=== PATIENT | male | born 1965 | race Caucasian/White ===

== ENCOUNTER 2019-01-07 16:15 | Emergency (ER) | payer MEDICARE, MEDICAID ==
--- NOTE | 2019-01-07 16:36 | ED Physician Chart ---
ED Chief Complaint/HPI - Patient Information Date Seen:: 01/07/19 Time Seen:: 16:30 History of Present Illness:: fever poor historian Allergies:: Allergies Allergy/AdvReac Type Severity Reaction Status Date / Time haloperidol [From Haldol] Allergy Verified 01/07/19 16:21 Vitals:: Vital Signs - 8 hr 01/07/19 16:21 Temp 97.7 F HR 85 RR 17 BP 123/77 O2 Sat % 95 Review:: Nurse's Note Reviewed, Transfer documents Reviewed ED Past Medical History - Past Medical History Obtainable: No (poor intake fever) Past Medical History: HTN, Other (epillepsy copd) Psychiatricy History: Schizophrenia ED Physical Exam - Physical Examination General/Constitutional: No distress, Non-toxic appearing Head: Atraumatic Eyes: Lids, conjuctiva normal Skin: Nl inspection ENMT: External ears, nose nl Neck: Nontender Respiratory: Nl effort/Exclusion Cardio Vascular: RRR, No murmur, gallop, rubs, NL S1 S2 GI: No tenderness/rebounding/guarding, Normal BS's, Nondistended, No McBurney tenderness Extremities: No tenderness or effusion, Full ROM Neuro/Psych: No focal deficits Misc: Normal back ED Assessment - Assessment General Assessment: febrile episode ED Septic Shock - . Is Septic Shock (SBP<90, OR Lactate>4 mmol\L) present?: No - <6hrs of presentation: Vital Signs: Vital Signs - 8 hr 01/07/19 16:21 Temp 97.7 F HR 85 RR 17 BP 123/77 O2 Sat % 95
[2019-01-07 17:04] LABS: % BASOPHILS 0.8 % (0.0-2.0); % LYMPHOCYTES 43.1 % (20.0-50.0); % MONOCYTES 11.3 % (2.0-10.0); % NEUTROPHILS 44.8 % (40.0-80.0); HEMATOCRIT 38.6 % (41.0-60); HEMOGLOBIN 12.7 gm/dL (12-16); LYMPHOCYTE ABSOLUTE 2.1 Th/cmm (1.5-3.0); MEAN CELL VOLUME 94.6 fl (80-99); MEAN CORPUSCULAR HEMOGLOBIN 31.2 pg (26.0-30.0); MEAN PLATELET VOLUME 7.4 fl; MONOCYTE ABSOLUTE 0.5 Th/cmm (0.3-1.0); NEUTROPHILE ABSOLUTE 2.2 Th/cmm (1.8-8.0); PLATELET COUNT 268 Th/cmm (150-400); RED BLOOD COUNT 4.08 Mil/cmm (4.30-5.70); RED CELL DISTRIBUTION WIDTH 14.5 % (11.5-20.0); WHITE BLOOD COUNT 4.8 Th/cmm (4.8-10.8)
[2019-01-07 17:13] LABS: URINE SOURCE RANDOM
[2019-01-07 17:16] LABS: URINE BILIRUBIN NEGATIVE (NEGATIVE); URINE BLOOD NEGATIVE (NEGATIVE); URINE GLUCOSE (UA) NEGATIVE (NEGATIVE); URINE KETONE NEGATIVE (NEGATIVE); URINE LEUKOCYTE ESTERASE NEGATIVE (NEGATIVE); URINE NITRATE NEGATIVE (NEGATIVE); URINE PH 7.5 (4.6 - 8.0); URINE PROTEIN NEGATIVE (NEGATIVE); URINE UROBILINOGEN 0.2 E.U./dL (0.2 - 1.0)
[2019-01-07 17:17] LABS: ALBUMIN 3.7 gm/dL (4.2-5.5); ANION GAP 11.9 (7.0-16.0); BUN - UREA NITROGEN 13 mg/dL (7-25); CARBON DIOXIDE 21.2 mEq/L (21.0-31.0); CHLORIDE 108 mEq/L (98-107); CREATININE - SERUM 0.9 mg/dL (0.7-1.3); GFR AFRICAN-AMERICAN > 60.0 ml/min (>90); GFR NON AFRICAN-AMERICAN > 60.0 ml/min; GLUCOSE 87 mg/dL (70-105); POTASSIUM SERUM 4.1 mEq/L (3.5-5.1); SODIUM SERUM 137 mEq/L (136-145)
[2019-01-07 17:24] LABS: URINE CLARITY CLEAR (CLEAR); URINE COLOR YELLOW; URINE MICROSCOPIC INDICATED? YES
[2019-01-07 17:26] LABS: URINE AMORPHOUS SEDIMENT MODERATE PHOSPHATES (NONE SEEN); URINE BACTERIA 1+ /hpf (NONE SEEN); URINE EPITHELIAL CELLS FEW /lpf (FEW); URINE RBC 0-2 /hpf (0-5); URINE WBC 0-2 /hpf (0-5)
--- NOTE | 2019-01-08 07:55 | Diagnostic Imaging Report ---
Portable chest x-ray Time: 1702 History: Pneumonia Allowing for portable technique the heart size is normal. No focal pulmonary parenchymal processes. No hilar or mediastinal abnormalities. There is elevation right hemidiaphragm with distended bowel. Impression: No acute abnormalities.
== END 2019-01-07 17:55 ==
LOC: ER 16:15
DX: R50.9 Fever, unspecified (principal); I10 Essential (primary) hypertension; F20.9 Schizophrenia, unspecified; Z88.5 Allergy status to narcotic agent
CPT/HCPCS: 36415-UA; 71045-TC; 80048-TC; 81001-TC; 82040-TC; 85025-TC; Z7502

== ENCOUNTER 2019-06-04 13:17 | Inpatient (IN) | payer MEDICARE, MEDICAID ==
--- NOTE | 2019-06-04 13:38 | ED Physician Chart ---
ED Chief Complaint/HPI - Patient Information Date Seen:: 06/04/19 Time Seen:: 13:20 Chief Complaint:: Agitation History of Present Illness:: onset x 3 days of agitation and hostile behavior; no report of trauma, SIs, H/As , neck pain, C/P, SOB, Abd. Pain, or urinary s/s Allergies:: Allergies Allergy/AdvReac Type Severity Reaction Status Date / Time haloperidol [From Haldol] Allergy Verified 06/04/19 13:32 Historian:: Patient, EMS Review:: Nurse's Note Reviewed, Old Chart Reviewed, EMS run form Reviewed ED Review of Systems - Review of Systems General/Constitutional: No fever, No chills, No weight loss, No weakness, No diaphoresis, No edema, No loss of appetite Skin: No skin lesions, No rash, No bruising Head: No headache, No light-headedness Eyes: No loss of vision, No pain, No diplopia ENT: No earache, No nasal drainage, No sore throat, No tinnitus Neck: No neck pain, No swelling, No thyromegaly, No stiffness, No mass noted Cardio Vascular: No chest pain, No palpitations, No PND, No orthopnea, No edema Pulmonary: No SOB, No cough, No sputum, No wheezing GI: No nausea, No vomiting, No diarrhea, No pain, No melena, No hematochezia, No constipation, No hematemesis G/U: No dysuria, No frequency, No hematuria, No nacturia Musculoskeletal: No bone or joint pain, No back pain, No muscle pain Endocrine: No polyuria, No polydipsia Psychiatric: Prior psych history, Depression, Anxiety, No suicidal ideation, No homicidal ideation, No auditory hallucination, No visual hallucination Hematopoietic: No bruising, No lymphadenopathy Allergic/Immuno: No urticaria, No angioedema Neurological: No syncope, No focal symptoms, No weakness, No paresthesia, No headache, No seizure, No dizziness, No confusion, No vertigo ED Past Medical History - Past Medical History Obtainable: Yes Past Medical History: HTN, Dyslipidemia, Seizures, Thyroid disorder Family History: HTN Social History: Non Smoker, No Alcohol, No Drug Use, Single, Care Facility Surgical History: None Psychiatricy History: Depression, Bipolar Medication: Reviewed Family Medical History - Family Member Mother History Unknown: Yes ED Physical Exam - Physical Examination General/Constitutional: Awake, Well-developed, well-nourished, Alert, No distress, GCS 15, Non-toxic appearing, Ambulatory Head: Atraumatic Eyes: Lids, conjuctiva normal, PERRL, EOMI Skin: Nl inspection, No rash, No skin lesions, No ecchymosis, Well hydrated, No lymphadenopathy ENMT: External ears, nose nl, TM canals nl, Nasal exam nl, Lips, teeth, gums nl , Oropharynx nl, Tonsils nl Neck: Nontender, Full ROM w/o pain, No JVD, No nuchal rigidity, No bruit, No mass, No stridor Respiratory: Nl effort/Exclusion, Clear to Auscultation, No Wheeze/Rhonchi/Rales Cardio Vascular: RRR, No murmur, gallop, rubs, NL S1 S2, Carotid/Femoral/Distal pulses equal bilaterally GI: No tenderness/rebounding/guarding, No organomegaly, No hernia, Normal BS's, Nondistended, No mass/bruits, No McBurney tenderness, Rectum exam nl : No CVA tenderness Extremities: No tenderness or effusion, Full ROM, normal strength in all extremities, No edema, Normal digits & nails Neuro/Psych: Alert/oriented, DTR's symmetric, Normal sensory exam, Normal motor strength, Judgement/insight normal, Mood normal, Normal gait, No focal deficits Other Neuro/Psych comments:: + Psychomotor Agitation; no SIs; Mood/Affect: Labile Misc: Normal back, No paraspinal tenderness ED Labs/Radiology/EKG Results - Lab Results Comments:: Reviewed - EKG Interpretations EKG Time:: 13:35 Rate & Rhythm: 72; NSR Comments:: non-specific st-t changes ED Septic Shock - . Is Septic Shock (SBP<90, OR Lactate>4 mmol\L) present?: No ED Reassessment (Disposition) - Reassessment Reassessment Condition:: Improved - Diagnosis Diagnosis:: Agitation; Medical Clearance; Psychosis; Bipolar Disorder - Aftercare/Follow up Instructions Aftercare/Follow-Up Instructions:: Counseled pt regarding lab results/diagnosis & need follow up, Counseled pt & family regarding lab results/diagnosis & need follow up - Patient Disposition Discharge/Transfer:: Acute Care w/in this hosp Admitted to:: [facility] Condition at Disposition:: Stable, Improved
[2019-06-04 13:53] LABS: % BASOPHILS 0.2 % (0.0-2.0); % EOSINOPHILS 0.2 % (0.0-5.0); % LYMPHOCYTES 23.7 % (20.0-50.0); % MONOCYTES 6.7 % (2.0-10.0); % NEUTROPHILS 69.2 % (40.0-80.0); HEMATOCRIT 41.1 % (41.0-60); HEMOGLOBIN 13.9 gm/dL (12-16); LYMPHOCYTE ABSOLUTE 2.4 Th/cmm (1.5-3.0); MEAN CELL VOLUME 94.5 fl (80-99); MEAN CORPUSCULAR HEMOGLOBIN 31.9 pg (26.0-30.0); MEAN CORPUSCULAR HGB CONC 33.7 pg (28.0-36.0); MONOCYTE ABSOLUTE 0.7 Th/cmm (0.3-1.0); NEUTROPHILE ABSOLUTE 7.2 Th/cmm (1.8-8.0); PLATELET COUNT 364 Th/cmm (150-400); RED BLOOD COUNT 4.35 Mil/cmm (4.30-5.70); RED CELL DISTRIBUTION WIDTH 13.4 % (11.5-20.0); WHITE BLOOD COUNT 10.3 Th/cmm (4.8-10.8)
[2019-06-04 14:07] LABS: URINE SOURCE CLEAN C
[2019-06-04 14:10] LABS: ALB/GLOB RATIO 1.3 (1.0-1.8); ALBUMIN 3.8 gm/dL (4.2-5.5); ALKALINE PHOSPHATASE 37 U/L (34-104); ANION GAP 10.9 (7.0-16.0); BILIRUBIN,TOTAL 0.4 mg/dL (0.3-1.0); BUN - UREA NITROGEN 16 mg/dL (7-25); CALCIUM SERUM 9.1 mg/dL (8.6-10.3); CARBON DIOXIDE 23.2 mEq/L (21.0-31.0); CHLORIDE 106 mEq/L (98-107); CHOLESTEROL 147 mg/dL (<200); CREATININE - SERUM 1.1 mg/dL (0.7-1.3); GFR AFRICAN-AMERICAN > 60.0 ml/min (>90); GFR NON AFRICAN-AMERICAN > 60.0 ml/min; GLUCOSE 86 mg/dL (70-105); HDL -HIGH DENSITY LIPOPROTEIN 29 mg/dL (23-92); POTASSIUM SERUM 4.1 mEq/L (3.5-5.1); SGOT 14 U/L (13-39); SGPT/ALT 10 U/L (7-52); SODIUM SERUM 136 mEq/L (136-145); TOTAL PROTEIN,SERUM 6.7 gm/dL (6.0-8.3); TRIGLYCERIDES 268 mg/dL (<150)
[2019-06-04 14:18] LABS: ACETAMINOPHEN < 10.0 ug/mL (10.0-30.0)
[2019-06-04 14:23] LABS: AMPHETAMINE URINE NEGATIVE (NEGATIVE); BARBITURATES URINE NEGATIVE (NEGATIVE); BENZODIAZEPINES QUAL URINE NEGATIVE (NEGATIVE); CANNABINOID THC NEGATIVE (NEGATIVE); COCAINE METABOLITE QUAL URINE NEGATIVE (NEGATIVE); METHADONE URINE NEGATIVE (NEGATIVE); METHAMPHETAMINES QUAL URINE NEGATIVE (NEGATIVE); OPIATES (MORPHINE) QUAL. URINE NEGATIVE (NEGATIVE); PHENCYCLIDINE (PCP) URINE NEGATIVE (NEGATIVE); TRICYCLICS (TCA) QUAL. URINE NEGATIVE (NEGATIVE)
[2019-06-04 14:26] LABS: URINE BILIRUBIN NEGATIVE (NEGATIVE); URINE BLOOD NEGATIVE (NEGATIVE); URINE GLUCOSE (UA) NEGATIVE (NEGATIVE); URINE KETONE NEGATIVE (NEGATIVE); URINE LEUKOCYTE ESTERASE NEGATIVE (NEGATIVE); URINE NITRATE NEGATIVE (NEGATIVE); URINE PH 6.5 (4.6 - 8.0); URINE PROTEIN NEGATIVE (NEGATIVE); URINE UROBILINOGEN 0.2 E.U./dL (0.2 - 1.0)
[2019-06-04 14:29] LABS: URINE CLARITY CLEAR (CLEAR); URINE COLOR YELLOW; URINE MICROSCOPIC INDICATED? YES
[2019-06-04 14:39] LABS: URINE RBC NONE SEEN /hpf (0-5); URINE WBC 0-2 /hpf (0-5)
[2019-06-04 14:40] LABS: URINE AMORPHOUS SEDIMENT FEW URATES (NONE SEEN); URINE BACTERIA FEW /hpf (NONE SEEN); URINE EPITHELIAL CELLS OCCASIONAL /lpf (FEW)
[2019-06-04 15:34] VITALS: BP 126/85
[2019-06-04] MEDS ORDERED: Pneumococcal Vaccine 0.5 mL Vial IM ONE (15:57)
[2019-06-04] MEDS ORDERED: Maalox 30 mL Cup PO PRN (15:59)
[2019-06-04] MEDS ORDERED: Magnesium Hydroxide (MOM) 30 mL UDC PO PRN (15:59)
--- NOTE | 2019-06-04 21:58 | History & Physical ---
ADMIT DATE: 06/04/2019 HISTORY OF PRESENT ILLNESS: The patient is a 53-year-old male with long history of hypothyroidism, dementia, and psychosis, admitted to [facility] under Dr. Escalante's service for the treatment. The patient is a poor historian. No pain, no shortness of breath, no cough, no fever, no chills. PAST MEDICAL HISTORY: Significant for hypothyroidism, dementia, and psychosis. PAST SURGICAL HISTORY: No recent surgery. ALLERGIES: None. MEDICATIONS: Follow admission reconciliation. SOCIAL HISTORY: He is a chronic smoker. No alcohol or drugs. FAMILY HISTORY: Noncontributory. REVIEW OF SYSTEMS: RENAL SYSTEM: No history of chronic renal disorder. CARDIOVASCULAR SYSTEM: No coronary artery disease. ENDOCRINE SYSTEM: History of hypothyroidism. GASTROINTESTINAL SYSTEM: No upper or lower GI bleed. NEUROLOGICAL SYSTEM: No seizure disorder. SKELETOMUSCULAR SYSTEM: No muscular dystrophy. HEMATOLOGICAL SYSTEM: No bleeding tendencies. RESPIRATORY SYSTEM: Chronic smoker. GENITOURINARY: No dysuria or hematuria. PHYSICAL EXAMINATION: GENERAL: He is awake, not coherent. VITAL SIGNS: Temperature 98.2, heart rate 72, blood pressure 129/78. HEENT: Pupils reactive to light and accommodation. Sclerae clear. NECK: Supple. Negative for lymphadenopathy, JVD or bruit. CHEST: Entry of air bilaterally normal. No rales, rhonchi or wheezing. HEART: S1, S2 normal. No gallop rhythm. ABDOMEN: Soft, bowel sounds positive. EXTREMITIES: No edema. BACK: Normal vertebrae. GENITALIA AND RECTAL: Done by primary physician, no complaint. NEUROLOGIC: He is awake, alert, not coherent. LABORATORY DATA: White blood cell 10.3, hemoglobin 13.9, hematocrit 41.1, platelets 362. Sodium 136, potassium 4.1, BUN 16, creatinine 0.1. ASSESSMENT: 1. Hypothyroidism. 2. Chronic smoking. 3. Dementia. 4. Psychosis. PLAN: The patient admitted to the hospital under Dr. Escalante's service. Medical problem addressed during hospitalization is psychosis. Problem addressed at discharge is hypothyroidism ____. The patient is medically stable for activity. Thank you, Dr. Escalante for asking me to see your patient. The patient will follow up with primary physician upon discharge. The patient is a full code. JOB# [id number]
[2019-06-05 08:06] LABS: A1C 5.4 % (4.8-5.6)
[2019-06-05] MEDS: Aspirin 81mg Chewable Tab PO SCH (09:11)
[2019-06-05] MEDS: Multivitamin Tab PO SCH (09:12)
--- NOTE | 2019-06-05 10:24 | Psychiatric Evaluation ---
DATE OF SERVICE: PSYCHIATRIC INITIAL EVALUATION AND MENTAL STATUS EXAMINATION PATIENT'S AGE: 53. SEX: Male. PHYSICIAN: Said Mary Escalante M.P.H. CHIEF COMPLAINT: "I need my medicine was cocaine." HISTORY OF PRESENT ILLNESS: The patient is a 53-year-old male who was transferred from [facility] because of increased agitation and increased irritability. The patient has been extremely restless and aggressive, and he was striking out towards the staff and peers, and was not able to follow any directions. Chart reviewed and the patient interviewed. The patient is extremely agitated and irritable. The patient also is asking for medication that has cocaine. Apparently, the patient has history of abusing cocaine, but he is not able to give me much information about it. The patient added that he lives in [place], though he came from [place] and he was not able to give me any information about [place]. He said he has no family and he also added that he was in correction, but he would not tell me why was he in correction. During interview, he also was restless and was getting more agitated and kept rambling from one topic to another and asking for cigarettes at times and cocaine other times. Also, staff reports that the patient did not sleep at all last night. PAST PSYCHIATRIC HISTORY: The patient has history of what seems to be schizoaffective disorder. PAST MEDICAL HISTORY: No medical problems mentioned and the patient denies. SOCIAL HISTORY: The patient lives in [facility]. He denies any current alcohol or drug use, but it seems that he might have history of using cocaine. ALLERGIES: No known allergies. MENTAL STATUS EXAMINATION: The patient appears his stated age. Tall. Disheveled. Restless. Thought processes are circumstantial and tangential with flight of ideas. The patient denied auditory or visual hallucinations, but seems to be paranoid and delusional. The patient denies any thoughts of suicide or homicide. The patient is alert and oriented to time, place, person, and situation. Intact immediate, recent and remote memories. Poor insight and poor judgment. Seems to be of average intelligence based on his verbal ability. ASSESSMENT: PRIMARY DIAGNOSIS: Schizoaffective disorder, manic episode, severe, with psychotic features. MEDICAL DIAGNOSES: None. TREATMENT PLAN: We will monitor the patient's behavior and condition closely. We will start the patient on Seroquel and trazodone, and we will adjust the dose. ESTIMATED LENGTH OF STAY: 5-7 days. PATIENT'S STRENGTHS AND WEAKNESSES: The patient's strength is not clear at this time except that he seems to be in relatively fair health. Weaknesses are his poor impulse control and poor judgment. AFTER DISCHARGE PLANS: The patient might return to [place] and outpatient treatment and followup will continue as an outpatient. [facility]# [id number]
--- NOTE | 2019-06-05 21:26 | Internal Medicine Prog Note ---
Internal Medicine Subjective - Subjective Service Date: 06/05/19 Patient seen and examined:: without staff (HE IS CONFUSED) Patient is:: awake, verbal, ambulating, talking, confused Per staff patient has:: no adverse event Internal Medicine Objective - Results Result Diagrams: 06/04/19 13:43 06/04/19 13:43 Recent Labs: Laboratory Last Values WBC 10.3 Th/cmm (4.8-10.8) 06/04/19 13:43 RBC 4.35 Mil/cmm (4.30-5.70) 06/04/19 13:43 Hgb 13.9 gm/dL (12-16) 06/04/19 13:43 Hct 41.1 % (41.0-60) 06/04/19 13:43 MCV 94.5 fl (80-99) 06/04/19 13:43 MCH 31.9 pg (26.0-30.0) H 06/04/19 13:43 MCHC Differential 33.7 pg (28.0-36.0) 06/04/19 13:43 RDW 13.4 % (11.5-20.0) 06/04/19 13:43 Plt Count 364 Th/cmm (150-400) 06/04/19 13:43 MPV 7.2 fl 06/04/19 13:43 Neutrophils % 69.2 % (40.0-80.0) 06/04/19 13:43 Lymphocytes % 23.7 % (20.0-50.0) 06/04/19 13:43 Monocytes % 6.7 % (2.0-10.0) 06/04/19 13:43 Eosinophils % 0.2 % (0.0-5.0) 06/04/19 13:43 Basophils % 0.2 % (0.0-2.0) 06/04/19 13:43 Sodium 136 mEq/L (136-145) 06/04/19 13:43 Potassium 4.1 mEq/L (3.5-5.1) 06/04/19 13:43 Chloride 106 mEq/L (98-107) 06/04/19 13:43 Carbon Dioxide 23.2 mEq/L (21.0-31.0) 06/04/19 13:43 Anion Gap 10.9 (7.0-16.0) 06/04/19 13:43 BUN 16 mg/dL (7-25) 06/04/19 13:43 Creatinine 1.1 mg/dL (0.7-1.3) 06/04/19 13:43 Est GFR ( Amer) > 60.0 ml/min (>90) 06/04/19 13:43 Est GFR (Non-Af Amer) > 60.0 ml/min 06/04/19 13:43 BUN/Creatinine Ratio 14.5 06/04/19 13:43 Glucose 86 mg/dL (70-105) 06/04/19 13:43 Calcium 9.1 mg/dL (8.6-10.3) 06/04/19 13:43 Total Bilirubin 0.4 mg/dL (0.3-1.0) 06/04/19 13:43 AST 14 U/L (13-39) 06/04/19 13:43 ALT 10 U/L (7-52) 06/04/19 13:43 Alkaline Phosphatase 37 U/L (34-104) 06/04/19 13:43 Troponin I < 0.01 ng/mL (0.01-0.05) L 06/04/19 13:43 Total Protein 6.7 gm/dL (6.0-8.3) 06/04/19 13:43 Albumin 3.8 gm/dL (4.2-5.5) L 06/04/19 13:43 Globulin 2.9 gm/dL 06/04/19 13:43 Albumin/Globulin Ratio 1.3 (1.0-1.8) 06/04/19 13:43 Triglycerides 268 mg/dL (<150) H 06/04/19 13:43 Cholesterol 147 mg/dL (<200) 06/04/19 13:43 LDL Cholesterol Direct 108 mg/dL (75-193) 06/04/19 13:43 HDL Cholesterol 29 mg/dL (23-92) 06/04/19 13:43 TSH 3.58 uIU/ml (0.34-5.60) 06/04/19 13:43 Urine Source CLEAN C 06/04/19 14:00 Urine Color YELLOW 06/04/19 14:00 Urine Clarity CLEAR (CLEAR) 06/04/19 14:00 Urine pH 6.5 (4.6 - 8.0) 06/04/19 14:00 Ur Specific [place] 1.020 (1.005-1.030) 06/04/19 14:00 Urine Protein NEGATIVE mg/dL (NEGATIVE) 06/04/19 14:00 Urine Glucose (UA) NEGATIVE mg/dL (NEGATIVE) 06/04/19 14:00 Urine Ketones NEGATIVE mg/dL (NEGATIVE) 06/04/19 14:00 Urine Blood NEGATIVE (NEGATIVE) 06/04/19 14:00 Urine Nitrate NEGATIVE (NEGATIVE) 06/04/19 14:00 Urine Bilirubin NEGATIVE (NEGATIVE) 06/04/19 14:00 Urine Urobilinogen 0.2 E.U./dL (0.2 - 1.0) 06/04/19 14:00 Ur Leukocyte Esterase NEGATIVE (NEGATIVE) 06/04/19 14:00 Urine RBC NONE SEEN /hpf (0-5) 06/04/19 14:00 Urine WBC 0-2 /hpf (0-5) 06/04/19 14:00 Ur Epithelial Cells OCCASIONAL /lpf (FEW) 06/04/19 14:00 Amorphous Sediment FEW URATES (NONE SEEN) 06/04/19 14:00 Urine Bacteria FEW /hpf (NONE SEEN) 06/04/19 14:00 Urine Mucus FEW /lpf (FEW) 06/04/19 14:00 Salicylates < 25.0 mg/L (30.0-100.0) L 06/04/19 13:43 Urine Opiates Screen NEGATIVE (NEGATIVE) 06/04/19 14:00 Urine Methadone Screen NEGATIVE (NEGATIVE) 06/04/19 14:00 Acetaminophen < 10.0 ug/mL (10.0-30.0) L 06/04/19 13:43 Ur Barbiturates Screen NEGATIVE (NEGATIVE) 06/04/19 14:00 Valproic Acid 93.9 ug/mL (50.0-100.0) 06/05/19 07:05 Ur Tricyclics Screen NEGATIVE (NEGATIVE) 06/04/19 14:00 Ur Phencyclidine Scrn NEGATIVE (NEGATIVE) 06/04/19 14:00 Amphetamines Screen NEGATIVE (NEGATIVE) 06/04/19 14:00 U Methamphetamines Scrn NEGATIVE (NEGATIVE) 06/04/19 14:00 U Benzodiazepines Scrn NEGATIVE (NEGATIVE) 06/04/19 14:00 U Cocaine Metab Screen NEGATIVE (NEGATIVE) 06/04/19 14:00 U Cannabinoids Screen NEGATIVE (NEGATIVE) 06/04/19 14:00 Ethyl Alcohol < 10 mg/dL (0-10) 06/04/19 13:43 - Physical Exam Vitals and I&O: Vital Signs Temp 98.4 F 06/05/19 20:42 Pulse 67 06/05/19 20:42 Resp 20 06/05/19 20:42 BP 111/73 06/05/19 20:42 Pulse Ox 96 06/05/19 20:42 Intake & Output 06/05/19 06/05/19 06/06/19 06:59 18:59 06:59 Intake Total 240 Balance 240 Intake: Oral 240 Other: # Voids 3 2 # Bowel Movements 1 0 Active Medications: Current Medications Acetaminophen (Tylenol) 650 mg PO Q4HR PRN PRN Reason: Mild Pain / Temp above 100 Stop: 08/03/19 15:58 Al Hydrox/Mg Hydrox/Simethicone (Maalox) 30 ml PO Q4HR PRN PRN Reason: GI DISTRESS Stop: 08/03/19 15:58 Aspirin (Aspirin Chewable) 81 mg PO DAILY [facility] Stop: 08/04/19 08:59 Last Admin: 06/05/19 09:11 Dose: 81 mg Divalproex Sodium (Depakote Er) 1,500 mg PO BID [facility]; Protocol Stop: 08/04/19 08:59 Last Admin: 06/05/19 16:52 Dose: 1,500 mg Docusate Sodium (Colace) 250 mg PO DAILY [facility] Stop: 08/04/19 08:59 Last Admin: 06/05/19 09:11 Dose: 250 mg Lorazepam (Ativan) 0.5 mg PO Q4HR PRN; Protocol PRN Reason: Agitation Stop: 08/03/19 16:04 Last Admin: 06/05/19 01:20 Dose: 0.5 mg Magnesium Hydroxide (Milk Of Magnesia) 30 ml PO HS PRN PRN Reason: Constipation Multivitamins/Vitamin C (Theragran) 1 tab PO DAILY [facility] Stop: 08/04/19 08:59 Last Admin: 06/05/19 09:12 Dose: 1 tab Quetiapine Fumarate (Seroquel) 200 mg PO TID [facility]; Protocol Stop: 08/04/19 08:59 Last Admin: 06/05/19 20:20 Dose: 200 mg Trazodone HCl (Desyrel) 200 mg PO HS [facility]; Protocol Stop: 08/04/19 20:59 Last Admin: 06/05/19 20:20 Dose: 200 mg Zolpidem Tartrate (Ambien) 5 mg PO HS PRN PRN Reason: Insomnia Stop: 08/03/19 15:58 Last Admin: 06/04/19 21:59 Dose: 5 mg General: demented HEENT: NC/AT, PERRLA, EOMI, anicteric sclerae, throat clear Neck: Supple, No JVD, No thyromegaly, +2 carotid pulse wo bruit, No LAD Lungs: CTAB Cardiovascular: RRR, Normal S1, Normal S2, without murmur Abdomen: soft, non-tender, non-distended Extremities: clear Neurological: no change Internal Medicine Assmt/Plan - Assessment Assessment: 1.HYPOTHYROIDISM. 2.CHRONIC SMOKING. 3.DEMENTIA. 4.PSYCHOSIS - Plan Plan: CONTINUE ON CURRENT MEDICATION AND DIET.
[2019-06-06] MEDS: Aspirin 81mg Chewable Tab PO SCH (08:48)
[2019-06-06] MEDS: Multivitamin Tab PO SCH (08:48)
--- NOTE | 2019-06-06 18:16 | Internal Medicine Prog Note ---
Internal Medicine Subjective - Subjective Service Date: 06/06/19 Patient seen and examined:: without staff (HE IS DOING WELL,CONFUSED) Patient is:: awake, verbal, ambulating, talking, confused Per staff patient has:: no adverse event Internal Medicine Objective - Results Result Diagrams: 06/04/19 13:43 06/04/19 13:43 Recent Labs: Laboratory Last Values WBC 10.3 Th/cmm (4.8-10.8) 06/04/19 13:43 RBC 4.35 Mil/cmm (4.30-5.70) 06/04/19 13:43 Hgb 13.9 gm/dL (12-16) 06/04/19 13:43 Hct 41.1 % (41.0-60) 06/04/19 13:43 MCV 94.5 fl (80-99) 06/04/19 13:43 MCH 31.9 pg (26.0-30.0) H 06/04/19 13:43 MCHC Differential 33.7 pg (28.0-36.0) 06/04/19 13:43 RDW 13.4 % (11.5-20.0) 06/04/19 13:43 Plt Count 364 Th/cmm (150-400) 06/04/19 13:43 MPV 7.2 fl 06/04/19 13:43 Neutrophils % 69.2 % (40.0-80.0) 06/04/19 13:43 Lymphocytes % 23.7 % (20.0-50.0) 06/04/19 13:43 Monocytes % 6.7 % (2.0-10.0) 06/04/19 13:43 Eosinophils % 0.2 % (0.0-5.0) 06/04/19 13:43 Basophils % 0.2 % (0.0-2.0) 06/04/19 13:43 Sodium 136 mEq/L (136-145) 06/04/19 13:43 Potassium 4.1 mEq/L (3.5-5.1) 06/04/19 13:43 Chloride 106 mEq/L (98-107) 06/04/19 13:43 Carbon Dioxide 23.2 mEq/L (21.0-31.0) 06/04/19 13:43 Anion Gap 10.9 (7.0-16.0) 06/04/19 13:43 BUN 16 mg/dL (7-25) 06/04/19 13:43 Creatinine 1.1 mg/dL (0.7-1.3) 06/04/19 13:43 Est GFR ( Amer) > 60.0 ml/min (>90) 06/04/19 13:43 Est GFR (Non-Af Amer) > 60.0 ml/min 06/04/19 13:43 BUN/Creatinine Ratio 14.5 06/04/19 13:43 Glucose 86 mg/dL (70-105) 06/04/19 13:43 Calcium 9.1 mg/dL (8.6-10.3) 06/04/19 13:43 Total Bilirubin 0.4 mg/dL (0.3-1.0) 06/04/19 13:43 AST 14 U/L (13-39) 06/04/19 13:43 ALT 10 U/L (7-52) 06/04/19 13:43 Alkaline Phosphatase 37 U/L (34-104) 06/04/19 13:43 Troponin I < 0.01 ng/mL (0.01-0.05) L 06/04/19 13:43 Total Protein 6.7 gm/dL (6.0-8.3) 06/04/19 13:43 Albumin 3.8 gm/dL (4.2-5.5) L 06/04/19 13:43 Globulin 2.9 gm/dL 06/04/19 13:43 Albumin/Globulin Ratio 1.3 (1.0-1.8) 06/04/19 13:43 Triglycerides 268 mg/dL (<150) H 06/04/19 13:43 Cholesterol 147 mg/dL (<200) 06/04/19 13:43 LDL Cholesterol Direct 108 mg/dL (75-193) 06/04/19 13:43 HDL Cholesterol 29 mg/dL (23-92) 06/04/19 13:43 TSH 3.58 uIU/ml (0.34-5.60) 06/04/19 13:43 Urine Source CLEAN C 06/04/19 14:00 Urine Color YELLOW 06/04/19 14:00 Urine Clarity CLEAR (CLEAR) 06/04/19 14:00 Urine pH 6.5 (4.6 - 8.0) 06/04/19 14:00 Ur Specific [place] 1.020 (1.005-1.030) 06/04/19 14:00 Urine Protein NEGATIVE mg/dL (NEGATIVE) 06/04/19 14:00 Urine Glucose (UA) NEGATIVE mg/dL (NEGATIVE) 06/04/19 14:00 Urine Ketones NEGATIVE mg/dL (NEGATIVE) 06/04/19 14:00 Urine Blood NEGATIVE (NEGATIVE) 06/04/19 14:00 Urine Nitrate NEGATIVE (NEGATIVE) 06/04/19 14:00 Urine Bilirubin NEGATIVE (NEGATIVE) 06/04/19 14:00 Urine Urobilinogen 0.2 E.U./dL (0.2 - 1.0) 06/04/19 14:00 Ur Leukocyte Esterase NEGATIVE (NEGATIVE) 06/04/19 14:00 Urine RBC NONE SEEN /hpf (0-5) 06/04/19 14:00 Urine WBC 0-2 /hpf (0-5) 06/04/19 14:00 Ur Epithelial Cells OCCASIONAL /lpf (FEW) 06/04/19 14:00 Amorphous Sediment FEW URATES (NONE SEEN) 06/04/19 14:00 Urine Bacteria FEW /hpf (NONE SEEN) 06/04/19 14:00 Urine Mucus FEW /lpf (FEW) 06/04/19 14:00 Salicylates < 25.0 mg/L (30.0-100.0) L 06/04/19 13:43 Urine Opiates Screen NEGATIVE (NEGATIVE) 06/04/19 14:00 Urine Methadone Screen NEGATIVE (NEGATIVE) 06/04/19 14:00 Acetaminophen < 10.0 ug/mL (10.0-30.0) L 06/04/19 13:43 Ur Barbiturates Screen NEGATIVE (NEGATIVE) 06/04/19 14:00 Valproic Acid 93.9 ug/mL (50.0-100.0) 06/05/19 07:05 Ur Tricyclics Screen NEGATIVE (NEGATIVE) 06/04/19 14:00 Ur Phencyclidine Scrn NEGATIVE (NEGATIVE) 06/04/19 14:00 Amphetamines Screen NEGATIVE (NEGATIVE) 06/04/19 14:00 U Methamphetamines Scrn NEGATIVE (NEGATIVE) 06/04/19 14:00 U Benzodiazepines Scrn NEGATIVE (NEGATIVE) 06/04/19 14:00 U Cocaine Metab Screen NEGATIVE (NEGATIVE) 06/04/19 14:00 U Cannabinoids Screen NEGATIVE (NEGATIVE) 06/04/19 14:00 Ethyl Alcohol < 10 mg/dL (0-10) 06/04/19 13:43 - Physical Exam Vitals and I&O: Vital Signs Temp 97.1 F 06/06/19 14:00 Pulse 63 06/06/19 14:00 Resp 20 06/06/19 14:00 BP 100/59 06/06/19 14:00 Pulse Ox 98 06/06/19 14:00 Intake & Output 06/05/19 06/06/19 06/06/19 18:59 06:59 18:59 Intake Total 480 Balance 480 Intake: Oral 480 Other: # Voids 3 3 # Bowel Movements 1 0 Active Medications: Current Medications Acetaminophen (Tylenol) 650 mg PO Q4HR PRN PRN Reason: Mild Pain / Temp above 100 Stop: 08/03/19 15:58 Al Hydrox/Mg Hydrox/Simethicone (Maalox) 30 ml PO Q4HR PRN PRN Reason: GI DISTRESS Stop: 08/03/19 15:58 Aspirin (Aspirin Chewable) 81 mg PO DAILY [facility] Stop: 08/04/19 08:59 Last Admin: 06/06/19 08:48 Dose: 81 mg Clonazepam (Klonopin) 0.5 mg PO BID [facility]; Protocol Stop: 08/05/19 16:59 Last Admin: 06/06/19 17:07 Dose: 0.5 mg Divalproex Sodium (Depakote Er) 1,500 mg PO BID [facility]; Protocol Stop: 08/04/19 08:59 Last Admin: 06/06/19 17:08 Dose: 1,500 mg Docusate Sodium (Colace) 250 mg PO DAILY [facility] Stop: 08/04/19 08:59 Last Admin: 06/06/19 08:48 Dose: 250 mg Lorazepam (Ativan) 0.5 mg PO Q4HR PRN; Protocol PRN Reason: Agitation Stop: 08/03/19 16:04 Last Admin: 06/06/19 08:48 Dose: 0.5 mg Magnesium Hydroxide (Milk Of Magnesia) 30 ml PO HS PRN PRN Reason: Constipation Multivitamins/Vitamin C (Theragran) 1 tab PO DAILY [facility] Stop: 08/04/19 08:59 Last Admin: 06/06/19 08:48 Dose: 1 tab Quetiapine Fumarate (Seroquel) 200 mg PO TID [facility]; Protocol Stop: 08/04/19 08:59 Last Admin: 06/06/19 14:09 Dose: 200 mg Trazodone HCl (Desyrel) 200 mg PO HS [facility]; Protocol Stop: 08/04/19 20:59 Last Admin: 06/05/19 20:20 Dose: 200 mg Zolpidem Tartrate (Ambien) 5 mg PO HS PRN PRN Reason: Insomnia Stop: 08/03/19 15:58 Last Admin: 06/04/19 21:59 Dose: 5 mg General: demented HEENT: NC/AT, PERRLA, EOMI, anicteric sclerae, throat clear Neck: Supple, No JVD, No thyromegaly, +2 carotid pulse wo bruit, No LAD Lungs: CTAB Cardiovascular: RRR, Normal S1, Normal S2, without murmur Abdomen: soft, non-tender, non-distended Extremities: clear Neurological: no change Internal Medicine Assmt/Plan - Assessment Assessment: 1.HYPOTHYROIDISM. 2.CHRONIC SMOKING. 3.DEMENTIA. 4.PSYCHOSIS - Plan Plan: CONTINUE ON CURRENT MEDICATION AND DIET.
--- NOTE | 2019-06-06 22:23 | Progress Notes ---
DATE: 06/06/2019 SUBJECTIVE: A 53-year-old male transferred from [place], increased agitation, irritability, restless, seems psychotic on exam, just writing and writing and writing. He will not even look up; he is writing things on paper that seem like code. Seems to be rambling. He is actually refusing to talk to me, telling me that he is writing. He does not want to be bothered. Ongoing concerns at this time for his behaviors, gets agitated, very angry, upset. Unclear if he is experiencing ongoing psychosis or possibly OCD signs and symptoms, but psychosis seems consistent given that [place] is [place] to write down a "cocaine formula." PLAN: We will continue to monitor. Continue dosing of Depakote and Seroquel. We will await studies. We will also add Klonopin to his regimen. JOB# [id number]
[2019-06-07] MEDS: Multivitamin Tab PO SCH (09:04)
[2019-06-07] MEDS: Aspirin 81mg Chewable Tab PO SCH (09:04)
--- NOTE | 2019-06-07 18:32 | Internal Medicine Prog Note ---
Internal Medicine Subjective - Subjective Service Date: 06/07/19 Patient seen and examined:: with staff (HE IS DOING BETTER,STILL CONFUSED) Patient is:: awake, verbal, ambulating, talking, confused Per staff patient has:: no adverse event Internal Medicine Objective - Results Result Diagrams: 06/04/19 13:43 06/04/19 13:43 Recent Labs: Laboratory Last Values WBC 10.3 Th/cmm (4.8-10.8) 06/04/19 13:43 RBC 4.35 Mil/cmm (4.30-5.70) 06/04/19 13:43 Hgb 13.9 gm/dL (12-16) 06/04/19 13:43 Hct 41.1 % (41.0-60) 06/04/19 13:43 MCV 94.5 fl (80-99) 06/04/19 13:43 MCH 31.9 pg (26.0-30.0) H 06/04/19 13:43 MCHC Differential 33.7 pg (28.0-36.0) 06/04/19 13:43 RDW 13.4 % (11.5-20.0) 06/04/19 13:43 Plt Count 364 Th/cmm (150-400) 06/04/19 13:43 MPV 7.2 fl 06/04/19 13:43 Neutrophils % 69.2 % (40.0-80.0) 06/04/19 13:43 Lymphocytes % 23.7 % (20.0-50.0) 06/04/19 13:43 Monocytes % 6.7 % (2.0-10.0) 06/04/19 13:43 Eosinophils % 0.2 % (0.0-5.0) 06/04/19 13:43 Basophils % 0.2 % (0.0-2.0) 06/04/19 13:43 Sodium 136 mEq/L (136-145) 06/04/19 13:43 Potassium 4.1 mEq/L (3.5-5.1) 06/04/19 13:43 Chloride 106 mEq/L (98-107) 06/04/19 13:43 Carbon Dioxide 23.2 mEq/L (21.0-31.0) 06/04/19 13:43 Anion Gap 10.9 (7.0-16.0) 06/04/19 13:43 BUN 16 mg/dL (7-25) 06/04/19 13:43 Creatinine 1.1 mg/dL (0.7-1.3) 06/04/19 13:43 Est GFR ( Amer) > 60.0 ml/min (>90) 06/04/19 13:43 Est GFR (Non-Af Amer) > 60.0 ml/min 06/04/19 13:43 BUN/Creatinine Ratio 14.5 06/04/19 13:43 Glucose 86 mg/dL (70-105) 06/04/19 13:43 Calcium 9.1 mg/dL (8.6-10.3) 06/04/19 13:43 Total Bilirubin 0.4 mg/dL (0.3-1.0) 06/04/19 13:43 AST 14 U/L (13-39) 06/04/19 13:43 ALT 10 U/L (7-52) 06/04/19 13:43 Alkaline Phosphatase 37 U/L (34-104) 06/04/19 13:43 Troponin I < 0.01 ng/mL (0.01-0.05) L 06/04/19 13:43 Total Protein 6.7 gm/dL (6.0-8.3) 06/04/19 13:43 Albumin 3.8 gm/dL (4.2-5.5) L 06/04/19 13:43 Globulin 2.9 gm/dL 06/04/19 13:43 Albumin/Globulin Ratio 1.3 (1.0-1.8) 06/04/19 13:43 Triglycerides 268 mg/dL (<150) H 06/04/19 13:43 Cholesterol 147 mg/dL (<200) 06/04/19 13:43 LDL Cholesterol Direct 108 mg/dL (75-193) 06/04/19 13:43 HDL Cholesterol 29 mg/dL (23-92) 06/04/19 13:43 TSH 3.58 uIU/ml (0.34-5.60) 06/04/19 13:43 Urine Source CLEAN C 06/04/19 14:00 Urine Color YELLOW 06/04/19 14:00 Urine Clarity CLEAR (CLEAR) 06/04/19 14:00 Urine pH 6.5 (4.6 - 8.0) 06/04/19 14:00 Ur Specific [place] 1.020 (1.005-1.030) 06/04/19 14:00 Urine Protein NEGATIVE mg/dL (NEGATIVE) 06/04/19 14:00 Urine Glucose (UA) NEGATIVE mg/dL (NEGATIVE) 06/04/19 14:00 Urine Ketones NEGATIVE mg/dL (NEGATIVE) 06/04/19 14:00 Urine Blood NEGATIVE (NEGATIVE) 06/04/19 14:00 Urine Nitrate NEGATIVE (NEGATIVE) 06/04/19 14:00 Urine Bilirubin NEGATIVE (NEGATIVE) 06/04/19 14:00 Urine Urobilinogen 0.2 E.U./dL (0.2 - 1.0) 06/04/19 14:00 Ur Leukocyte Esterase NEGATIVE (NEGATIVE) 06/04/19 14:00 Urine RBC NONE SEEN /hpf (0-5) 06/04/19 14:00 Urine WBC 0-2 /hpf (0-5) 06/04/19 14:00 Ur Epithelial Cells OCCASIONAL /lpf (FEW) 06/04/19 14:00 Amorphous Sediment FEW URATES (NONE SEEN) 06/04/19 14:00 Urine Bacteria FEW /hpf (NONE SEEN) 06/04/19 14:00 Urine Mucus FEW /lpf (FEW) 06/04/19 14:00 Salicylates < 25.0 mg/L (30.0-100.0) L 06/04/19 13:43 Urine Opiates Screen NEGATIVE (NEGATIVE) 06/04/19 14:00 Urine Methadone Screen NEGATIVE (NEGATIVE) 06/04/19 14:00 Acetaminophen < 10.0 ug/mL (10.0-30.0) L 06/04/19 13:43 Ur Barbiturates Screen NEGATIVE (NEGATIVE) 06/04/19 14:00 Valproic Acid 93.9 ug/mL (50.0-100.0) 06/05/19 07:05 Ur Tricyclics Screen NEGATIVE (NEGATIVE) 06/04/19 14:00 Ur Phencyclidine Scrn NEGATIVE (NEGATIVE) 06/04/19 14:00 Amphetamines Screen NEGATIVE (NEGATIVE) 06/04/19 14:00 U Methamphetamines Scrn NEGATIVE (NEGATIVE) 06/04/19 14:00 U Benzodiazepines Scrn NEGATIVE (NEGATIVE) 06/04/19 14:00 U Cocaine Metab Screen NEGATIVE (NEGATIVE) 06/04/19 14:00 U Cannabinoids Screen NEGATIVE (NEGATIVE) 06/04/19 14:00 Ethyl Alcohol < 10 mg/dL (0-10) 06/04/19 13:43 - Physical Exam Vitals and I&O: Vital Signs Temp 97.9 F 06/07/19 14:00 Pulse 68 06/07/19 14:00 Resp 20 06/07/19 14:00 BP 113/75 06/07/19 14:00 Pulse Ox 98 06/07/19 14:00 Intake & Output 06/06/19 06/07/19 06/07/19 18:59 06:59 18:59 Intake Total 1000 120 Balance 1000 120 Intake: Oral 1000 120 Other: # Voids 4 3 # Bowel Movements 1 Active Medications: Current Medications Acetaminophen (Tylenol) 650 mg PO Q4HR PRN PRN Reason: Mild Pain / Temp above 100 Stop: 08/03/19 15:58 Al Hydrox/Mg Hydrox/Simethicone (Maalox) 30 ml PO Q4HR PRN PRN Reason: GI DISTRESS Stop: 08/03/19 15:58 Aspirin (Aspirin Chewable) 81 mg PO DAILY EREN Stop: 08/04/19 08:59 Last Admin: 06/07/19 09:04 Dose: 81 mg Clonazepam (Klonopin) 1 mg PO BID EREN; Protocol Stop: 08/06/19 16:59 Last Admin: 06/07/19 16:20 Dose: 1 mg Divalproex Sodium (Depakote Er) 1,500 mg PO BID EREN; Protocol Stop: 08/04/19 08:59 Last Admin: 06/07/19 16:20 Dose: 1,500 mg Docusate Sodium (Colace) 250 mg PO DAILY EREN Stop: 08/04/19 08:59 Last Admin: 06/07/19 09:04 Dose: 250 mg Lorazepam (Ativan) 0.5 mg PO Q4HR PRN; Protocol PRN Reason: Agitation Stop: 08/03/19 16:04 Last Admin: 06/07/19 14:14 Dose: 0.5 mg Magnesium Hydroxide (Milk Of Magnesia) 30 ml PO HS PRN PRN Reason: Constipation Multivitamins/Vitamin C (Theragran) 1 tab PO DAILY EREN Stop: 08/04/19 08:59 Last Admin: 06/07/19 09:04 Dose: 1 tab Quetiapine Fumarate (Seroquel) 200 mg PO TID EREN; Protocol Stop: 08/04/19 08:59 Last Admin: 06/07/19 13:56 Dose: 200 mg Trazodone HCl (Desyrel) 200 mg PO HS EREN; Protocol Stop: 08/04/19 20:59 Last Admin: 06/06/19 20:28 Dose: 200 mg Zolpidem Tartrate (Ambien) 5 mg PO HS PRN PRN Reason: Insomnia Stop: 08/03/19 15:58 Last Admin: 06/04/19 21:59 Dose: 5 mg General: demented HEENT: NC/AT, PERRLA, EOMI, anicteric sclerae, throat clear Neck: Supple, No JVD, No thyromegaly, +2 carotid pulse wo bruit, No LAD Lungs: CTAB Cardiovascular: RRR, Normal S1, Normal S2, without murmur Abdomen: soft, non-tender, non-distended Extremities: clear Neurological: no change Internal Medicine Assmt/Plan - Assessment Assessment: 1.HYPOTHYROIDISM. 2.CHRONIC SMOKING. 3.DEMENTIA. 4.PSYCHOSIS - Plan Plan: CONTINUE ON CURRENT MEDICATION AND DIET.
--- NOTE | 2019-06-08 00:08 | Progress Notes ---
DATE: 06/07/2019 SUBJECTIVE: A 53-year-old male, currently in the hospital, transferred from [place], very restless, aggressive, striking out at staff, hypersexual. Right now, he is humping the bed, having sex essentially with his bed right now. When I tried to interrupt him, he states "excuse me, excuse me" and keeps humping the bed. He is completely naked. The patient is bizarre, confused, as noted very hypersexual, in his room, naked, having sex with the bed, currently on dosing of Seroquel. The patient may benefit from dose adjustments of medications. We will continue to monitor. [facility]# [id number]
[2019-06-08] MEDS: Aspirin 81mg Chewable Tab PO SCH (08:06)
[2019-06-08] MEDS: Multivitamin Tab PO SCH (08:06)
--- NOTE | 2019-06-08 16:42 | General Progress Note ---
Subjective - Review of Systems Service Date: 06/08/19 Objective - Results Result Diagrams: 06/04/19 13:43 06/04/19 13:43 Recent Labs: Laboratory Last Values WBC 10.3 Th/cmm (4.8-10.8) 06/04/19 13:43 RBC 4.35 Mil/cmm (4.30-5.70) 06/04/19 13:43 Hgb 13.9 gm/dL (12-16) 06/04/19 13:43 Hct 41.1 % (41.0-60) 06/04/19 13:43 MCV 94.5 fl (80-99) 06/04/19 13:43 MCH 31.9 pg (26.0-30.0) H 06/04/19 13:43 MCHC Differential 33.7 pg (28.0-36.0) 06/04/19 13:43 RDW 13.4 % (11.5-20.0) 06/04/19 13:43 Plt Count 364 Th/cmm (150-400) 06/04/19 13:43 MPV 7.2 fl 06/04/19 13:43 Neutrophils % 69.2 % (40.0-80.0) 06/04/19 13:43 Lymphocytes % 23.7 % (20.0-50.0) 06/04/19 13:43 Monocytes % 6.7 % (2.0-10.0) 06/04/19 13:43 Eosinophils % 0.2 % (0.0-5.0) 06/04/19 13:43 Basophils % 0.2 % (0.0-2.0) 06/04/19 13:43 Sodium 136 mEq/L (136-145) 06/04/19 13:43 Potassium 4.1 mEq/L (3.5-5.1) 06/04/19 13:43 Chloride 106 mEq/L (98-107) 06/04/19 13:43 Carbon Dioxide 23.2 mEq/L (21.0-31.0) 06/04/19 13:43 Anion Gap 10.9 (7.0-16.0) 06/04/19 13:43 BUN 16 mg/dL (7-25) 06/04/19 13:43 Creatinine 1.1 mg/dL (0.7-1.3) 06/04/19 13:43 Est GFR ( Amer) > 60.0 ml/min (>90) 06/04/19 13:43 Est GFR (Non-Af Amer) > 60.0 ml/min 06/04/19 13:43 BUN/Creatinine Ratio 14.5 06/04/19 13:43 Glucose 86 mg/dL (70-105) 06/04/19 13:43 Calcium 9.1 mg/dL (8.6-10.3) 06/04/19 13:43 Total Bilirubin 0.4 mg/dL (0.3-1.0) 06/04/19 13:43 AST 14 U/L (13-39) 06/04/19 13:43 ALT 10 U/L (7-52) 06/04/19 13:43 Alkaline Phosphatase 37 U/L (34-104) 06/04/19 13:43 Troponin I < 0.01 ng/mL (0.01-0.05) L 06/04/19 13:43 Total Protein 6.7 gm/dL (6.0-8.3) 06/04/19 13:43 Albumin 3.8 gm/dL (4.2-5.5) L 06/04/19 13:43 Globulin 2.9 gm/dL 06/04/19 13:43 Albumin/Globulin Ratio 1.3 (1.0-1.8) 06/04/19 13:43 Triglycerides 268 mg/dL (<150) H 06/04/19 13:43 Cholesterol 147 mg/dL (<200) 06/04/19 13:43 LDL Cholesterol Direct 108 mg/dL (75-193) 06/04/19 13:43 HDL Cholesterol 29 mg/dL (23-92) 06/04/19 13:43 TSH 3.58 uIU/ml (0.34-5.60) 06/04/19 13:43 Urine Source CLEAN C 06/04/19 14:00 Urine Color YELLOW 06/04/19 14:00 Urine Clarity CLEAR (CLEAR) 06/04/19 14:00 Urine pH 6.5 (4.6 - 8.0) 06/04/19 14:00 Ur Specific [place] 1.020 (1.005-1.030) 06/04/19 14:00 Urine Protein NEGATIVE mg/dL (NEGATIVE) 06/04/19 14:00 Urine Glucose (UA) NEGATIVE mg/dL (NEGATIVE) 06/04/19 14:00 Urine Ketones NEGATIVE mg/dL (NEGATIVE) 06/04/19 14:00 Urine Blood NEGATIVE (NEGATIVE) 06/04/19 14:00 Urine Nitrate NEGATIVE (NEGATIVE) 06/04/19 14:00 Urine Bilirubin NEGATIVE (NEGATIVE) 06/04/19 14:00 Urine Urobilinogen 0.2 E.U./dL (0.2 - 1.0) 06/04/19 14:00 Ur Leukocyte Esterase NEGATIVE (NEGATIVE) 06/04/19 14:00 Urine RBC NONE SEEN /hpf (0-5) 06/04/19 14:00 Urine WBC 0-2 /hpf (0-5) 06/04/19 14:00 Ur Epithelial Cells OCCASIONAL /lpf (FEW) 06/04/19 14:00 Amorphous Sediment FEW URATES (NONE SEEN) 06/04/19 14:00 Urine Bacteria FEW /hpf (NONE SEEN) 06/04/19 14:00 Urine Mucus FEW /lpf (FEW) 06/04/19 14:00 Salicylates < 25.0 mg/L (30.0-100.0) L 06/04/19 13:43 Urine Opiates Screen NEGATIVE (NEGATIVE) 06/04/19 14:00 Urine Methadone Screen NEGATIVE (NEGATIVE) 06/04/19 14:00 Acetaminophen < 10.0 ug/mL (10.0-30.0) L 06/04/19 13:43 Ur Barbiturates Screen NEGATIVE (NEGATIVE) 06/04/19 14:00 Valproic Acid 93.9 ug/mL (50.0-100.0) 06/05/19 07:05 Ur Tricyclics Screen NEGATIVE (NEGATIVE) 06/04/19 14:00 Ur Phencyclidine Scrn NEGATIVE (NEGATIVE) 06/04/19 14:00 Amphetamines Screen NEGATIVE (NEGATIVE) 06/04/19 14:00 U Methamphetamines Scrn NEGATIVE (NEGATIVE) 06/04/19 14:00 U Benzodiazepines Scrn NEGATIVE (NEGATIVE) 06/04/19 14:00 U Cocaine Metab Screen NEGATIVE (NEGATIVE) 06/04/19 14:00 U Cannabinoids Screen NEGATIVE (NEGATIVE) 06/04/19 14:00 Ethyl Alcohol < 10 mg/dL (0-10) 06/04/19 13:43 - Physical Exam Vitals and I&O: Vital Signs Temp 98.2 F 06/08/19 15:43 Pulse 73 06/08/19 15:43 Resp 20 06/08/19 15:43 BP 132/80 06/08/19 15:43 Pulse Ox 97 06/08/19 15:43 Intake & Output 06/07/19 06/08/19 06/08/19 18:59 06:59 18:59 Intake Total 1000 Balance 1000 Intake: Oral 1000 Other: # Voids 4 # Bowel Movements 1 Active Medications: Current Medications Acetaminophen (Tylenol) 650 mg PO Q4HR PRN PRN Reason: Mild Pain / Temp above 100 Stop: 08/03/19 15:58 Al Hydrox/Mg Hydrox/Simethicone (Maalox) 30 ml PO Q4HR PRN PRN Reason: GI DISTRESS Stop: 08/03/19 15:58 Aspirin (Aspirin Chewable) 81 mg PO DAILY EREN Stop: 08/04/19 08:59 Last Admin: 06/08/19 08:06 Dose: 81 mg Clonazepam (Klonopin) 1 mg PO BID EREN; Protocol Stop: 08/06/19 16:59 Last Admin: 06/08/19 08:07 Dose: 1 mg Divalproex Sodium (Depakote Er) 1,500 mg PO BID EREN; Protocol Stop: 08/04/19 08:59 Last Admin: 06/08/19 08:07 Dose: 1,500 mg Docusate Sodium (Colace) 250 mg PO DAILY EREN Stop: 08/04/19 08:59 Last Admin: 06/08/19 08:07 Dose: 250 mg [place]in Carbonate (Eskalith) 300 mg PO TID EREN; Protocol Stop: 08/07/19 08:59 Last Admin: 06/08/19 13:49 Dose: 300 mg Lorazepam (Ativan) 0.5 mg PO Q4HR PRN; Protocol PRN Reason: Agitation Stop: 08/03/19 16:04 Last Admin: 06/08/19 03:18 Dose: 0.5 mg Magnesium Hydroxide (Milk Of Magnesia) 30 ml PO HS PRN PRN Reason: Constipation Multivitamins/Vitamin C (Theragran) 1 tab PO DAILY EREN Stop: 08/04/19 08:59 Last Admin: 08/31/19 08:06 Dose: 1 tab Quetiapine Fumarate (Seroquel) 200 mg PO TID EREN; Protocol Stop: 08/04/19 08:59 Last Admin: 06/08/19 13:49 Dose: 200 mg Trazodone HCl (Desyrel) 200 mg PO HS EREN; Protocol Stop: 08/04/19 20:59 Last Admin: 06/07/19 21:01 Dose: 200 mg Zolpidem Tartrate (Ambien) 5 mg PO HS PRN PRN Reason: Insomnia Stop: 08/03/19 15:58 Last Admin: 06/04/19 21:59 Dose: 5 mg General: No acute distress HEENT: Atraumatic, PERRLA Neck: Supple, JVD Cardiovascular: Regular rate, Normal S1, Normal S2 Lungs: Clear to auscultation Abdomen: Bowel sounds, Soft Assessment/Plan - Assessment Assessment: 1.HYPOTHYROIDISM. 2.CHRONIC SMOKING. 3.DEMENTIA. 4.PSYCHOSIS - Plan Plan: continue current treatment Nutritional Asmnt/Malnutr-PDOC - Dietary Evaluation Malnutrition Findings (Please click <Entered> for more info): Nutritional Asmnt/Malnutrition Start: 06/08/19 10: 34 Text: Status: Complete Freq: Protocol: Document 06/08/19 10:35 KULWANT (Rec: 06/08/19 10:44 KULWANT RODRIGUEZ- [id number]) Nutritional Asmnt/Malnutrition Patient General Information Nutritional Screening Low Risk Diagnosis Psychosis Pertinent Medical Hx/Surgical Hx Hypothyroidism, dementia, psychosis Subjective Information Patient was admitted from [place]. Tolerating current diet order with adequate intake (100% of meals ). Current Diet Order/ Nutrition Support Regular Patient / S.O Not Indicated Pertinent Medications Maalox, Colace, MOM, Theragran Pertinent Labs (06/04) Albumin 3.8, TAG 268 Nutritional Hx/Data Height 1.85 m Height (Calculated Centimeters) 185.4 Current Weight (lbs) 90.718 kg Weight (Calculated Kilograms) 90.7 Weight (Calculated Grams) 18976.5 [place] Body Weight 184 % [place] Body Weight 108 Body Mass Index (BMI) 26.4 Recent Weight Change No Weight Status Overweight GI Symptoms GI Symptoms None Last BM 06/07 x 1 Difficult in: None Food Allergies No Cultural/Ethnic/Muslim Belief none indicated Usual diet at home unknown Skin Integrity/Comment: [place] 22, dryness Current %PO Good (75-100%) Estimated Nutritional Goals BEE in Kcals: Using Current wt Calories/Kcals/Kg 90.9 kg CBW (22-27 kcal/kg) Kcals Calculated ~1855-5201 kcal/day Protein: Using Current wt Protein g/k.8-1gm/kg Protein Calculated ~70-90 gm/day Fluid: ml ~7036-1584 ml/day (1 ml/kcal) Nutritional Problem No current Nutrition Prob Problem No nutrition diagnosis at this time Intervention/Recommendation Comments 1. Continue regular diet as tolerated by patient. Expected Outcomes/Goals Expected Outcomes/Goals Oral intake >75% of meals, weight stable or trend toward IBW, nutrition related labs WNL F/U LR 06/15
--- NOTE | 2019-06-09 02:36 | Progress Notes ---
DATE: 06/08/2019 SUBJECTIVE: The patient is currently in the hospital, very poor sleep, nonsensical, believes he is some special scientist electronics coming up with equations for cocaine, mumbling, bizarre, writing things down on paper, complete gibberish, easily agitated, yelling, very grandiose. The patient is still appearing quite manic. PLAN: We will continue dosing of Klonopin, Depakote, Seroquel, trazodone ____. Dictation Ends Here. JOB# [id number]
[2019-06-09] MEDS: Multivitamin Tab PO SCH (09:07)
[2019-06-09] MEDS: Aspirin 81mg Chewable Tab PO SCH (09:07)
--- NOTE | 2019-06-09 11:09 | General Progress Note ---
Subjective - Review of Systems Service Date: 06/09/19 Subjective: resting comfortably no distress Objective - Results Result Diagrams: 06/04/19 13:43 06/04/19 13:43 Recent Labs: Laboratory Last Values WBC 10.3 Th/cmm (4.8-10.8) 06/04/19 13:43 RBC 4.35 Mil/cmm (4.30-5.70) 06/04/19 13:43 Hgb 13.9 gm/dL (12-16) 06/04/19 13:43 Hct 41.1 % (41.0-60) 06/04/19 13:43 MCV 94.5 fl (80-99) 06/04/19 13:43 MCH 31.9 pg (26.0-30.0) H 06/04/19 13:43 MCHC Differential 33.7 pg (28.0-36.0) 06/04/19 13:43 RDW 13.4 % (11.5-20.0) 06/04/19 13:43 Plt Count 364 Th/cmm (150-400) 06/04/19 13:43 MPV 7.2 fl 06/04/19 13:43 Neutrophils % 69.2 % (40.0-80.0) 06/04/19 13:43 Lymphocytes % 23.7 % (20.0-50.0) 06/04/19 13:43 Monocytes % 6.7 % (2.0-10.0) 06/04/19 13:43 Eosinophils % 0.2 % (0.0-5.0) 06/04/19 13:43 Basophils % 0.2 % (0.0-2.0) 06/04/19 13:43 Sodium 136 mEq/L (136-145) 06/04/19 13:43 Potassium 4.1 mEq/L (3.5-5.1) 06/04/19 13:43 Chloride 106 mEq/L (98-107) 06/04/19 13:43 Carbon Dioxide 23.2 mEq/L (21.0-31.0) 06/04/19 13:43 Anion Gap 10.9 (7.0-16.0) 06/04/19 13:43 BUN 16 mg/dL (7-25) 06/04/19 13:43 Creatinine 1.1 mg/dL (0.7-1.3) 06/04/19 13:43 Est GFR ( Amer) > 60.0 ml/min (>90) 06/04/19 13:43 Est GFR (Non-Af Amer) > 60.0 ml/min 06/04/19 13:43 BUN/Creatinine Ratio 14.5 06/04/19 13:43 Glucose 86 mg/dL (70-105) 06/04/19 13:43 Calcium 9.1 mg/dL (8.6-10.3) 06/04/19 13:43 Total Bilirubin 0.4 mg/dL (0.3-1.0) 06/04/19 13:43 AST 14 U/L (13-39) 06/04/19 13:43 ALT 10 U/L (7-52) 06/04/19 13:43 Alkaline Phosphatase 37 U/L (34-104) 06/04/19 13:43 Troponin I < 0.01 ng/mL (0.01-0.05) L 06/04/19 13:43 Total Protein 6.7 gm/dL (6.0-8.3) 06/04/19 13:43 Albumin 3.8 gm/dL (4.2-5.5) L 06/04/19 13:43 Globulin 2.9 gm/dL 06/04/19 13:43 Albumin/Globulin Ratio 1.3 (1.0-1.8) 06/04/19 13:43 Triglycerides 268 mg/dL (<150) H 06/04/19 13:43 Cholesterol 147 mg/dL (<200) 06/04/19 13:43 LDL Cholesterol Direct 108 mg/dL (75-193) 06/04/19 13:43 HDL Cholesterol 29 mg/dL (23-92) 06/04/19 13:43 TSH 3.58 uIU/ml (0.34-5.60) 06/04/19 13:43 Urine Source CLEAN C 06/04/19 14:00 Urine Color YELLOW 06/04/19 14:00 Urine Clarity CLEAR (CLEAR) 06/04/19 14:00 Urine pH 6.5 (4.6 - 8.0) 06/04/19 14:00 Ur Specific [place] 1.020 (1.005-1.030) 06/04/19 14:00 Urine Protein NEGATIVE mg/dL (NEGATIVE) 06/04/19 14:00 Urine Glucose (UA) NEGATIVE mg/dL (NEGATIVE) 06/04/19 14:00 Urine Ketones NEGATIVE mg/dL (NEGATIVE) 06/04/19 14:00 Urine Blood NEGATIVE (NEGATIVE) 06/04/19 14:00 Urine Nitrate NEGATIVE (NEGATIVE) 06/04/19 14:00 Urine Bilirubin NEGATIVE (NEGATIVE) 06/04/19 14:00 Urine Urobilinogen 0.2 E.U./dL (0.2 - 1.0) 06/04/19 14:00 Ur Leukocyte Esterase NEGATIVE (NEGATIVE) 06/04/19 14:00 Urine RBC NONE SEEN /hpf (0-5) 06/04/19 14:00 Urine WBC 0-2 /hpf (0-5) 06/04/19 14:00 Ur Epithelial Cells OCCASIONAL /lpf (FEW) 06/04/19 14:00 Amorphous Sediment FEW URATES (NONE SEEN) 06/04/19 14:00 Urine Bacteria FEW /hpf (NONE SEEN) 06/04/19 14:00 Urine Mucus FEW /lpf (FEW) 06/04/19 14:00 Salicylates < 25.0 mg/L (30.0-100.0) L 06/04/19 13:43 Urine Opiates Screen NEGATIVE (NEGATIVE) 06/04/19 14:00 Urine Methadone Screen NEGATIVE (NEGATIVE) 06/04/19 14:00 Acetaminophen < 10.0 ug/mL (10.0-30.0) L 06/04/19 13:43 Ur Barbiturates Screen NEGATIVE (NEGATIVE) 06/04/19 14:00 Valproic Acid 93.9 ug/mL (50.0-100.0) 06/05/19 07:05 Ur Tricyclics Screen NEGATIVE (NEGATIVE) 06/04/19 14:00 Ur Phencyclidine Scrn NEGATIVE (NEGATIVE) 06/04/19 14:00 Amphetamines Screen NEGATIVE (NEGATIVE) 06/04/19 14:00 U Methamphetamines Scrn NEGATIVE (NEGATIVE) 06/04/19 14:00 U Benzodiazepines Scrn NEGATIVE (NEGATIVE) 06/04/19 14:00 U Cocaine Metab Screen NEGATIVE (NEGATIVE) 06/04/19 14:00 U Cannabinoids Screen NEGATIVE (NEGATIVE) 06/04/19 14:00 Ethyl Alcohol < 10 mg/dL (0-10) 06/04/19 13:43 - Physical Exam Vitals and I&O: Vital Signs Temp 97.9 F 06/09/19 06:20 Pulse 53 06/09/19 06:20 Resp 19 06/09/19 06:20 BP 98/57 06/09/19 06:20 Pulse Ox 97 06/09/19 06:20 Intake & Output 06/08/19 06/09/19 06/09/19 18:59 06:59 18:59 Intake Total 1400 480 Balance 1400 480 Intake: Oral 1400 480 Other: # Voids 5 1 # Bowel Movements 1 Active Medications: Current Medications Acetaminophen (Tylenol) 650 mg PO Q4HR PRN PRN Reason: Mild Pain / Temp above 100 Stop: 08/03/19 15:58 Al Hydrox/Mg Hydrox/Simethicone (Maalox) 30 ml PO Q4HR PRN PRN Reason: GI DISTRESS Stop: 08/03/19 15:58 Aspirin (Aspirin Chewable) 81 mg PO DAILY EREN Stop: 08/04/19 08:59 Last Admin: 06/09/19 09:07 Dose: 81 mg Clonazepam (Klonopin) 1 mg PO BID EREN; Protocol Stop: 08/06/19 16:59 Last Admin: 06/09/19 09:07 Dose: 1 mg Divalproex Sodium (Depakote Er) 1,500 mg PO BID EREN; Protocol Stop: 08/04/19 08:59 Last Admin: 06/09/19 09:06 Dose: 1,500 mg Docusate Sodium (Colace) 250 mg PO DAILY EREN Stop: 08/04/19 08:59 Last Admin: 06/09/19 09:06 Dose: 250 mg Cecil Carbonate (Eskalith) 300 mg PO TID EREN; Protocol Stop: 08/07/19 08:59 Last Admin: 06/09/19 09:07 Dose: 300 mg Lorazepam (Ativan) 0.5 mg PO Q4HR PRN; Protocol PRN Reason: Agitation Stop: 08/03/19 16:04 Last Admin: 06/08/19 03:18 Dose: 0.5 mg Magnesium Hydroxide (Milk Of Magnesia) 30 ml PO HS PRN PRN Reason: Constipation Multivitamins/Vitamin C (Theragran) 1 tab PO DAILY EREN Stop: 08/04/19 08:59 Last Admin: 06/09/19 09:07 Dose: 1 tab Quetiapine Fumarate (Seroquel) 200 mg PO TID EREN; Protocol Stop: 08/04/19 08:59 Last Admin: 06/09/19 09:07 Dose: 200 mg Trazodone HCl (Desyrel) 200 mg PO HS EREN; Protocol Stop: 08/04/19 20:59 Last Admin: 06/08/19 20:48 Dose: 200 mg Zolpidem Tartrate (Ambien) 5 mg PO HS PRN PRN Reason: Insomnia Stop: 08/03/19 15:58 Last Admin: 06/04/19 21:59 Dose: 5 mg General: No acute distress HEENT: Atraumatic, PERRLA Neck: Supple, JVD Cardiovascular: Regular rate, Normal S1, Normal S2 Lungs: Clear to auscultation Abdomen: Bowel sounds, Soft Assessment/Plan - Assessment Assessment: 1.HYPOTHYROIDISM. 2.CHRONIC SMOKING. 3.DEMENTIA. 4.PSYCHOSIS - Plan Plan: continue current treatment Nutritional Asmnt/Malnutr-PDOC - Dietary Evaluation Malnutrition Findings (Please click <Entered> for more info): Nutritional Asmnt/Malnutrition Start: 06/08/19 10: 34 Text: Status: Complete Freq: Protocol: Document 06/08/19 10:35 KULWANT (Rec: 06/08/19 10:44 KULWANT [id number]) Nutritional Asmnt/Malnutrition Patient General Information Nutritional Screening Low Risk Diagnosis Psychosis Pertinent Medical Hx/Surgical Hx Hypothyroidism, dementia, psychosis Subjective Information Patient was admitted from [place]. Tolerating current diet order with adequate intake (100% of meals ). Current Diet Order/ Nutrition Support Regular Patient / S.O Not Indicated Pertinent Medications Maalox, Colace, MOM, Theragran Pertinent Labs (06/04) Albumin 3.8, TAG 268 Nutritional Hx/Data Height 1.85 m Height (Calculated Centimeters) 185.4 Current Weight (lbs) 90.718 kg Weight (Calculated Kilograms) 90.7 Weight (Calculated Grams) 10132.5 [place] Body Weight 184 % [place] Body Weight 108 Body Mass Index (BMI) 26.4 Recent Weight Change No Weight Status Overweight GI Symptoms GI Symptoms None Last BM 06/07 x 1 Difficult in: None Food Allergies No Cultural/Ethnic/[place]ru[place] Belief none indicated Usual diet at home unknown Skin Integrity/Comment: [place] 22, dryness Current %PO Good (75-100%) Estimated Nutritional Goals BEE in Kcals: Using Current wt Calories/Kcals/Kg 90.9 kg CBW (22-27 kcal/kg) Kcals Calculated ~2195-9536 kcal/day Protein: Using Current wt Protein g/k.8-1gm/kg Protein Calculated ~70-90 gm/day Fluid: ml ~2398-6874 ml/day (1 ml/kcal) Nutritional Problem No current Nutrition Prob Problem No nutrition diagnosis at this time Intervention/Recommendation Comments 1. Continue regular diet as tolerated by patient. Expected Outcomes/Goals Expected Outcomes/Goals Oral intake >75% of meals, weight stable or trend toward IBW, nutrition related labs WNL F/U LR 06/15
--- NOTE | 2019-06-09 23:48 | Progress Notes ---
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 He did sleep somewhat better last night. He was quiet last night. ASSESSMENT: The patient remains symptomatic, manic appearing, delusional, grandiose, continue to monitor. JOB# [id number]
[2019-06-10] MEDS: Multivitamin Tab PO SCH (08:55)
[2019-06-10] MEDS: Aspirin 81mg Chewable Tab PO SCH (08:55)
--- NOTE | 2019-06-10 14:14 | General Progress Note ---
Subjective - Review of Systems Service Date: 06/10/19 Subjective: resting comfortably no distress Objective - Results Result Diagrams: 06/04/19 13:43 06/04/19 13:43 Recent Labs: Laboratory Last Values WBC 10.3 Th/cmm (4.8-10.8) 06/04/19 13:43 RBC 4.35 Mil/cmm (4.30-5.70) 06/04/19 13:43 Hgb 13.9 gm/dL (12-16) 06/04/19 13:43 Hct 41.1 % (41.0-60) 06/04/19 13:43 MCV 94.5 fl (80-99) 06/04/19 13:43 MCH 31.9 pg (26.0-30.0) H 06/04/19 13:43 MCHC Differential 33.7 pg (28.0-36.0) 06/04/19 13:43 RDW 13.4 % (11.5-20.0) 06/04/19 13:43 Plt Count 364 Th/cmm (150-400) 06/04/19 13:43 MPV 7.2 fl 06/04/19 13:43 Neutrophils % 69.2 % (40.0-80.0) 06/04/19 13:43 Lymphocytes % 23.7 % (20.0-50.0) 06/04/19 13:43 Monocytes % 6.7 % (2.0-10.0) 06/04/19 13:43 Eosinophils % 0.2 % (0.0-5.0) 06/04/19 13:43 Basophils % 0.2 % (0.0-2.0) 06/04/19 13:43 Sodium 136 mEq/L (136-145) 06/04/19 13:43 Potassium 4.1 mEq/L (3.5-5.1) 06/04/19 13:43 Chloride 106 mEq/L (98-107) 06/04/19 13:43 Carbon Dioxide 23.2 mEq/L (21.0-31.0) 06/04/19 13:43 Anion Gap 10.9 (7.0-16.0) 06/04/19 13:43 BUN 16 mg/dL (7-25) 06/04/19 13:43 Creatinine 1.1 mg/dL (0.7-1.3) 06/04/19 13:43 Est GFR ( Amer) > 60.0 ml/min (>90) 06/04/19 13:43 Est GFR (Non-Af Amer) > 60.0 ml/min 06/04/19 13:43 BUN/Creatinine Ratio 14.5 06/04/19 13:43 Glucose 86 mg/dL (70-105) 06/04/19 13:43 Calcium 9.1 mg/dL (8.6-10.3) 06/04/19 13:43 Total Bilirubin 0.4 mg/dL (0.3-1.0) 06/04/19 13:43 AST 14 U/L (13-39) 06/04/19 13:43 ALT 10 U/L (7-52) 06/04/19 13:43 Alkaline Phosphatase 37 U/L (34-104) 06/04/19 13:43 Troponin I < 0.01 ng/mL (0.01-0.05) L 06/04/19 13:43 Total Protein 6.7 gm/dL (6.0-8.3) 06/04/19 13:43 Albumin 3.8 gm/dL (4.2-5.5) L 06/04/19 13:43 Globulin 2.9 gm/dL 06/04/19 13:43 Albumin/Globulin Ratio 1.3 (1.0-1.8) 06/04/19 13:43 Triglycerides 268 mg/dL (<150) H 06/04/19 13:43 Cholesterol 147 mg/dL (<200) 06/04/19 13:43 LDL Cholesterol Direct 108 mg/dL (75-193) 06/04/19 13:43 HDL Cholesterol 29 mg/dL (23-92) 06/04/19 13:43 TSH 3.58 uIU/ml (0.34-5.60) 06/04/19 13:43 Urine Source CLEAN C 06/04/19 14:00 Urine Color YELLOW 06/04/19 14:00 Urine Clarity CLEAR (CLEAR) 06/04/19 14:00 Urine pH 6.5 (4.6 - 8.0) 06/04/19 14:00 Ur Specific [place] 1.020 (1.005-1.030) 06/04/19 14:00 Urine Protein NEGATIVE mg/dL (NEGATIVE) 06/04/19 14:00 Urine Glucose (UA) NEGATIVE mg/dL (NEGATIVE) 06/04/19 14:00 Urine Ketones NEGATIVE mg/dL (NEGATIVE) 06/04/19 14:00 Urine Blood NEGATIVE (NEGATIVE) 06/04/19 14:00 Urine Nitrate NEGATIVE (NEGATIVE) 06/04/19 14:00 Urine Bilirubin NEGATIVE (NEGATIVE) 06/04/19 14:00 Urine Urobilinogen 0.2 E.U./dL (0.2 - 1.0) 06/04/19 14:00 Ur Leukocyte Esterase NEGATIVE (NEGATIVE) 06/04/19 14:00 Urine RBC NONE SEEN /hpf (0-5) 06/04/19 14:00 Urine WBC 0-2 /hpf (0-5) 06/04/19 14:00 Ur Epithelial Cells OCCASIONAL /lpf (FEW) 06/04/19 14:00 Amorphous Sediment FEW URATES (NONE SEEN) 06/04/19 14:00 Urine Bacteria FEW /hpf (NONE SEEN) 06/04/19 14:00 Urine Mucus FEW /lpf (FEW) 06/04/19 14:00 Salicylates < 25.0 mg/L (30.0-100.0) L 06/04/19 13:43 Urine Opiates Screen NEGATIVE (NEGATIVE) 06/04/19 14:00 Urine Methadone Screen NEGATIVE (NEGATIVE) 06/04/19 14:00 Acetaminophen < 10.0 ug/mL (10.0-30.0) L 06/04/19 13:43 Ur Barbiturates Screen NEGATIVE (NEGATIVE) 06/04/19 14:00 Valproic Acid 93.9 ug/mL (50.0-100.0) 06/05/19 07:05 Ur Tricyclics Screen NEGATIVE (NEGATIVE) 06/04/19 14:00 Ur Phencyclidine Scrn NEGATIVE (NEGATIVE) 06/04/19 14:00 Amphetamines Screen NEGATIVE (NEGATIVE) 06/04/19 14:00 U Methamphetamines Scrn NEGATIVE (NEGATIVE) 06/04/19 14:00 U Benzodiazepines Scrn NEGATIVE (NEGATIVE) 06/04/19 14:00 U Cocaine Metab Screen NEGATIVE (NEGATIVE) 06/04/19 14:00 U Cannabinoids Screen NEGATIVE (NEGATIVE) 06/04/19 14:00 Ethyl Alcohol < 10 mg/dL (0-10) 06/04/19 13:43 RPR NONREACTIVE (NONREACTIVE) 06/04/19 13:43 - Physical Exam Vitals and I&O: Vital Signs Temp 98.2 F 06/10/19 14:12 Pulse 75 06/10/19 14:12 Resp 18 06/10/19 14:12 BP 111/63 06/10/19 14:12 Pulse Ox 92 06/10/19 14:12 Intake & Output 06/09/19 06/10/19 06/10/19 18:59 06:59 18:59 Intake Total 1000 480 Balance 1000 480 Intake: Oral 1000 480 Other: # Voids 4 1 # Bowel Movements 1 Active Medications: Current Medications Acetaminophen (Tylenol) 650 mg PO Q4HR PRN PRN Reason: Mild Pain / Temp above 100 Stop: 08/03/19 15:58 Al Hydrox/Mg Hydrox/Simethicone (Maalox) 30 ml PO Q4HR PRN PRN Reason: GI DISTRESS Stop: 08/03/19 15:58 Aspirin (Aspirin Chewable) 81 mg PO DAILY EREN Stop: 08/04/19 08:59 Last Admin: 06/10/19 08:55 Dose: 81 mg Clonazepam (Klonopin) 1 mg PO BID EREN; Protocol Stop: 08/06/19 16:59 Last Admin: 06/10/19 08:55 Dose: 1 mg Divalproex Sodium (Depakote Er) 1,500 mg PO BID EREN; Protocol Stop: 08/04/19 08:59 Last Admin: 06/10/19 08:55 Dose: 1,500 mg Docusate Sodium (Colace) 250 mg PO DAILY EREN Stop: 08/04/19 08:59 Last Admin: 06/10/19 08:55 Dose: 250 mg [place] Carbonate (Eskalith) 300 mg PO TID EREN; Protocol Stop: 08/07/19 08:59 Last Admin: 06/10/19 14:00 Dose: 300 mg Lorazepam (Ativan) 0.5 mg PO Q4HR PRN; Protocol PRN Reason: Agitation Stop: 08/03/19 16:04 Last Admin: 06/09/19 21:11 Dose: 0.5 mg Magnesium Hydroxide (Milk Of Magnesia) 30 ml PO HS PRN PRN Reason: Constipation Multivitamins/Vitamin C (Theragran) 1 tab PO DAILY EREN Stop: 08/04/19 08:59 Last Admin: 06/10/19 08:55 Dose: 1 tab Quetiapine Fumarate 200 mg/ (Quetiapine Fumarate 25 mg) 225 mg PO TID EREN Stop: 08/09/19 13:59 Last Admin: 06/10/19 14:00 Dose: 225 mg Trazodone HCl (Desyrel) 200 mg PO HS EREN; Protocol Stop: 08/04/19 20:59 Last Admin: 06/09/19 21:11 Dose: 200 mg Zolpidem Tartrate (Ambien) 5 mg PO HS PRN PRN Reason: Insomnia Stop: 08/03/19 15:58 Last Admin: 06/09/19 23:00 Dose: 5 mg General: No acute distress HEENT: Atraumatic, PERRLA Neck: Supple, JVD Cardiovascular: Regular rate, Normal S1, Normal S2 Lungs: Clear to auscultation Abdomen: Bowel sounds, Soft Assessment/Plan - Assessment Assessment: 1.HYPOTHYROIDISM. 2.CHRONIC SMOKING. 3.DEMENTIA. 4.PSYCHOSIS - Plan Plan: continue current treatment Nutritional Asmnt/Malnutr-PDOC - Dietary Evaluation Malnutrition Findings (Please click <Entered> for more info): Nutritional Asmnt/Malnutrition Start: 06/08/19 10: 34 Text: Status: Complete Freq: Protocol: Document 06/08/19 10:35 KULWANT (Rec: 06/08/19 10:44 KULWANT MICHAEL- [email or web address]) Nutritional Asmnt/Malnutrition Patient General Information Nutritional Screening Low Risk Diagnosis Psychosis Pertinent Medical Hx/Surgical Hx Hypothyroidism, dementia, psychosis Subjective Information Patient was admitted from [place]. Tolerating current diet order with adequate intake (100% of meals ). Current Diet Order/ Nutrition Support Regular Patient / S.O Not Indicated Pertinent Medications Maalox, Colace, MOM, Theragran Pertinent Labs (06/04) Albumin 3.8, TAG 268 Nutritional Hx/Data Height 1.85 m Height (Calculated Centimeters) 185.4 Current Weight (lbs) 90.718 kg Weight (Calculated Kilograms) 90.7 Weight (Calculated Grams) 04358.5 [place] Body Weight 184 % [place] Body Weight 108 Body Mass Index (BMI) 26.4 Recent Weight Change No Weight Status Overweight GI Symptoms GI Symptoms None Last BM 06/07 x 1 Difficult in: None Food Allergies No Cultural/Ethnic/Lutheran Belief none indicated Usual diet at home unknown Skin Integrity/Comment: [place] 22, dryness Current %PO Good (75-100%) Estimated Nutritional Goals BEE in Kcals: Using Current wt Calories/Kcals/Kg 90.9 kg CBW (22-27 kcal/kg) Kcals Calculated ~9675-3713 kcal/day Protein: Using Current wt Protein g/k.8-1gm/kg Protein Calculated ~70-90 gm/day Fluid: ml ~9434-6509 ml/day (1 ml/kcal) Nutritional Problem No current Nutrition Prob Problem No nutrition diagnosis at this time Intervention/Recommendation Comments 1. Continue regular diet as tolerated by patient. Expected Outcomes/Goals Expected Outcomes/Goals Oral intake >75% of meals, weight stable or trend toward IBW, nutrition related labs WNL F/U LR 06/15
--- NOTE | 2019-06-10 16:26 | Progress Notes ---
DATE: 06/10/2019 The patient is currently in the hospital, poor orientation, rambling, talking nonsense, talking to someone who is not in the room with him, anxious, throwing things down, ongoing psychotic symptoms, manic symptoms, currently on dosing of Seroquel. I will be increasing his dose of Seroquel today. ASSESSMENT: The patient remains manic, still psychotic, delusional, grandiose. [facility]# [id number]
[2019-06-11] MEDS: Aspirin 81mg Chewable Tab PO SCH (09:18)
[2019-06-11] MEDS: Multivitamin Tab PO SCH (09:18)
--- NOTE | 2019-06-11 21:54 | Internal Medicine Prog Note ---
Internal Medicine Subjective - Subjective Service Date: 06/11/19 Patient seen and examined:: without staff (HE IS CONFUSED) Patient is:: awake, verbal, ambulating, talking, confused Per staff patient has:: no adverse event Internal Medicine Objective - Results Result Diagrams: 06/04/19 13:43 06/04/19 13:43 Recent Labs: Laboratory Last Values WBC 10.3 Th/cmm (4.8-10.8) 06/04/19 13:43 RBC 4.35 Mil/cmm (4.30-5.70) 06/04/19 13:43 Hgb 13.9 gm/dL (12-16) 06/04/19 13:43 Hct 41.1 % (41.0-60) 06/04/19 13:43 MCV 94.5 fl (80-99) 06/04/19 13:43 MCH 31.9 pg (26.0-30.0) H 06/04/19 13:43 MCHC Differential 33.7 pg (28.0-36.0) 06/04/19 13:43 RDW 13.4 % (11.5-20.0) 06/04/19 13:43 Plt Count 364 Th/cmm (150-400) 06/04/19 13:43 MPV 7.2 fl 06/04/19 13:43 Neutrophils % 69.2 % (40.0-80.0) 06/04/19 13:43 Lymphocytes % 23.7 % (20.0-50.0) 06/04/19 13:43 Monocytes % 6.7 % (2.0-10.0) 06/04/19 13:43 Eosinophils % 0.2 % (0.0-5.0) 06/04/19 13:43 Basophils % 0.2 % (0.0-2.0) 06/04/19 13:43 Sodium 136 mEq/L (136-145) 06/04/19 13:43 Potassium 4.1 mEq/L (3.5-5.1) 06/04/19 13:43 Chloride 106 mEq/L (98-107) 06/04/19 13:43 Carbon Dioxide 23.2 mEq/L (21.0-31.0) 06/04/19 13:43 Anion Gap 10.9 (7.0-16.0) 06/04/19 13:43 BUN 16 mg/dL (7-25) 06/04/19 13:43 Creatinine 1.1 mg/dL (0.7-1.3) 06/04/19 13:43 Est GFR ( Amer) > 60.0 ml/min (>90) 06/04/19 13:43 Est GFR (Non-Af Amer) > 60.0 ml/min 06/04/19 13:43 BUN/Creatinine Ratio 14.5 06/04/19 13:43 Glucose 86 mg/dL (70-105) 06/04/19 13:43 Calcium 9.1 mg/dL (8.6-10.3) 06/04/19 13:43 Total Bilirubin 0.4 mg/dL (0.3-1.0) 06/04/19 13:43 AST 14 U/L (13-39) 06/04/19 13:43 ALT 10 U/L (7-52) 06/04/19 13:43 Alkaline Phosphatase 37 U/L (34-104) 06/04/19 13:43 Troponin I < 0.01 ng/mL (0.01-0.05) L 06/04/19 13:43 Total Protein 6.7 gm/dL (6.0-8.3) 06/04/19 13:43 Albumin 3.8 gm/dL (4.2-5.5) L 06/04/19 13:43 Globulin 2.9 gm/dL 06/04/19 13:43 Albumin/Globulin Ratio 1.3 (1.0-1.8) 06/04/19 13:43 Triglycerides 268 mg/dL (<150) H 06/04/19 13:43 Cholesterol 147 mg/dL (<200) 06/04/19 13:43 LDL Cholesterol Direct 108 mg/dL (75-193) 06/04/19 13:43 HDL Cholesterol 29 mg/dL (23-92) 06/04/19 13:43 TSH 3.58 uIU/ml (0.34-5.60) 06/04/19 13:43 Urine Source CLEAN C 06/04/19 14:00 Urine Color YELLOW 06/04/19 14:00 Urine Clarity CLEAR (CLEAR) 06/04/19 14:00 Urine pH 6.5 (4.6 - 8.0) 06/04/19 14:00 Ur Specific [place] 1.020 (1.005-1.030) 06/04/19 14:00 Urine Protein NEGATIVE mg/dL (NEGATIVE) 06/04/19 14:00 Urine Glucose (UA) NEGATIVE mg/dL (NEGATIVE) 06/04/19 14:00 Urine Ketones NEGATIVE mg/dL (NEGATIVE) 06/04/19 14:00 Urine Blood NEGATIVE (NEGATIVE) 06/04/19 14:00 Urine Nitrate NEGATIVE (NEGATIVE) 06/04/19 14:00 Urine Bilirubin NEGATIVE (NEGATIVE) 06/04/19 14:00 Urine Urobilinogen 0.2 E.U./dL (0.2 - 1.0) 06/04/19 14:00 Ur Leukocyte Esterase NEGATIVE (NEGATIVE) 06/04/19 14:00 Urine RBC NONE SEEN /hpf (0-5) 06/04/19 14:00 Urine WBC 0-2 /hpf (0-5) 06/04/19 14:00 Ur Epithelial Cells OCCASIONAL /lpf (FEW) 06/04/19 14:00 Amorphous Sediment FEW URATES (NONE SEEN) 06/04/19 14:00 Urine Bacteria FEW /hpf (NONE SEEN) 06/04/19 14:00 Urine Mucus FEW /lpf (FEW) 06/04/19 14:00 Salicylates < 25.0 mg/L (30.0-100.0) L 06/04/19 13:43 Urine Opiates Screen NEGATIVE (NEGATIVE) 06/04/19 14:00 Urine Methadone Screen NEGATIVE (NEGATIVE) 06/04/19 14:00 Acetaminophen < 10.0 ug/mL (10.0-30.0) L 06/04/19 13:43 Ur Barbiturates Screen NEGATIVE (NEGATIVE) 06/04/19 14:00 Valproic Acid 93.9 ug/mL (50.0-100.0) 06/05/19 07:05 Ur Tricyclics Screen NEGATIVE (NEGATIVE) 06/04/19 14:00 Ur Phencyclidine Scrn NEGATIVE (NEGATIVE) 06/04/19 14:00 Amphetamines Screen NEGATIVE (NEGATIVE) 06/04/19 14:00 U Methamphetamines Scrn NEGATIVE (NEGATIVE) 06/04/19 14:00 U Benzodiazepines Scrn NEGATIVE (NEGATIVE) 06/04/19 14:00 U Cocaine Metab Screen NEGATIVE (NEGATIVE) 06/04/19 14:00 U Cannabinoids Screen NEGATIVE (NEGATIVE) 06/04/19 14:00 Ethyl Alcohol < 10 mg/dL (0-10) 06/04/19 13:43 RPR NONREACTIVE (NONREACTIVE) 06/04/19 13:43 - Physical Exam Vitals and I&O: Vital Signs Temp 98.2 F 06/11/19 20:08 Pulse 64 06/11/19 20:08 Resp 20 06/11/19 20:08 BP 123/64 06/11/19 20:08 Pulse Ox 99 06/11/19 20:08 Intake & Output 06/11/19 06/11/19 06/12/19 06:59 18:59 06:59 Intake Total 360 120 Balance 360 120 Intake: Oral 360 120 Other: # Voids 3 3 # Bowel Movements 0 0 Active Medications: Current Medications Acetaminophen (Tylenol) 650 mg PO Q4HR PRN PRN Reason: Mild Pain / Temp above 100 Stop: 08/03/19 15:58 Al Hydrox/Mg Hydrox/Simethicone (Maalox) 30 ml PO Q4HR PRN PRN Reason: GI DISTRESS Stop: 08/03/19 15:58 Aspirin (Aspirin Chewable) 81 mg PO DAILY EREN Stop: 08/04/19 08:59 Last Admin: 06/11/19 09:18 Dose: 81 mg Clonazepam (Klonopin) 1 mg PO BID EREN; Protocol Stop: 08/06/19 16:59 Last Admin: 06/11/19 17:14 Dose: 1 mg Divalproex Sodium (Depakote Er) 1,500 mg PO BID EREN; Protocol Stop: 08/04/19 08:59 Last Admin: 06/11/19 17:14 Dose: 1,500 mg Docusate Sodium (Colace) 250 mg PO DAILY EREN Stop: 08/04/19 08:59 Last Admin: 06/11/19 09:18 Dose: 250 mg [place] Carbonate (Eskalith) 300 mg PO TID EREN; Protocol Stop: 08/07/19 08:59 Last Admin: 06/11/19 20:58 Dose: 300 mg Lorazepam (Ativan) 0.5 mg PO Q4HR PRN; Protocol PRN Reason: Agitation Stop: 08/03/19 16:04 Last Admin: 06/10/19 21:18 Dose: 0.5 mg Magnesium Hydroxide (Milk Of Magnesia) 30 ml PO HS PRN PRN Reason: Constipation Multivitamins/Vitamin C (Theragran) 1 tab PO DAILY EREN Stop: 08/04/19 08:59 Last Admin: 06/11/19 09:18 Dose: 1 tab Quetiapine Fumarate 200 mg/ (Quetiapine Fumarate 50 mg) 250 mg PO TID EREN Stop: 08/10/19 13:59 Last Admin: 06/11/19 20:59 Dose: 250 mg Trazodone HCl (Desyrel) 200 mg PO HS EREN; Protocol Stop: 08/04/19 20:59 Last Admin: 06/11/19 21:01 Dose: 200 mg Zolpidem Tartrate (Ambien) 5 mg PO HS PRN PRN Reason: Insomnia Stop: 08/03/19 15:58 Last Admin: 06/11/19 01:15 Dose: 5 mg General: demented HEENT: NC/AT, PERRLA, EOMI, anicteric sclerae, throat clear Neck: Supple, No JVD, No thyromegaly, +2 carotid pulse wo bruit, No LAD Lungs: CTAB Cardiovascular: RRR, Normal S1, Normal S2, without murmur Abdomen: soft, non-tender, non-distended Extremities: clear Neurological: no change Internal Medicine Assmt/Plan - Assessment Assessment: 1.HYPOTHYROIDISM. 2.CHRONIC SMOKING. 3.DEMENTIA. 4.PSYCHOSIS - Plan Plan: CONTINUE ON CURRENT MEDICATION AND DIET. Nutritional Asmnt/Malnutr-PDOC - Dietary Evaluation Malnutrition Findings (Please click <Entered> for more info): Nutritional Asmnt/Malnutrition Start: 06/08/19 10: 34 Text: Status: Complete Freq: Protocol: Document 06/08/19 10:35 KULWANT (Rec: 06/08/19 10:44 KULWANT RODRIGUEZ- [email or web address]) Nutritional Asmnt/Malnutrition Patient General Information Nutritional Screening Low Risk Diagnosis Psychosis Pertinent Medical Hx/Surgical Hx Hypothyroidism, dementia, psychosis Subjective Information Patient was admitted from [place]. Tolerating current diet order with adequate intake (100% of meals ). Current Diet Order/ Nutrition Support Regular Patient / S.O Not Indicated Pertinent Medications Maalox, Colace, MOM, Theragran Pertinent Labs (06/04) Albumin 3.8, TAG 268 Nutritional Hx/Data Height 1.85 m Height (Calculated Centimeters) 185.4 Current Weight (lbs) 90.718 kg Weight (Calculated Kilograms) 90.7 Weight (Calculated Grams) 82732.5 [place] Body Weight 184 % [place] Body Weight 108 Body Mass Index (BMI) 26.4 Recent Weight Change No Weight Status Overweight GI Symptoms GI Symptoms None Last BM 06/07 x 1 Difficult in: None Food Allergies No Cultural/Ethnic/Buddhist Belief none indicated Usual diet at home unknown Skin Integrity/Comment: [place] 22, dryness Current %PO Good (75-100%) Estimated Nutritional Goals BEE in Kcals: Using Current wt Calories/Kcals/Kg 90.9 kg CBW (22-27 kcal/kg) Kcals Calculated ~6099-0585 kcal/day Protein: Using Current wt Protein g/k.8-1gm/kg Protein Calculated ~70-90 gm/day Fluid: ml ~4387-1208 ml/day (1 ml/kcal) Nutritional Problem No current Nutrition Prob Problem No nutrition diagnosis at this time Intervention/Recommendation Comments 1. Continue regular diet as tolerated by patient. Expected Outcomes/Goals Expected Outcomes/Goals Oral intake >75% of meals, weight stable or trend toward IBW, nutrition related labs WNL F/U LR 06/15
--- NOTE | 2019-06-11 22:07 | Progress Notes ---
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 He is somewhat slower today versus the past couple of days perhaps because he did not sleep much, manic symptoms may also be lessening. PLAN: We will continue dosing of medications. I will continue to increase his dose of Seroquel today. JOB# [id number]
[2019-06-12] MEDS: Aspirin 81mg Chewable Tab PO SCH (08:47)
[2019-06-12] MEDS: Multivitamin Tab PO SCH (08:47)
[2019-06-12] MEDS: QUETIAPINE FUMARATE PO SCH ×2 (14:00→21:10)
--- NOTE | 2019-06-12 20:45 | Internal Medicine Prog Note ---
Internal Medicine Subjective - Subjective Service Date: 06/12/19 Patient seen and examined:: without staff (HE IS CONFUSED) Patient is:: awake, verbal, ambulating, talking, confused Per staff patient has:: no adverse event Internal Medicine Objective - Results Result Diagrams: 06/04/19 13:43 06/04/19 13:43 Recent Labs: Laboratory Last Values WBC 10.3 Th/cmm (4.8-10.8) 06/04/19 13:43 RBC 4.35 Mil/cmm (4.30-5.70) 06/04/19 13:43 Hgb 13.9 gm/dL (12-16) 06/04/19 13:43 Hct 41.1 % (41.0-60) 06/04/19 13:43 MCV 94.5 fl (80-99) 06/04/19 13:43 MCH 31.9 pg (26.0-30.0) H 06/04/19 13:43 MCHC Differential 33.7 pg (28.0-36.0) 06/04/19 13:43 RDW 13.4 % (11.5-20.0) 06/04/19 13:43 Plt Count 364 Th/cmm (150-400) 06/04/19 13:43 MPV 7.2 fl 06/04/19 13:43 Neutrophils % 69.2 % (40.0-80.0) 06/04/19 13:43 Lymphocytes % 23.7 % (20.0-50.0) 06/04/19 13:43 Monocytes % 6.7 % (2.0-10.0) 06/04/19 13:43 Eosinophils % 0.2 % (0.0-5.0) 06/04/19 13:43 Basophils % 0.2 % (0.0-2.0) 06/04/19 13:43 Sodium 136 mEq/L (136-145) 06/04/19 13:43 Potassium 4.1 mEq/L (3.5-5.1) 06/04/19 13:43 Chloride 106 mEq/L (98-107) 06/04/19 13:43 Carbon Dioxide 23.2 mEq/L (21.0-31.0) 06/04/19 13:43 Anion Gap 10.9 (7.0-16.0) 06/04/19 13:43 BUN 16 mg/dL (7-25) 06/04/19 13:43 Creatinine 1.1 mg/dL (0.7-1.3) 06/04/19 13:43 Est GFR ( Amer) > 60.0 ml/min (>90) 06/04/19 13:43 Est GFR (Non-Af Amer) > 60.0 ml/min 06/04/19 13:43 BUN/Creatinine Ratio 14.5 06/04/19 13:43 Glucose 86 mg/dL (70-105) 06/04/19 13:43 Calcium 9.1 mg/dL (8.6-10.3) 06/04/19 13:43 Total Bilirubin 0.4 mg/dL (0.3-1.0) 06/04/19 13:43 AST 14 U/L (13-39) 06/04/19 13:43 ALT 10 U/L (7-52) 06/04/19 13:43 Alkaline Phosphatase 37 U/L (34-104) 06/04/19 13:43 Troponin I < 0.01 ng/mL (0.01-0.05) L 06/04/19 13:43 Total Protein 6.7 gm/dL (6.0-8.3) 06/04/19 13:43 Albumin 3.8 gm/dL (4.2-5.5) L 06/04/19 13:43 Globulin 2.9 gm/dL 06/04/19 13:43 Albumin/Globulin Ratio 1.3 (1.0-1.8) 06/04/19 13:43 Triglycerides 268 mg/dL (<150) H 06/04/19 13:43 Cholesterol 147 mg/dL (<200) 06/04/19 13:43 LDL Cholesterol Direct 108 mg/dL (75-193) 06/04/19 13:43 HDL Cholesterol 29 mg/dL (23-92) 06/04/19 13:43 TSH 3.58 uIU/ml (0.34-5.60) 06/04/19 13:43 Urine Source CLEAN C 06/04/19 14:00 Urine Color YELLOW 06/04/19 14:00 Urine Clarity CLEAR (CLEAR) 06/04/19 14:00 Urine pH 6.5 (4.6 - 8.0) 06/04/19 14:00 Ur Specific [place] 1.020 (1.005-1.030) 06/04/19 14:00 Urine Protein NEGATIVE mg/dL (NEGATIVE) 06/04/19 14:00 Urine Glucose (UA) NEGATIVE mg/dL (NEGATIVE) 06/04/19 14:00 Urine Ketones NEGATIVE mg/dL (NEGATIVE) 06/04/19 14:00 Urine Blood NEGATIVE (NEGATIVE) 06/04/19 14:00 Urine Nitrate NEGATIVE (NEGATIVE) 06/04/19 14:00 Urine Bilirubin NEGATIVE (NEGATIVE) 06/04/19 14:00 Urine Urobilinogen 0.2 E.U./dL (0.2 - 1.0) 06/04/19 14:00 Ur Leukocyte Esterase NEGATIVE (NEGATIVE) 06/04/19 14:00 Urine RBC NONE SEEN /hpf (0-5) 06/04/19 14:00 Urine WBC 0-2 /hpf (0-5) 06/04/19 14:00 Ur Epithelial Cells OCCASIONAL /lpf (FEW) 06/04/19 14:00 Amorphous Sediment FEW URATES (NONE SEEN) 06/04/19 14:00 Urine Bacteria FEW /hpf (NONE SEEN) 06/04/19 14:00 Urine Mucus FEW /lpf (FEW) 06/04/19 14:00 Salicylates < 25.0 mg/L (30.0-100.0) L 06/04/19 13:43 Urine Opiates Screen NEGATIVE (NEGATIVE) 06/04/19 14:00 Urine Methadone Screen NEGATIVE (NEGATIVE) 06/04/19 14:00 Acetaminophen < 10.0 ug/mL (10.0-30.0) L 06/04/19 13:43 Ur Barbiturates Screen NEGATIVE (NEGATIVE) 06/04/19 14:00 Valproic Acid 93.9 ug/mL (50.0-100.0) 06/05/19 07:05 Ur Tricyclics Screen NEGATIVE (NEGATIVE) 06/04/19 14:00 Ur Phencyclidine Scrn NEGATIVE (NEGATIVE) 06/04/19 14:00 Amphetamines Screen NEGATIVE (NEGATIVE) 06/04/19 14:00 U Methamphetamines Scrn NEGATIVE (NEGATIVE) 06/04/19 14:00 U Benzodiazepines Scrn NEGATIVE (NEGATIVE) 06/04/19 14:00 U Cocaine Metab Screen NEGATIVE (NEGATIVE) 06/04/19 14:00 U Cannabinoids Screen NEGATIVE (NEGATIVE) 06/04/19 14:00 Ethyl Alcohol < 10 mg/dL (0-10) 06/04/19 13:43 RPR NONREACTIVE (NONREACTIVE) 06/04/19 13:43 - Physical Exam Vitals and I&O: Vital Signs Temp 97.6 F 06/12/19 20:25 Pulse 68 06/12/19 20:25 Resp 18 06/12/19 20:25 BP 110/66 06/12/19 20:25 Pulse Ox 98 06/12/19 20:25 Intake & Output 06/12/19 06/12/19 06/13/19 06:59 18:59 06:59 Intake Total 120 1200 240 Balance 120 1200 240 Intake: Oral 120 1200 240 Other: # Voids 4 2 # Bowel Movements 0 1 1 Active Medications: Current Medications Acetaminophen (Tylenol) 650 mg PO Q4HR PRN PRN Reason: Mild Pain / Temp above 100 Stop: 08/03/19 15:58 Al Hydrox/Mg Hydrox/Simethicone (Maalox) 30 ml PO Q4HR PRN PRN Reason: GI DISTRESS Stop: 08/03/19 15:58 Aspirin (Aspirin Chewable) 81 mg PO DAILY EREN Stop: 08/04/19 08:59 Last Admin: 06/12/19 08:47 Dose: 81 mg Clonazepam (Klonopin) 1 mg PO BID EREN; Protocol Stop: 08/06/19 16:59 Last Admin: 06/12/19 08:47 Dose: 1 mg Divalproex Sodium (Depakote Er) 1,500 mg PO BID EREN; Protocol Stop: 08/04/19 08:59 Last Admin: 06/12/19 08:45 Dose: 1,500 mg Docusate Sodium (Colace) 250 mg PO DAILY EREN Stop: 08/04/19 08:59 Last Admin: 06/12/19 08:47 Dose: 250 mg [place] Carbonate (Eskalith) 300 mg PO TID EREN; Protocol Stop: 08/07/19 08:59 Last Admin: 06/12/19 14:00 Dose: 300 mg Magnesium Hydroxide (Milk Of Magnesia) 30 ml PO HS PRN PRN Reason: Constipation Multivitamins/Vitamin C (Theragran) 1 tab PO DAILY EREN Stop: 08/04/19 08:59 Last Admin: 06/12/19 08:47 Dose: 1 tab Quetiapine Fumarate (Seroquel) 275 mg PO TID EREN Stop: 08/11/19 13:59 Last Admin: 06/12/19 14:00 Dose: 275 mg Quetiapine Fumarate 200 mg/Quetiapine Fumarate 50 mg/Quetiapine Fumarate 25 mg 275 mg PO TID EREN Stop: 08/11/19 13:59 Last Admin: 06/12/19 14:00 Dose: 275 mg Trazodone HCl (Desyrel) 200 mg PO HS EREN; Protocol Stop: 08/04/19 20:59 Last Admin: 06/11/19 21:01 Dose: 200 mg General: demented HEENT: NC/AT, PERRLA, EOMI, anicteric sclerae, throat clear Neck: Supple, No JVD, No thyromegaly, +2 carotid pulse wo bruit, No LAD Lungs: CTAB Cardiovascular: RRR, Normal S1, Normal S2, without murmur Abdomen: soft, non-tender, non-distended Extremities: clear Neurological: no change Internal Medicine Assmt/Plan - Assessment Assessment: 1.HYPOTHYROIDISM. 2.CHRONIC SMOKING. 3.DEMENTIA. 4.PSYCHOSIS - Plan Plan: CONTINUE ON CURRENT MEDICATION AND DIET. Nutritional Asmnt/Malnutr-PDOC - Dietary Evaluation Malnutrition Findings (Please click <Entered> for more info): Nutritional Asmnt/Malnutrition Start: 06/08/19 10: 34 Text: Status: Complete Freq: Protocol: Document 06/08/19 10:35 KULWANT (Rec: 06/08/19 10:44 KULWANT RODRIGUEZ- [id number]) Nutritional Asmnt/Malnutrition Patient General Information Nutritional Screening Low Risk Diagnosis Psychosis Pertinent Medical Hx/Surgical Hx Hypothyroidism, dementia, psychosis Subjective Information Patient was admitted from [place]. Tolerating current diet order with adequate intake (100% of meals ). Current Diet Order/ Nutrition Support Regular Patient / S.O Not Indicated Pertinent Medications Maalox, Colace, MOM, Theragran Pertinent Labs (06/04) Albumin 3.8, TAG 268 Nutritional Hx/Data Height 1.85 m Height (Calculated Centimeters) 185.4 Current Weight (lbs) 90.718 kg Weight (Calculated Kilograms) 90.7 Weight (Calculated Grams) 77810.5 [place] Body Weight 184 % [place] Body Weight 108 Body Mass Index (BMI) 26.4 Recent Weight Change No Weight Status Overweight GI Symptoms GI Symptoms None Last BM 06/07 x 1 Difficult in: None Food Allergies No Cultural/Ethnic/Yarsanism Belief none indicated Usual diet at home unknown Skin Integrity/Comment: [place] 22, dryness Current %PO Good (75-100%) Estimated Nutritional Goals BEE in Kcals: Using Current wt Calories/Kcals/Kg 90.9 kg CBW (22-27 kcal/kg) Kcals Calculated ~3419-5390 kcal/day Protein: Using Current wt Protein g/k.8-1gm/kg Protein Calculated ~70-90 gm/day Fluid: ml ~2247-0079 ml/day (1 ml/kcal) Nutritional Problem No current Nutrition Prob Problem No nutrition diagnosis at this time Intervention/Recommendation Comments 1. Continue regular diet as tolerated by patient. Expected Outcomes/Goals Expected Outcomes/Goals Oral intake >75% of meals, weight stable or trend toward IBW, nutrition related labs WNL F/U LR 06/15
--- NOTE | 2019-06-12 23:04 | Progress Notes ---
DATE: 06/12/2019 SUBJECTIVE: The patient in the hospital, slept for about 3 hours, still paranoid, talking about being involved with "deep science," still writing a lot, easily agitated, not wanting to be disturbed, rambling, talking absolute nonsense, still writing things on paper that will make no sense. PLAN: We will continue to monitor. I will be increasing his dosing of Seroquel. He remains manic, psychotic, bizarre, grandiose, delusional and irritable. JOB# [id number]
[2019-06-13] MEDS: Multivitamin Tab PO SCH (09:02)
[2019-06-13] MEDS: Aspirin 81mg Chewable Tab PO SCH (09:03)
--- NOTE | 2019-06-13 18:33 | Internal Medicine Prog Note ---
Internal Medicine Subjective - Subjective Service Date: 06/13/19 Patient seen and examined:: without staff (HE IS CONFUSED) Patient is:: awake, verbal, ambulating, talking, confused Per staff patient has:: no adverse event Internal Medicine Objective - Results Result Diagrams: 06/04/19 13:43 06/04/19 13:43 Recent Labs: Laboratory Last Values WBC 10.3 Th/cmm (4.8-10.8) 06/04/19 13:43 RBC 4.35 Mil/cmm (4.30-5.70) 06/04/19 13:43 Hgb 13.9 gm/dL (12-16) 06/04/19 13:43 Hct 41.1 % (41.0-60) 06/04/19 13:43 MCV 94.5 fl (80-99) 06/04/19 13:43 MCH 31.9 pg (26.0-30.0) H 06/04/19 13:43 MCHC Differential 33.7 pg (28.0-36.0) 06/04/19 13:43 RDW 13.4 % (11.5-20.0) 06/04/19 13:43 Plt Count 364 Th/cmm (150-400) 06/04/19 13:43 MPV 7.2 fl 06/04/19 13:43 Neutrophils % 69.2 % (40.0-80.0) 06/04/19 13:43 Lymphocytes % 23.7 % (20.0-50.0) 06/04/19 13:43 Monocytes % 6.7 % (2.0-10.0) 06/04/19 13:43 Eosinophils % 0.2 % (0.0-5.0) 06/04/19 13:43 Basophils % 0.2 % (0.0-2.0) 06/04/19 13:43 Sodium 136 mEq/L (136-145) 06/04/19 13:43 Potassium 4.1 mEq/L (3.5-5.1) 06/04/19 13:43 Chloride 106 mEq/L (98-107) 06/04/19 13:43 Carbon Dioxide 23.2 mEq/L (21.0-31.0) 06/04/19 13:43 Anion Gap 10.9 (7.0-16.0) 06/04/19 13:43 BUN 16 mg/dL (7-25) 06/04/19 13:43 Creatinine 1.1 mg/dL (0.7-1.3) 06/04/19 13:43 Est GFR ( Amer) > 60.0 ml/min (>90) 06/04/19 13:43 Est GFR (Non-Af Amer) > 60.0 ml/min 06/04/19 13:43 BUN/Creatinine Ratio 14.5 06/04/19 13:43 Glucose 86 mg/dL (70-105) 06/04/19 13:43 Calcium 9.1 mg/dL (8.6-10.3) 06/04/19 13:43 Total Bilirubin 0.4 mg/dL (0.3-1.0) 06/04/19 13:43 AST 14 U/L (13-39) 06/04/19 13:43 ALT 10 U/L (7-52) 06/04/19 13:43 Alkaline Phosphatase 37 U/L (34-104) 06/04/19 13:43 Troponin I < 0.01 ng/mL (0.01-0.05) L 06/04/19 13:43 Total Protein 6.7 gm/dL (6.0-8.3) 06/04/19 13:43 Albumin 3.8 gm/dL (4.2-5.5) L 06/04/19 13:43 Globulin 2.9 gm/dL 06/04/19 13:43 Albumin/Globulin Ratio 1.3 (1.0-1.8) 06/04/19 13:43 Triglycerides 268 mg/dL (<150) H 06/04/19 13:43 Cholesterol 147 mg/dL (<200) 06/04/19 13:43 LDL Cholesterol Direct 108 mg/dL (75-193) 06/04/19 13:43 HDL Cholesterol 29 mg/dL (23-92) 06/04/19 13:43 TSH 3.58 uIU/ml (0.34-5.60) 06/04/19 13:43 Urine Source CLEAN C 06/04/19 14:00 Urine Color YELLOW 06/04/19 14:00 Urine Clarity CLEAR (CLEAR) 06/04/19 14:00 Urine pH 6.5 (4.6 - 8.0) 06/04/19 14:00 Ur Specific [place] 1.020 (1.005-1.030) 06/04/19 14:00 Urine Protein NEGATIVE mg/dL (NEGATIVE) 06/04/19 14:00 Urine Glucose (UA) NEGATIVE mg/dL (NEGATIVE) 06/04/19 14:00 Urine Ketones NEGATIVE mg/dL (NEGATIVE) 06/04/19 14:00 Urine Blood NEGATIVE (NEGATIVE) 06/04/19 14:00 Urine Nitrate NEGATIVE (NEGATIVE) 06/04/19 14:00 Urine Bilirubin NEGATIVE (NEGATIVE) 06/04/19 14:00 Urine Urobilinogen 0.2 E.U./dL (0.2 - 1.0) 06/04/19 14:00 Ur Leukocyte Esterase NEGATIVE (NEGATIVE) 06/04/19 14:00 Urine RBC NONE SEEN /hpf (0-5) 06/04/19 14:00 Urine WBC 0-2 /hpf (0-5) 06/04/19 14:00 Ur Epithelial Cells OCCASIONAL /lpf (FEW) 06/04/19 14:00 Amorphous Sediment FEW URATES (NONE SEEN) 06/04/19 14:00 Urine Bacteria FEW /hpf (NONE SEEN) 06/04/19 14:00 Urine Mucus FEW /lpf (FEW) 06/04/19 14:00 Salicylates < 25.0 mg/L (30.0-100.0) L 06/04/19 13:43 Urine Opiates Screen NEGATIVE (NEGATIVE) 06/04/19 14:00 Urine Methadone Screen NEGATIVE (NEGATIVE) 06/04/19 14:00 Acetaminophen < 10.0 ug/mL (10.0-30.0) L 06/04/19 13:43 Ur Barbiturates Screen NEGATIVE (NEGATIVE) 06/04/19 14:00 Valproic Acid 93.9 ug/mL (50.0-100.0) 06/05/19 07:05 Ur Tricyclics Screen NEGATIVE (NEGATIVE) 06/04/19 14:00 Ur Phencyclidine Scrn NEGATIVE (NEGATIVE) 06/04/19 14:00 Amphetamines Screen NEGATIVE (NEGATIVE) 06/04/19 14:00 U Methamphetamines Scrn NEGATIVE (NEGATIVE) 06/04/19 14:00 U Benzodiazepines Scrn NEGATIVE (NEGATIVE) 06/04/19 14:00 U Cocaine Metab Screen NEGATIVE (NEGATIVE) 06/04/19 14:00 U Cannabinoids Screen NEGATIVE (NEGATIVE) 06/04/19 14:00 Ethyl Alcohol < 10 mg/dL (0-10) 06/04/19 13:43 RPR NONREACTIVE (NONREACTIVE) 06/04/19 13:43 - Physical Exam Vitals and I&O: Vital Signs Temp 98.3 F 06/13/19 14:00 Pulse 64 06/13/19 14:00 Resp 18 06/13/19 16:18 BP 116/63 06/13/19 14:00 Pulse Ox 98 06/13/19 14:00 Intake & Output 06/12/19 06/13/19 06/13/19 18:59 06:59 18:59 Intake Total 0822 746 2420 Balance 2821 927 2004 Intake: Oral 5771 168 3591 Other: # Voids 2 4 # Bowel Movements 1 0 1 Active Medications: Current Medications Acetaminophen (Tylenol) 650 mg PO Q4HR PRN PRN Reason: Mild Pain / Temp above 100 Stop: 08/03/19 15:58 Al Hydrox/Mg Hydrox/Simethicone (Maalox) 30 ml PO Q4HR PRN PRN Reason: GI DISTRESS Stop: 08/03/19 15:58 Aspirin (Aspirin Chewable) 81 mg PO DAILY EREN Stop: 08/04/19 08:59 Last Admin: 06/13/19 09:03 Dose: 81 mg Clonazepam (Klonopin) 1 mg PO BID EREN; Protocol Stop: 08/06/19 16:59 Last Admin: 06/13/19 16:34 Dose: 1 mg Divalproex Sodium (Depakote Er) 1,500 mg PO BID EREN; Protocol Stop: 08/04/19 08:59 Last Admin: 06/13/19 16:34 Dose: 1,500 mg Docusate Sodium (Colace) 250 mg PO DAILY EREN Stop: 08/04/19 08:59 Last Admin: 06/13/19 09:03 Dose: 250 mg [place] Carbonate (Eskalith) 300 mg PO TID EREN; Protocol Stop: 08/07/19 08:59 Last Admin: 06/13/19 15:41 Dose: 300 mg Magnesium Hydroxide (Milk Of Magnesia) 30 ml PO HS PRN PRN Reason: Constipation Multivitamins/Vitamin C (Theragran) 1 tab PO DAILY EREN Stop: 08/04/19 08:59 Last Admin: 06/13/19 09:02 Dose: 1 tab Quetiapine Fumarate (Seroquel) 300 mg PO TID EREN Stop: 08/12/19 13:59 Last Admin: 06/13/19 15:41 Dose: 300 mg Trazodone HCl (Desyrel) 200 mg PO HS EREN; Protocol Stop: 08/04/19 20:59 Last Admin: 06/12/19 20:55 Dose: 200 mg General: demented HEENT: NC/AT, PERRLA, EOMI, anicteric sclerae, throat clear Neck: Supple, No JVD, No thyromegaly, +2 carotid pulse wo bruit, No LAD Lungs: CTAB Cardiovascular: RRR, Normal S1, Normal S2, without murmur Abdomen: soft, non-tender, non-distended Extremities: clear Neurological: no change Internal Medicine Assmt/Plan - Assessment Assessment: 1.HYPOTHYROIDISM. 2.CHRONIC SMOKING. 3.DEMENTIA. 4.PSYCHOSIS - Plan Plan: CONTINUE ON CURRENT MEDICATION AND DIET. Nutritional Asmnt/Malnutr-PDOC - Dietary Evaluation Malnutrition Findings (Please click <Entered> for more info): Nutritional Asmnt/Malnutrition Start: 06/08/19 10: 34 Text: Status: Complete Freq: Protocol: Document 06/08/19 10:35 KULWANT (Rec: 06/08/19 10:44 [email or web address] RODRIGUEZ- [email or web address]) Nutritional Asmnt/Malnutrition Patient General Information Nutritional Screening Low Risk Diagnosis Psychosis Pertinent Medical Hx/Surgical Hx Hypothyroidism, dementia, psychosis Subjective Information Patient was admitted from [place]. Tolerating current diet order with adequate intake (100% of meals ). Current Diet Order/ Nutrition Support Regular Patient / S.O Not Indicated Pertinent Medications Maalox, Colace, MOM, Theragran Pertinent Labs (06/04) Albumin 3.8, TAG 268 Nutritional Hx/Data Height 1.85 m Height (Calculated Centimeters) 185.4 Current Weight (lbs) 90.718 kg Weight (Calculated Kilograms) 90.7 Weight (Calculated Grams) 90027.5 [place] Body Weight 184 % [place] Body Weight 108 Body Mass Index (BMI) 26.4 Recent Weight Change No Weight Status Overweight GI Symptoms GI Symptoms None Last BM 8/30 x 1 Difficult in: None Food Allergies No Cultural/Ethnic/Yarsanism Belief none indicated Usual diet at home unknown Skin Integrity/Comment: [place] 22, dryness Current %PO Good (75-100%) Estimated Nutritional Goals BEE in Kcals: Using Current wt Calories/Kcals/Kg 90.9 kg CBW (22-27 kcal/kg) Kcals Calculated ~1025-1703 kcal/day Protein: Using Current wt Protein g/k.8-1gm/kg Protein Calculated ~70-90 gm/day Fluid: ml ~7960-7022 ml/day (1 ml/kcal) Nutritional Problem No current Nutrition Prob Problem No nutrition diagnosis at this time Intervention/Recommendation Comments 1. Continue regular diet as tolerated by patient. Expected Outcomes/Goals Expected Outcomes/Goals Oral intake >75% of meals, weight stable or trend toward IBW, nutrition related labs WNL F/U LR 06/15
--- NOTE | 2019-06-13 21:04 | Progress Notes ---
DATE: 06/13/2019 SUBJECTIVE: The patient is currently in the hospital, still noted to be bizarre, manic appearing, referencing [employer], stating that [employer] to talk to him. The patient notes that he is very wealthy and will give all the doctors millions of dollars, asking me "are you Suraj Coy," still writing, manic, full of energy. I will be increasing his dosing of Seroquel. JOB# [id number]
[2019-06-14] MEDS: Aspirin 81mg Chewable Tab PO SCH (08:27)
[2019-06-14] MEDS: Multivitamin Tab PO SCH (08:27)
--- NOTE | 2019-06-14 22:28 | Internal Medicine Prog Note ---
Internal Medicine Subjective - Subjective Service Date: 06/14/19 Patient seen and examined:: without staff (HE IS CONFUSED) Patient is:: awake, verbal, ambulating, talking, confused Per staff patient has:: no adverse event Internal Medicine Objective - Results Result Diagrams: 06/04/19 13:43 06/04/19 13:43 Recent Labs: Laboratory Last Values WBC 10.3 Th/cmm (4.8-10.8) 06/04/19 13:43 RBC 4.35 Mil/cmm (4.30-5.70) 06/04/19 13:43 Hgb 13.9 gm/dL (12-16) 06/04/19 13:43 Hct 41.1 % (41.0-60) 06/04/19 13:43 MCV 94.5 fl (80-99) 06/04/19 13:43 MCH 31.9 pg (26.0-30.0) H 06/04/19 13:43 MCHC Differential 33.7 pg (28.0-36.0) 06/04/19 13:43 RDW 13.4 % (11.5-20.0) 06/04/19 13:43 Plt Count 364 Th/cmm (150-400) 06/04/19 13:43 MPV 7.2 fl 06/04/19 13:43 Neutrophils % 69.2 % (40.0-80.0) 06/04/19 13:43 Lymphocytes % 23.7 % (20.0-50.0) 06/04/19 13:43 Monocytes % 6.7 % (2.0-10.0) 06/04/19 13:43 Eosinophils % 0.2 % (0.0-5.0) 06/04/19 13:43 Basophils % 0.2 % (0.0-2.0) 06/04/19 13:43 Sodium 136 mEq/L (136-145) 06/04/19 13:43 Potassium 4.1 mEq/L (3.5-5.1) 06/04/19 13:43 Chloride 106 mEq/L (98-107) 06/04/19 13:43 Carbon Dioxide 23.2 mEq/L (21.0-31.0) 06/04/19 13:43 Anion Gap 10.9 (7.0-16.0) 06/04/19 13:43 BUN 16 mg/dL (7-25) 06/04/19 13:43 Creatinine 1.1 mg/dL (0.7-1.3) 06/04/19 13:43 Est GFR ( Amer) > 60.0 ml/min (>90) 06/04/19 13:43 Est GFR (Non-Af Amer) > 60.0 ml/min 06/04/19 13:43 BUN/Creatinine Ratio 14.5 06/04/19 13:43 Glucose 86 mg/dL (70-105) 06/04/19 13:43 Calcium 9.1 mg/dL (8.6-10.3) 06/04/19 13:43 Total Bilirubin 0.4 mg/dL (0.3-1.0) 06/04/19 13:43 AST 14 U/L (13-39) 06/04/19 13:43 ALT 10 U/L (7-52) 06/04/19 13:43 Alkaline Phosphatase 37 U/L (34-104) 06/04/19 13:43 Troponin I < 0.01 ng/mL (0.01-0.05) L 06/04/19 13:43 Total Protein 6.7 gm/dL (6.0-8.3) 06/04/19 13:43 Albumin 3.8 gm/dL (4.2-5.5) L 06/04/19 13:43 Globulin 2.9 gm/dL 06/04/19 13:43 Albumin/Globulin Ratio 1.3 (1.0-1.8) 06/04/19 13:43 Triglycerides 268 mg/dL (<150) H 06/04/19 13:43 Cholesterol 147 mg/dL (<200) 06/04/19 13:43 LDL Cholesterol Direct 108 mg/dL (75-193) 06/04/19 13:43 HDL Cholesterol 29 mg/dL (23-92) 06/04/19 13:43 TSH 3.58 uIU/ml (0.34-5.60) 06/04/19 13:43 Urine Source CLEAN C 06/04/19 14:00 Urine Color YELLOW 06/04/19 14:00 Urine Clarity CLEAR (CLEAR) 06/04/19 14:00 Urine pH 6.5 (4.6 - 8.0) 06/04/19 14:00 Ur Specific [place] 1.020 (1.005-1.030) 06/04/19 14:00 Urine Protein NEGATIVE mg/dL (NEGATIVE) 06/04/19 14:00 Urine Glucose (UA) NEGATIVE mg/dL (NEGATIVE) 06/04/19 14:00 Urine Ketones NEGATIVE mg/dL (NEGATIVE) 06/04/19 14:00 Urine Blood NEGATIVE (NEGATIVE) 06/04/19 14:00 Urine Nitrate NEGATIVE (NEGATIVE) 06/04/19 14:00 Urine Bilirubin NEGATIVE (NEGATIVE) 06/04/19 14:00 Urine Urobilinogen 0.2 E.U./dL (0.2 - 1.0) 06/04/19 14:00 Ur Leukocyte Esterase NEGATIVE (NEGATIVE) 06/04/19 14:00 Urine RBC NONE SEEN /hpf (0-5) 06/04/19 14:00 Urine WBC 0-2 /hpf (0-5) 06/04/19 14:00 Ur Epithelial Cells OCCASIONAL /lpf (FEW) 06/04/19 14:00 Amorphous Sediment FEW URATES (NONE SEEN) 06/04/19 14:00 Urine Bacteria FEW /hpf (NONE SEEN) 06/04/19 14:00 Urine Mucus FEW /lpf (FEW) 06/04/19 14:00 Salicylates < 25.0 mg/L (30.0-100.0) L 06/04/19 13:43 Urine Opiates Screen NEGATIVE (NEGATIVE) 06/04/19 14:00 Urine Methadone Screen NEGATIVE (NEGATIVE) 06/04/19 14:00 Acetaminophen < 10.0 ug/mL (10.0-30.0) L 06/04/19 13:43 Ur Barbiturates Screen NEGATIVE (NEGATIVE) 06/04/19 14:00 Valproic Acid 93.9 ug/mL (50.0-100.0) 06/05/19 07:05 Ur Tricyclics Screen NEGATIVE (NEGATIVE) 06/04/19 14:00 Ur Phencyclidine Scrn NEGATIVE (NEGATIVE) 06/04/19 14:00 Amphetamines Screen NEGATIVE (NEGATIVE) 06/04/19 14:00 U Methamphetamines Scrn NEGATIVE (NEGATIVE) 06/04/19 14:00 U Benzodiazepines Scrn NEGATIVE (NEGATIVE) 06/04/19 14:00 U Cocaine Metab Screen NEGATIVE (NEGATIVE) 06/04/19 14:00 U Cannabinoids Screen NEGATIVE (NEGATIVE) 06/04/19 14:00 Ethyl Alcohol < 10 mg/dL (0-10) 06/04/19 13:43 RPR NONREACTIVE (NONREACTIVE) 06/04/19 13:43 - Physical Exam Vitals and I&O: Vital Signs Temp 98.4 F 06/14/19 20:14 Pulse 66 06/14/19 20:14 Resp 20 06/14/19 20:14 BP 113/71 06/14/19 20:14 Pulse Ox 99 06/14/19 20:14 Intake & Output 06/14/19 06/14/19 06/15/19 06:59 18:59 06:59 Intake Total 1600 480 Balance 1600 480 Intake: Oral 1600 480 Other: # Voids 3 1 # Bowel Movements 0 Stool Characteristics Formed Brown Active Medications: Current Medications Acetaminophen (Tylenol) 650 mg PO Q4HR PRN PRN Reason: Mild Pain / Temp above 100 Stop: 08/03/19 15:58 Al Hydrox/Mg Hydrox/Simethicone (Maalox) 30 ml PO Q4HR PRN PRN Reason: GI DISTRESS Stop: 08/03/19 15:58 Aspirin (Aspirin Chewable) 81 mg PO DAILY EREN Stop: 08/04/19 08:59 Last Admin: 06/14/19 08:27 Dose: 81 mg Clonazepam (Klonopin) 1 mg PO BID EREN; Protocol Stop: 08/06/19 16:59 Last Admin: 06/14/19 17:28 Dose: 1 mg Divalproex Sodium (Depakote Er) 1,500 mg PO BID EREN; Protocol Stop: 08/04/19 08:59 Last Admin: 06/14/19 17:28 Dose: 1,500 mg Docusate Sodium (Colace) 250 mg PO DAILY EREN Stop: 08/04/19 08:59 Last Admin: 06/14/19 08:27 Dose: 250 mg [place] Carbonate (Eskalith) 300 mg PO TID EREN; Protocol Stop: 08/07/19 08:59 Last Admin: 06/14/19 21:04 Dose: 300 mg Lorazepam (Ativan) 0.5 mg PO Q6HR PRN; Protocol PRN Reason: Agitation Stop: 08/12/19 20:19 Last Admin: 06/13/19 22:18 Dose: 0.5 mg Magnesium Hydroxide (Milk Of Magnesia) 30 ml PO HS PRN PRN Reason: Constipation Multivitamins/Vitamin C (Theragran) 1 tab PO DAILY EREN Stop: 08/04/19 08:59 Last Admin: 06/14/19 08:27 Dose: 1 tab Quetiapine Fumarate (Seroquel) 300 mg PO TID EREN Stop: 08/12/19 13:59 Last Admin: 06/14/19 21:04 Dose: 300 mg Trazodone HCl (Desyrel) 200 mg PO HS EREN; Protocol Stop: 08/04/19 20:59 Last Admin: 06/14/19 21:05 Dose: 200 mg General: demented HEENT: NC/AT, PERRLA, EOMI, anicteric sclerae, throat clear Neck: Supple, No JVD, No thyromegaly, +2 carotid pulse wo bruit, No LAD Lungs: CTAB Cardiovascular: RRR, Normal S1, Normal S2, without murmur Abdomen: soft, non-tender, non-distended Extremities: clear Neurological: no change Internal Medicine Assmt/Plan - Assessment Assessment: 1.HYPOTHYROIDISM. 2.CHRONIC SMOKING. 3.DEMENTIA. 4.PSYCHOSIS - Plan Plan: CONTINUE ON CURRENT MEDICATION AND DIET. Nutritional Asmnt/Malnutr-PDOC - Dietary Evaluation Malnutrition Findings (Please click <Entered> for more info): Nutritional Asmnt/Malnutrition Start: 06/08/19 10: 34 Text: Status: Complete Freq: Protocol: Document 06/08/19 10:35 KULWANT (Rec: 06/08/19 10:44 [email or web address] RODRIGUEZ- [id number]) Nutritional Asmnt/Malnutrition Patient General Information Nutritional Screening Low Risk Diagnosis Psychosis Pertinent Medical Hx/Surgical Hx Hypothyroidism, dementia, psychosis Subjective Information Patient was admitted from [place]. Tolerating current diet order with adequate intake (100% of meals ). Current Diet Order/ Nutrition Support Regular Patient / S.O Not Indicated Pertinent Medications Maalox, Colace, MOM, Theragran Pertinent Labs (06/04) Albumin 3.8, TAG 268 Nutritional Hx/Data Height 1.85 m Height (Calculated Centimeters) 185.4 Current Weight (lbs) 90.718 kg Weight (Calculated Kilograms) 90.7 Weight (Calculated Grams) 49117.5 [place] Body Weight 184 % [place] Body Weight 108 Body Mass Index (BMI) 26.4 Recent Weight Change No Weight Status Overweight GI Symptoms GI Symptoms None Last BM 06/07 x 1 Difficult in: None Food Allergies No Cultural/Ethnic/Temple Belief none indicated Usual diet at home unknown Skin Integrity/Comment: [place] 22, dryness Current %PO Good (75-100%) Estimated Nutritional Goals BEE in Kcals: Using Current wt Calories/Kcals/Kg 90.9 kg CBW (22-27 kcal/kg) Kcals Calculated ~2425-5952 kcal/day Protein: Using Current wt Protein g/k.8-1gm/kg Protein Calculated ~70-90 gm/day Fluid: ml ~8281-5430 ml/day (1 ml/kcal) Nutritional Problem No current Nutrition Prob Problem No nutrition diagnosis at this time Intervention/Recommendation Comments 1. Continue regular diet as tolerated by patient. Expected Outcomes/Goals Expected Outcomes/Goals Oral intake >75% of meals, weight stable or trend toward IBW, nutrition related labs WNL F/U LR 06/15
--- NOTE | 2019-06-15 01:58 | Progress Notes ---
DATE: 06/14/2019 SUBJECTIVE: The patient in the hospital, still noted by staff to be in his room, talking to self, grandiose, talking about equations for cocaine. He seems to be slowing down to some extent. He is sleeping right now, but arousable. The patient still talks about delusions, carrying diseases, carrying polio, ongoing manic symptoms, erratic sleep. We will continue dosing of Klonopin and Depakote. We will plan to check a Depakote level. Continue dosing of medications. Titrate accordingly. JOB# [id number]
[2019-06-15] MEDS: Multivitamin Tab PO SCH (09:00)
[2019-06-15] MEDS: Aspirin 81mg Chewable Tab PO SCH (09:00)
--- NOTE | 2019-06-15 11:19 | Internal Medicine Prog Note ---
Internal Medicine Subjective - Subjective Service Date: 06/15/19 Patient seen and examined:: without staff (HE IS DOING WELL) Patient is:: awake, verbal, ambulating, talking, confused Per staff patient has:: no adverse event Internal Medicine Objective - Results Result Diagrams: 06/04/19 13:43 06/04/19 13:43 Recent Labs: Laboratory Last Values WBC 10.3 Th/cmm (4.8-10.8) 06/04/19 13:43 RBC 4.35 Mil/cmm (4.30-5.70) 06/04/19 13:43 Hgb 13.9 gm/dL (12-16) 06/04/19 13:43 Hct 41.1 % (41.0-60) 06/04/19 13:43 MCV 94.5 fl (80-99) 06/04/19 13:43 MCH 31.9 pg (26.0-30.0) H 06/04/19 13:43 MCHC Differential 33.7 pg (28.0-36.0) 06/04/19 13:43 RDW 13.4 % (11.5-20.0) 06/04/19 13:43 Plt Count 364 Th/cmm (150-400) 06/04/19 13:43 MPV 7.2 fl 06/04/19 13:43 Neutrophils % 69.2 % (40.0-80.0) 06/04/19 13:43 Lymphocytes % 23.7 % (20.0-50.0) 06/04/19 13:43 Monocytes % 6.7 % (2.0-10.0) 06/04/19 13:43 Eosinophils % 0.2 % (0.0-5.0) 06/04/19 13:43 Basophils % 0.2 % (0.0-2.0) 06/04/19 13:43 Sodium 136 mEq/L (136-145) 06/04/19 13:43 Potassium 4.1 mEq/L (3.5-5.1) 06/04/19 13:43 Chloride 106 mEq/L (98-107) 06/04/19 13:43 Carbon Dioxide 23.2 mEq/L (21.0-31.0) 06/04/19 13:43 Anion Gap 10.9 (7.0-16.0) 06/04/19 13:43 BUN 16 mg/dL (7-25) 06/04/19 13:43 Creatinine 1.1 mg/dL (0.7-1.3) 06/04/19 13:43 Est GFR ( Amer) > 60.0 ml/min (>90) 06/04/19 13:43 Est GFR (Non-Af Amer) > 60.0 ml/min 06/04/19 13:43 BUN/Creatinine Ratio 14.5 06/04/19 13:43 Glucose 86 mg/dL (70-105) 06/04/19 13:43 Calcium 9.1 mg/dL (8.6-10.3) 06/04/19 13:43 Total Bilirubin 0.4 mg/dL (0.3-1.0) 06/04/19 13:43 AST 14 U/L (13-39) 06/04/19 13:43 ALT 10 U/L (7-52) 06/04/19 13:43 Alkaline Phosphatase 37 U/L (34-104) 06/04/19 13:43 Troponin I < 0.01 ng/mL (0.01-0.05) L 06/04/19 13:43 Total Protein 6.7 gm/dL (6.0-8.3) 06/04/19 13:43 Albumin 3.8 gm/dL (4.2-5.5) L 06/04/19 13:43 Globulin 2.9 gm/dL 06/04/19 13:43 Albumin/Globulin Ratio 1.3 (1.0-1.8) 06/04/19 13:43 Triglycerides 268 mg/dL (<150) H 06/04/19 13:43 Cholesterol 147 mg/dL (<200) 06/04/19 13:43 LDL Cholesterol Direct 108 mg/dL (75-193) 06/04/19 13:43 HDL Cholesterol 29 mg/dL (23-92) 06/04/19 13:43 TSH 3.58 uIU/ml (0.34-5.60) 06/04/19 13:43 Urine Source CLEAN C 06/04/19 14:00 Urine Color YELLOW 06/04/19 14:00 Urine Clarity CLEAR (CLEAR) 06/04/19 14:00 Urine pH 6.5 (4.6 - 8.0) 06/04/19 14:00 Ur Specific [place] 1.020 (1.005-1.030) 06/04/19 14:00 Urine Protein NEGATIVE mg/dL (NEGATIVE) 06/04/19 14:00 Urine Glucose (UA) NEGATIVE mg/dL (NEGATIVE) 06/04/19 14:00 Urine Ketones NEGATIVE mg/dL (NEGATIVE) 06/04/19 14:00 Urine Blood NEGATIVE (NEGATIVE) 06/04/19 14:00 Urine Nitrate NEGATIVE (NEGATIVE) 06/04/19 14:00 Urine Bilirubin NEGATIVE (NEGATIVE) 06/04/19 14:00 Urine Urobilinogen 0.2 E.U./dL (0.2 - 1.0) 06/04/19 14:00 Ur Leukocyte Esterase NEGATIVE (NEGATIVE) 06/04/19 14:00 Urine RBC NONE SEEN /hpf (0-5) 06/04/19 14:00 Urine WBC 0-2 /hpf (0-5) 06/04/19 14:00 Ur Epithelial Cells OCCASIONAL /lpf (FEW) 06/04/19 14:00 Amorphous Sediment FEW URATES (NONE SEEN) 06/04/19 14:00 Urine Bacteria FEW /hpf (NONE SEEN) 06/04/19 14:00 Urine Mucus FEW /lpf (FEW) 06/04/19 14:00 Salicylates < 25.0 mg/L (30.0-100.0) L 06/04/19 13:43 Urine Opiates Screen NEGATIVE (NEGATIVE) 06/04/19 14:00 Urine Methadone Screen NEGATIVE (NEGATIVE) 06/04/19 14:00 Acetaminophen < 10.0 ug/mL (10.0-30.0) L 06/04/19 13:43 Ur Barbiturates Screen NEGATIVE (NEGATIVE) 06/04/19 14:00 Valproic Acid 74.1 ug/mL (50.0-100.0) 06/15/19 08:10 Ur Tricyclics Screen NEGATIVE (NEGATIVE) 06/04/19 14:00 Ur Phencyclidine Scrn NEGATIVE (NEGATIVE) 06/04/19 14:00 Amphetamines Screen NEGATIVE (NEGATIVE) 06/04/19 14:00 U Methamphetamines Scrn NEGATIVE (NEGATIVE) 06/04/19 14:00 U Benzodiazepines Scrn NEGATIVE (NEGATIVE) 06/04/19 14:00 U Cocaine Metab Screen NEGATIVE (NEGATIVE) 06/04/19 14:00 U Cannabinoids Screen NEGATIVE (NEGATIVE) 06/04/19 14:00 Ethyl Alcohol < 10 mg/dL (0-10) 06/04/19 13:43 RPR NONREACTIVE (NONREACTIVE) 06/04/19 13:43 - Physical Exam Vitals and I&O: Vital Signs Temp 98 F 06/15/19 06:34 Pulse 54 06/15/19 06:34 Resp 20 06/15/19 06:34 BP 115/50 06/15/19 06:34 Pulse Ox 99 06/15/19 06:34 Intake & Output 06/14/19 06/15/19 06/15/19 18:59 06:59 18:59 Intake Total 1600 960 Balance 1600 960 Intake: Oral 1600 960 Other: # Voids 3 2 # Bowel Movements 0 Stool Characteristics Formed Brown Active Medications: Current Medications Acetaminophen (Tylenol) 650 mg PO Q4HR PRN PRN Reason: Mild Pain / Temp above 100 Stop: 08/03/19 15:58 Al Hydrox/Mg Hydrox/Simethicone (Maalox) 30 ml PO Q4HR PRN PRN Reason: GI DISTRESS Stop: 08/03/19 15:58 Aspirin (Aspirin Chewable) 81 mg PO DAILY EREN Stop: 08/04/19 08:59 Last Admin: 06/15/19 09:00 Dose: 81 mg Clonazepam (Klonopin) 1 mg PO BID EREN; Protocol Stop: 08/06/19 16:59 Last Admin: 06/15/19 09:01 Dose: 1 mg Divalproex Sodium (Depakote Er) 1,500 mg PO BID EREN; Protocol Stop: 08/04/19 08:59 Last Admin: 06/15/19 09:00 Dose: 1,500 mg Docusate Sodium (Colace) 250 mg PO DAILY EREN Stop: 08/04/19 08:59 Last Admin: 06/15/19 09:00 Dose: 250 mg [place] Carbonate (Eskalith) 300 mg PO TID EREN; Protocol Stop: 08/07/19 08:59 Last Admin: 06/15/19 09:01 Dose: 300 mg Lorazepam (Ativan) 0.5 mg PO Q6HR PRN; Protocol PRN Reason: Agitation Stop: 08/12/19 20:19 Last Admin: 06/15/19 00:10 Dose: 0.5 mg Magnesium Hydroxide (Milk Of Magnesia) 30 ml PO HS PRN PRN Reason: Constipation Multivitamins/Vitamin C (Theragran) 1 tab PO DAILY EREN Stop: 08/04/19 08:59 Last Admin: 06/15/19 09:00 Dose: 1 tab Quetiapine Fumarate (Seroquel) 300 mg PO TID EREN Stop: 08/12/19 13:59 Last Admin: 06/15/19 09:01 Dose: 300 mg Trazodone HCl (Desyrel) 200 mg PO HS EREN; Protocol Stop: 08/04/19 20:59 Last Admin: 06/14/19 21:05 Dose: 200 mg General: demented HEENT: NC/AT, PERRLA, EOMI, anicteric sclerae, throat clear Neck: Supple, No JVD, No thyromegaly, +2 carotid pulse wo bruit, No LAD Lungs: CTAB Cardiovascular: RRR, Normal S1, Normal S2, without murmur Abdomen: soft, non-tender, non-distended Extremities: clear Neurological: no change Internal Medicine Assmt/Plan - Assessment Assessment: 1.HYPOTHYROIDISM. 2.CHRONIC SMOKING. 3.DEMENTIA. 4.PSYCHOSIS - Plan Plan: CONTINUE ON CURRENT MEDICATION AND DIET. Nutritional Asmnt/Malnutr-PDOC - Dietary Evaluation Malnutrition Findings (Please click <Entered> for more info): Nutritional Asmnt/Malnutrition Start: 06/08/19 10: 34 Text: Status: Complete Freq: Protocol: Document 06/08/19 10:35 KULWANT (Rec: 06/08/19 10:44 KULWANT RODRIGUEZ- [id number]) Nutritional Asmnt/Malnutrition Patient General Information Nutritional Screening Low Risk Diagnosis Psychosis Pertinent Medical Hx/Surgical Hx Hypothyroidism, dementia, psychosis Subjective Information Patient was admitted from [place]. Tolerating current diet order with adequate intake (100% of meals ). Current Diet Order/ Nutrition Support Regular Patient / S.O Not Indicated Pertinent Medications Maalox, Colace, MOM, Theragran Pertinent Labs (06/04) Albumin 3.8, TAG 268 Nutritional Hx/Data Height 1.85 m Height (Calculated Centimeters) 185.4 Current Weight (lbs) 90.718 kg Weight (Calculated Kilograms) 90.7 Weight (Calculated Grams) 30463.5 [place] Body Weight 184 % [place] Body Weight 108 Body Mass Index (BMI) 26.4 Recent Weight Change No Weight Status Overweight GI Symptoms GI Symptoms None Last BM 06/07 x 1 Difficult in: None Food Allergies No Cultural/Ethnic/Restorationist Belief none indicated Usual diet at home unknown Skin Integrity/Comment: [place] 22, dryness Current %PO Good (75-100%) Estimated Nutritional Goals BEE in Kcals: Using Current wt Calories/Kcals/Kg 90.9 kg CBW (22-27 kcal/kg) Kcals Calculated ~9741-1759 kcal/day Protein: Using Current wt Protein g/k.8-1gm/kg Protein Calculated ~70-90 gm/day Fluid: ml ~7602-3380 ml/day (1 ml/kcal) Nutritional Problem No current Nutrition Prob Problem No nutrition diagnosis at this time Intervention/Recommendation Comments 1. Continue regular diet as tolerated by patient. Expected Outcomes/Goals Expected Outcomes/Goals Oral intake >75% of meals, weight stable or trend toward IBW, nutrition related labs WNL F/U LR 06/15
--- NOTE | 2019-06-15 17:52 | Progress Notes ---
DATE: 06/15/2019 Case was discussed with staff of the patient, reviewed records. Covering for Dr. Escalante. This 53-year-old male who was admitted on 06/04/2019. The patient apparently was abusing cocaine. He was transferred to [facility] because of increasing agitation and irritability, has been extremely restless, aggressive, striking out towards the staff and peers, was not able to follow staff direction. The patient with a history of seems to be schizoaffective disorder. He has no medical problems. The patient continues to be unpredictable, impulsive, needing redirection. Continues to have poor insight, use of cocaine. Continues to be delusional, manic, and irritable. He is on clonazepam 1 mg twice a day and lithium 300 mg 3 times a day and Seroquel 300 mg 3 times a day. No side effects, no sedation, no nausea, no extrapyramidal symptoms. We will continue to work with the patient in group therapy, milieu therapy, and adjust medication as needed. JOB# [id number]
[2019-06-16] MEDS: Multivitamin Tab PO SCH (09:14)
[2019-06-16] MEDS: Aspirin 81mg Chewable Tab PO SCH (09:14)
--- NOTE | 2019-06-16 18:22 | Internal Medicine Prog Note ---
Internal Medicine Subjective - Subjective Service Date: 06/16/19 Patient seen and examined:: without staff (he is doing well) Patient is:: awake, verbal, ambulating, talking, confused Per staff patient has:: no adverse event Internal Medicine Objective - Results Result Diagrams: 06/04/19 13:43 06/04/19 13:43 Recent Labs: Laboratory Last Values WBC 10.3 Th/cmm (4.8-10.8) 06/04/19 13:43 RBC 4.35 Mil/cmm (4.30-5.70) 06/04/19 13:43 Hgb 13.9 gm/dL (12-16) 06/04/19 13:43 Hct 41.1 % (41.0-60) 06/04/19 13:43 MCV 94.5 fl (80-99) 06/04/19 13:43 MCH 31.9 pg (26.0-30.0) H 06/04/19 13:43 MCHC Differential 33.7 pg (28.0-36.0) 06/04/19 13:43 RDW 13.4 % (11.5-20.0) 06/04/19 13:43 Plt Count 364 Th/cmm (150-400) 06/04/19 13:43 MPV 7.2 fl 06/04/19 13:43 Neutrophils % 69.2 % (40.0-80.0) 06/04/19 13:43 Lymphocytes % 23.7 % (20.0-50.0) 06/04/19 13:43 Monocytes % 6.7 % (2.0-10.0) 06/04/19 13:43 Eosinophils % 0.2 % (0.0-5.0) 06/04/19 13:43 Basophils % 0.2 % (0.0-2.0) 06/04/19 13:43 Sodium 136 mEq/L (136-145) 06/04/19 13:43 Potassium 4.1 mEq/L (3.5-5.1) 06/04/19 13:43 Chloride 106 mEq/L (98-107) 06/04/19 13:43 Carbon Dioxide 23.2 mEq/L (21.0-31.0) 06/04/19 13:43 Anion Gap 10.9 (7.0-16.0) 06/04/19 13:43 BUN 16 mg/dL (7-25) 06/04/19 13:43 Creatinine 1.1 mg/dL (0.7-1.3) 06/04/19 13:43 Est GFR ( Amer) > 60.0 ml/min (>90) 06/04/19 13:43 Est GFR (Non-Af Amer) > 60.0 ml/min 06/04/19 13:43 BUN/Creatinine Ratio 14.5 06/04/19 13:43 Glucose 86 mg/dL (70-105) 06/04/19 13:43 Calcium 9.1 mg/dL (8.6-10.3) 06/04/19 13:43 Total Bilirubin 0.4 mg/dL (0.3-1.0) 06/04/19 13:43 AST 14 U/L (13-39) 06/04/19 13:43 ALT 10 U/L (7-52) 06/04/19 13:43 Alkaline Phosphatase 37 U/L (34-104) 06/04/19 13:43 Troponin I < 0.01 ng/mL (0.01-0.05) L 06/04/19 13:43 Total Protein 6.7 gm/dL (6.0-8.3) 06/04/19 13:43 Albumin 3.8 gm/dL (4.2-5.5) L 06/04/19 13:43 Globulin 2.9 gm/dL 06/04/19 13:43 Albumin/Globulin Ratio 1.3 (1.0-1.8) 06/04/19 13:43 Triglycerides 268 mg/dL (<150) H 06/04/19 13:43 Cholesterol 147 mg/dL (<200) 06/04/19 13:43 LDL Cholesterol Direct 108 mg/dL (75-193) 06/04/19 13:43 HDL Cholesterol 29 mg/dL (23-92) 06/04/19 13:43 TSH 3.58 uIU/ml (0.34-5.60) 06/04/19 13:43 Urine Source CLEAN C 06/04/19 14:00 Urine Color YELLOW 06/04/19 14:00 Urine Clarity CLEAR (CLEAR) 06/04/19 14:00 Urine pH 6.5 (4.6 - 8.0) 06/04/19 14:00 Ur Specific [place] 1.020 (1.005-1.030) 06/04/19 14:00 Urine Protein NEGATIVE mg/dL (NEGATIVE) 06/04/19 14:00 Urine Glucose (UA) NEGATIVE mg/dL (NEGATIVE) 06/04/19 14:00 Urine Ketones NEGATIVE mg/dL (NEGATIVE) 06/04/19 14:00 Urine Blood NEGATIVE (NEGATIVE) 06/04/19 14:00 Urine Nitrate NEGATIVE (NEGATIVE) 06/04/19 14:00 Urine Bilirubin NEGATIVE (NEGATIVE) 06/04/19 14:00 Urine Urobilinogen 0.2 E.U./dL (0.2 - 1.0) 06/04/19 14:00 Ur Leukocyte Esterase NEGATIVE (NEGATIVE) 06/04/19 14:00 Urine RBC NONE SEEN /hpf (0-5) 06/04/19 14:00 Urine WBC 0-2 /hpf (0-5) 06/04/19 14:00 Ur Epithelial Cells OCCASIONAL /lpf (FEW) 06/04/19 14:00 Amorphous Sediment FEW URATES (NONE SEEN) 06/04/19 14:00 Urine Bacteria FEW /hpf (NONE SEEN) 06/04/19 14:00 Urine Mucus FEW /lpf (FEW) 06/04/19 14:00 Salicylates < 25.0 mg/L (30.0-100.0) L 06/04/19 13:43 Urine Opiates Screen NEGATIVE (NEGATIVE) 06/04/19 14:00 Urine Methadone Screen NEGATIVE (NEGATIVE) 06/04/19 14:00 Acetaminophen < 10.0 ug/mL (10.0-30.0) L 06/04/19 13:43 Ur Barbiturates Screen NEGATIVE (NEGATIVE) 06/04/19 14:00 Valproic Acid 74.1 ug/mL (50.0-100.0) 06/15/19 08:10 Ur Tricyclics Screen NEGATIVE (NEGATIVE) 06/04/19 14:00 Ur Phencyclidine Scrn NEGATIVE (NEGATIVE) 06/04/19 14:00 Amphetamines Screen NEGATIVE (NEGATIVE) 06/04/19 14:00 U Methamphetamines Scrn NEGATIVE (NEGATIVE) 06/04/19 14:00 U Benzodiazepines Scrn NEGATIVE (NEGATIVE) 06/04/19 14:00 U Cocaine Metab Screen NEGATIVE (NEGATIVE) 06/04/19 14:00 U Cannabinoids Screen NEGATIVE (NEGATIVE) 06/04/19 14:00 Ethyl Alcohol < 10 mg/dL (0-10) 06/04/19 13:43 RPR NONREACTIVE (NONREACTIVE) 06/04/19 13:43 - Physical Exam Vitals and I&O: Vital Signs Temp 98 F 06/16/19 14:04 Pulse 65 06/16/19 14:04 Resp 20 06/16/19 14:04 BP 109/65 06/16/19 14:04 Pulse Ox 93 06/16/19 14:04 Intake & Output 06/15/19 06/16/19 06/16/19 18:59 06:59 18:59 Intake Total 120 Balance 120 Intake: Oral 120 Other: # Voids 3 3 3 # Bowel Movements 1 1 Active Medications: Current Medications Acetaminophen (Tylenol) 650 mg PO Q4HR PRN PRN Reason: Mild Pain / Temp above 100 Stop: 08/03/19 15:58 Al Hydrox/Mg Hydrox/Simethicone (Maalox) 30 ml PO Q4HR PRN PRN Reason: GI DISTRESS Stop: 08/03/19 15:58 Aspirin (Aspirin Chewable) 81 mg PO DAILY EREN Stop: 08/04/19 08:59 Last Admin: 06/16/19 09:14 Dose: 81 mg Clonazepam (Klonopin) 1 mg PO BID EREN; Protocol Stop: 08/06/19 16:59 Last Admin: 06/16/19 16:47 Dose: 1 mg Divalproex Sodium (Depakote Er) 1,500 mg PO BID EREN; Protocol Stop: 08/04/19 08:59 Last Admin: 06/16/19 16:47 Dose: 1,500 mg Docusate Sodium (Colace) 250 mg PO DAILY EREN Stop: 08/04/19 08:59 Last Admin: 06/16/19 09:14 Dose: 250 mg [place] Carbonate (Eskalith) 300 mg PO TID EREN; Protocol Stop: 08/07/19 08:59 Last Admin: 06/16/19 14:57 Dose: 300 mg Lorazepam (Ativan) 0.5 mg PO Q6HR PRN; Protocol PRN Reason: Agitation Stop: 08/12/19 20:19 Last Admin: 06/15/19 20:05 Dose: 0.5 mg Magnesium Hydroxide (Milk Of Magnesia) 30 ml PO HS PRN PRN Reason: Constipation Multivitamins/Vitamin C (Theragran) 1 tab PO DAILY EREN Stop: 08/04/19 08:59 Last Admin: 06/16/19 09:14 Dose: 1 tab Quetiapine Fumarate (Seroquel) 300 mg PO TID EREN Stop: 08/12/19 13:59 Last Admin: 06/16/19 14:57 Dose: 300 mg Trazodone HCl (Desyrel) 200 mg PO HS EREN; Protocol Stop: 08/04/19 20:59 Last Admin: 06/15/19 20:06 Dose: 200 mg General: demented HEENT: NC/AT, PERRLA, EOMI, anicteric sclerae, throat clear Neck: Supple, No JVD, No thyromegaly, +2 carotid pulse wo bruit, No LAD Lungs: CTAB Cardiovascular: RRR, Normal S1, Normal S2, without murmur Abdomen: soft, non-tender, non-distended Extremities: clear Neurological: no change Internal Medicine Assmt/Plan - Assessment Assessment: 1.HYPOTHYROIDISM. 2.CHRONIC SMOKING. 3.DEMENTIA. 4.PSYCHOSIS - Plan Plan: CONTINUE ON CURRENT MEDICATION AND DIET. Nutritional Asmnt/Malnutr-PDOC - Dietary Evaluation Malnutrition Findings (Please click <Entered> for more info): Nutritional Asmnt/Malnutrition Start: 06/08/19 10: 34 Text: Status: Complete Freq: Protocol: Document 06/08/19 10:35 KULWANT (Rec: 06/08/19 10:44 MMBROOKS RODRIGUEZ- [id number]) Nutritional Asmnt/Malnutrition Patient General Information Nutritional Screening Low Risk Diagnosis Psychosis Pertinent Medical Hx/Surgical Hx Hypothyroidism, dementia, psychosis Subjective Information Patient was admitted from [place]. Tolerating current diet order with adequate intake (100% of meals ). Current Diet Order/ Nutrition Support Regular Patient / S.O Not Indicated Pertinent Medications Maalox, Colace, MOM, Theragran Pertinent Labs (06/04) Albumin 3.8, TAG 268 Nutritional Hx/Data Height 1.85 m Height (Calculated Centimeters) 185.4 Current Weight (lbs) 90.718 kg Weight (Calculated Kilograms) 90.7 Weight (Calculated Grams) 89492.5 [place] Body Weight 184 % [place] Body Weight 108 Body Mass Index (BMI) 26.4 Recent Weight Change No Weight Status Overweight GI Symptoms GI Symptoms None Last BM 06/07 x 1 Difficult in: None Food Allergies No Cultural/Ethnic/Taoist Belief none indicated Usual diet at home unknown Skin Integrity/Comment: [place] 22, dryness Current %PO Good (75-100%) Estimated Nutritional Goals BEE in Kcals: Using Current wt Calories/Kcals/Kg 90.9 kg CBW (22-27 kcal/kg) Kcals Calculated ~2331-9495 kcal/day Protein: Using Current wt Protein g/k.8-1gm/kg Protein Calculated ~70-90 gm/day Fluid: ml ~4181-9169 ml/day (1 ml/kcal) Nutritional Problem No current Nutrition Prob Problem No nutrition diagnosis at this time Intervention/Recommendation Comments 1. Continue regular diet as tolerated by patient. Expected Outcomes/Goals Expected Outcomes/Goals Oral intake >75% of meals, weight stable or trend toward IBW, nutrition related labs WNL F/U LR 06/15
--- NOTE | 2019-06-16 22:38 | Progress Notes ---
DATE: 06/16/2019 SUBJECTIVE: Case was discussed with staff of the patient, reviewed records. The patient has been isolating, came from [place]. He continues to have episodes of agitation, irritability, at times aggressive, restless, and striking out towards staff and peers, unable to follow staff directions. He is sleeping better, eating better. He continues to be delusional. He continues to have poor insight. He is unable to make safe plan for self-care. No side effects with the medication, no sedation, no nausea, and no extrapyramidal symptoms. We will continue to work with the patient in group therapy, milieu therapy, and adjust the medication as needed. JOB# [id number]
[2019-06-17] MEDS: Aspirin 81mg Chewable Tab PO SCH (08:14)
[2019-06-17] MEDS: Multivitamin Tab PO SCH (08:14)
--- NOTE | 2019-06-17 18:14 | Internal Medicine Prog Note ---
Internal Medicine Subjective - Subjective Service Date: 06/17/19 Patient seen and examined:: with staff (HE IS DOING BETTER) Patient is:: awake, verbal, ambulating, talking, confused Per staff patient has:: no adverse event Internal Medicine Objective - Results Result Diagrams: 06/04/19 13:43 06/04/19 13:43 Recent Labs: Laboratory Last Values WBC 10.3 Th/cmm (4.8-10.8) 06/04/19 13:43 RBC 4.35 Mil/cmm (4.30-5.70) 06/04/19 13:43 Hgb 13.9 gm/dL (12-16) 06/04/19 13:43 Hct 41.1 % (41.0-60) 06/04/19 13:43 MCV 94.5 fl (80-99) 06/04/19 13:43 MCH 31.9 pg (26.0-30.0) H 06/04/19 13:43 MCHC Differential 33.7 pg (28.0-36.0) 06/04/19 13:43 RDW 13.4 % (11.5-20.0) 06/04/19 13:43 Plt Count 364 Th/cmm (150-400) 06/04/19 13:43 MPV 7.2 fl 06/04/19 13:43 Neutrophils % 69.2 % (40.0-80.0) 06/04/19 13:43 Lymphocytes % 23.7 % (20.0-50.0) 06/04/19 13:43 Monocytes % 6.7 % (2.0-10.0) 06/04/19 13:43 Eosinophils % 0.2 % (0.0-5.0) 06/04/19 13:43 Basophils % 0.2 % (0.0-2.0) 06/04/19 13:43 Sodium 136 mEq/L (136-145) 06/04/19 13:43 Potassium 4.1 mEq/L (3.5-5.1) 06/04/19 13:43 Chloride 106 mEq/L (98-107) 06/04/19 13:43 Carbon Dioxide 23.2 mEq/L (21.0-31.0) 06/04/19 13:43 Anion Gap 10.9 (7.0-16.0) 06/04/19 13:43 BUN 16 mg/dL (7-25) 06/04/19 13:43 Creatinine 1.1 mg/dL (0.7-1.3) 06/04/19 13:43 Est GFR ( Amer) > 60.0 ml/min (>90) 06/04/19 13:43 Est GFR (Non-Af Amer) > 60.0 ml/min 06/04/19 13:43 BUN/Creatinine Ratio 14.5 06/04/19 13:43 Glucose 86 mg/dL (70-105) 06/04/19 13:43 Calcium 9.1 mg/dL (8.6-10.3) 06/04/19 13:43 Total Bilirubin 0.4 mg/dL (0.3-1.0) 06/04/19 13:43 AST 14 U/L (13-39) 06/04/19 13:43 ALT 10 U/L (7-52) 06/04/19 13:43 Alkaline Phosphatase 37 U/L (34-104) 06/04/19 13:43 Troponin I < 0.01 ng/mL (0.01-0.05) L 06/04/19 13:43 Total Protein 6.7 gm/dL (6.0-8.3) 06/04/19 13:43 Albumin 3.8 gm/dL (4.2-5.5) L 06/04/19 13:43 Globulin 2.9 gm/dL 06/04/19 13:43 Albumin/Globulin Ratio 1.3 (1.0-1.8) 06/04/19 13:43 Triglycerides 268 mg/dL (<150) H 06/04/19 13:43 Cholesterol 147 mg/dL (<200) 06/04/19 13:43 LDL Cholesterol Direct 108 mg/dL (75-193) 06/04/19 13:43 HDL Cholesterol 29 mg/dL (23-92) 06/04/19 13:43 TSH 3.58 uIU/ml (0.34-5.60) 06/04/19 13:43 Urine Source CLEAN C 06/04/19 14:00 Urine Color YELLOW 06/04/19 14:00 Urine Clarity CLEAR (CLEAR) 06/04/19 14:00 Urine pH 6.5 (4.6 - 8.0) 06/04/19 14:00 Ur Specific [place] 1.020 (1.005-1.030) 06/04/19 14:00 Urine Protein NEGATIVE mg/dL (NEGATIVE) 06/04/19 14:00 Urine Glucose (UA) NEGATIVE mg/dL (NEGATIVE) 06/04/19 14:00 Urine Ketones NEGATIVE mg/dL (NEGATIVE) 06/04/19 14:00 Urine Blood NEGATIVE (NEGATIVE) 06/04/19 14:00 Urine Nitrate NEGATIVE (NEGATIVE) 06/04/19 14:00 Urine Bilirubin NEGATIVE (NEGATIVE) 06/04/19 14:00 Urine Urobilinogen 0.2 E.U./dL (0.2 - 1.0) 06/04/19 14:00 Ur Leukocyte Esterase NEGATIVE (NEGATIVE) 06/04/19 14:00 Urine RBC NONE SEEN /hpf (0-5) 06/04/19 14:00 Urine WBC 0-2 /hpf (0-5) 06/04/19 14:00 Ur Epithelial Cells OCCASIONAL /lpf (FEW) 06/04/19 14:00 Amorphous Sediment FEW URATES (NONE SEEN) 06/04/19 14:00 Urine Bacteria FEW /hpf (NONE SEEN) 06/04/19 14:00 Urine Mucus FEW /lpf (FEW) 06/04/19 14:00 Salicylates < 25.0 mg/L (30.0-100.0) L 06/04/19 13:43 Urine Opiates Screen NEGATIVE (NEGATIVE) 06/04/19 14:00 Urine Methadone Screen NEGATIVE (NEGATIVE) 06/04/19 14:00 Acetaminophen < 10.0 ug/mL (10.0-30.0) L 06/04/19 13:43 Ur Barbiturates Screen NEGATIVE (NEGATIVE) 06/04/19 14:00 Valproic Acid 74.1 ug/mL (50.0-100.0) 06/15/19 08:10 Ur Tricyclics Screen NEGATIVE (NEGATIVE) 06/04/19 14:00 Ur Phencyclidine Scrn NEGATIVE (NEGATIVE) 06/04/19 14:00 Amphetamines Screen NEGATIVE (NEGATIVE) 06/04/19 14:00 U Methamphetamines Scrn NEGATIVE (NEGATIVE) 06/04/19 14:00 U Benzodiazepines Scrn NEGATIVE (NEGATIVE) 06/04/19 14:00 U Cocaine Metab Screen NEGATIVE (NEGATIVE) 06/04/19 14:00 U Cannabinoids Screen NEGATIVE (NEGATIVE) 06/04/19 14:00 Ethyl Alcohol < 10 mg/dL (0-10) 06/04/19 13:43 RPR NONREACTIVE (NONREACTIVE) 06/04/19 13:43 - Physical Exam Vitals and I&O: Vital Signs Temp 98.3 F 06/17/19 05:45 Pulse 63 06/17/19 05:45 Resp 20 06/17/19 05:45 BP 119/62 06/17/19 05:45 Pulse Ox 94 06/17/19 05:45 Intake & Output 06/16/19 06/17/19 06/17/19 18:59 06:59 18:59 Intake Total 600 Balance 600 Intake: Oral 600 Other: # Voids 3 2 # Bowel Movements 1 0 Active Medications: Current Medications Acetaminophen (Tylenol) 650 mg PO Q4HR PRN PRN Reason: Mild Pain / Temp above 100 Stop: 08/03/19 15:58 Al Hydrox/Mg Hydrox/Simethicone (Maalox) 30 ml PO Q4HR PRN PRN Reason: GI DISTRESS Stop: 08/03/19 15:58 Aspirin (Aspirin Chewable) 81 mg PO DAILY EREN Stop: 08/04/19 08:59 Last Admin: 06/17/19 08:14 Dose: 81 mg Clonazepam (Klonopin) 1 mg PO BID EREN; Protocol Stop: 08/06/19 16:59 Last Admin: 06/17/19 16:12 Dose: 1 mg Divalproex Sodium (Depakote Er) 1,500 mg PO BID EREN; Protocol Stop: 08/04/19 08:59 Last Admin: 06/17/19 16:12 Dose: 1,500 mg Docusate Sodium (Colace) 250 mg PO DAILY EREN Stop: 08/04/19 08:59 Last Admin: 06/17/19 08:14 Dose: 250 mg [place] Carbonate (Eskalith) 300 mg PO TID EREN; Protocol Stop: 08/07/19 08:59 Last Admin: 06/17/19 13:34 Dose: 300 mg Lorazepam (Ativan) 0.5 mg PO Q6HR PRN; Protocol PRN Reason: Agitation Stop: 08/12/19 20:19 Last Admin: 06/17/19 17:17 Dose: 0.5 mg Magnesium Hydroxide (Milk Of Magnesia) 30 ml PO HS PRN PRN Reason: Constipation Multivitamins/Vitamin C (Theragran) 1 tab PO DAILY EREN Stop: 08/04/19 08:59 Last Admin: 06/17/19 08:14 Dose: 1 tab Quetiapine Fumarate (Seroquel) 300 mg PO TID EREN Stop: 08/12/19 13:59 Last Admin: 06/17/19 13:34 Dose: 300 mg Trazodone HCl (Desyrel) 200 mg PO HS EREN; Protocol Stop: 08/04/19 20:59 Last Admin: 06/16/19 20:54 Dose: 200 mg General: demented HEENT: NC/AT, PERRLA, EOMI, anicteric sclerae, throat clear Neck: Supple, No JVD, No thyromegaly, +2 carotid pulse wo bruit, No LAD Lungs: CTAB Cardiovascular: RRR, Normal S1, Normal S2, without murmur Abdomen: soft, non-tender, non-distended Extremities: clear Neurological: no change Internal Medicine Assmt/Plan - Assessment Assessment: 1.HYPOTHYROIDISM. 2.CHRONIC SMOKING. 3.DEMENTIA. 4.PSYCHOSIS - Plan Plan: CONTINUE ON CURRENT MEDICATION AND DIET. Nutritional Asmnt/Malnutr-PDOC - Dietary Evaluation Malnutrition Findings (Please click <Entered> for more info): Nutritional Asmnt/Malnutrition Start: 06/08/19 10: 34 Text: Status: Complete Freq: Protocol: Document 06/08/19 10:35 KULWANT (Rec: 06/08/19 10:44 MMBROOKS RODRIGUEZ- [email or web address]) Nutritional Asmnt/Malnutrition Patient General Information Nutritional Screening Low Risk Diagnosis Psychosis Pertinent Medical Hx/Surgical Hx Hypothyroidism, dementia, psychosis Subjective Information Patient was admitted from [place]. Tolerating current diet order with adequate intake (100% of meals ). Current Diet Order/ Nutrition Support Regular Patient / S.O Not Indicated Pertinent Medications Maalox, Colace, MOM, Theragran Pertinent Labs (06/04) Albumin 3.8, TAG 268 Nutritional Hx/Data Height 1.85 m Height (Calculated Centimeters) 185.4 Current Weight (lbs) 90.718 kg Weight (Calculated Kilograms) 90.7 Weight (Calculated Grams) 39192.5 [place] Body Weight 184 % [place] Body Weight 108 Body Mass Index (BMI) 26.4 Recent Weight Change No Weight Status Overweight GI Symptoms GI Symptoms None Last BM 06/07 x 1 Difficult in: None Food Allergies No Cultural/Ethnic/Hoahaoism Belief none indicated Usual diet at home unknown Skin Integrity/Comment: [place] 22, dryness Current %PO Good (75-100%) Estimated Nutritional Goals BEE in Kcals: Using Current wt Calories/Kcals/Kg 90.9 kg CBW (22-27 kcal/kg) Kcals Calculated ~8804-0088 kcal/day Protein: Using Current wt Protein g/k.8-1gm/kg Protein Calculated ~70-90 gm/day Fluid: ml ~4649-8143 ml/day (1 ml/kcal) Nutritional Problem No current Nutrition Prob Problem No nutrition diagnosis at this time Intervention/Recommendation Comments 1. Continue regular diet as tolerated by patient. Expected Outcomes/Goals Expected Outcomes/Goals Oral intake >75% of meals, weight stable or trend toward IBW, nutrition related labs WNL F/U LR 06/15
--- NOTE | 2019-06-18 02:46 | Progress Notes ---
DATE: 06/17/2019 SUBJECTIVE: The patient is in the hospital, isolative, coming from [place]. 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 He is calm right now; he seems somewhat calmer in general. Seems the medications are starting to help him calm down, antonieta dissipating. PLAN: We will continue to monitor ongoing symptoms as noted. JOB# [id number]
[2019-06-18] MEDS: Aspirin 81mg Chewable Tab PO SCH (08:23)
[2019-06-18] MEDS: Multivitamin Tab PO SCH (08:23)
--- NOTE | 2019-06-18 22:43 | Internal Medicine Prog Note ---
Internal Medicine Subjective - Subjective Service Date: 06/18/19 Patient seen and examined:: without staff (HE IS DOING WELL) Patient is:: awake, verbal, ambulating, talking, confused Per staff patient has:: no adverse event Internal Medicine Objective - Results Result Diagrams: 06/04/19 13:43 06/04/19 13:43 Recent Labs: Laboratory Last Values WBC 10.3 Th/cmm (4.8-10.8) 06/04/19 13:43 RBC 4.35 Mil/cmm (4.30-5.70) 06/04/19 13:43 Hgb 13.9 gm/dL (12-16) 06/04/19 13:43 Hct 41.1 % (41.0-60) 06/04/19 13:43 MCV 94.5 fl (80-99) 06/04/19 13:43 MCH 31.9 pg (26.0-30.0) H 06/04/19 13:43 MCHC Differential 33.7 pg (28.0-36.0) 06/04/19 13:43 RDW 13.4 % (11.5-20.0) 06/04/19 13:43 Plt Count 364 Th/cmm (150-400) 06/04/19 13:43 MPV 7.2 fl 06/04/19 13:43 Neutrophils % 69.2 % (40.0-80.0) 06/04/19 13:43 Lymphocytes % 23.7 % (20.0-50.0) 06/04/19 13:43 Monocytes % 6.7 % (2.0-10.0) 06/04/19 13:43 Eosinophils % 0.2 % (0.0-5.0) 06/04/19 13:43 Basophils % 0.2 % (0.0-2.0) 06/04/19 13:43 Sodium 136 mEq/L (136-145) 06/04/19 13:43 Potassium 4.1 mEq/L (3.5-5.1) 06/04/19 13:43 Chloride 106 mEq/L (98-107) 06/04/19 13:43 Carbon Dioxide 23.2 mEq/L (21.0-31.0) 06/04/19 13:43 Anion Gap 10.9 (7.0-16.0) 06/04/19 13:43 BUN 16 mg/dL (7-25) 06/04/19 13:43 Creatinine 1.1 mg/dL (0.7-1.3) 06/04/19 13:43 Est GFR ( Amer) > 60.0 ml/min (>90) 06/04/19 13:43 Est GFR (Non-Af Amer) > 60.0 ml/min 06/04/19 13:43 BUN/Creatinine Ratio 14.5 06/04/19 13:43 Glucose 86 mg/dL (70-105) 06/04/19 13:43 Calcium 9.1 mg/dL (8.6-10.3) 06/04/19 13:43 Total Bilirubin 0.4 mg/dL (0.3-1.0) 06/04/19 13:43 AST 14 U/L (13-39) 06/04/19 13:43 ALT 10 U/L (7-52) 06/04/19 13:43 Alkaline Phosphatase 37 U/L (34-104) 06/04/19 13:43 Troponin I < 0.01 ng/mL (0.01-0.05) L 06/04/19 13:43 Total Protein 6.7 gm/dL (6.0-8.3) 06/04/19 13:43 Albumin 3.8 gm/dL (4.2-5.5) L 06/04/19 13:43 Globulin 2.9 gm/dL 06/04/19 13:43 Albumin/Globulin Ratio 1.3 (1.0-1.8) 06/04/19 13:43 Triglycerides 268 mg/dL (<150) H 06/04/19 13:43 Cholesterol 147 mg/dL (<200) 06/04/19 13:43 LDL Cholesterol Direct 108 mg/dL (75-193) 06/04/19 13:43 HDL Cholesterol 29 mg/dL (23-92) 06/04/19 13:43 TSH 3.58 uIU/ml (0.34-5.60) 06/04/19 13:43 Urine Source CLEAN C 06/04/19 14:00 Urine Color YELLOW 06/04/19 14:00 Urine Clarity CLEAR (CLEAR) 06/04/19 14:00 Urine pH 6.5 (4.6 - 8.0) 06/04/19 14:00 Ur Specific [place] 1.020 (1.005-1.030) 06/04/19 14:00 Urine Protein NEGATIVE mg/dL (NEGATIVE) 06/04/19 14:00 Urine Glucose (UA) NEGATIVE mg/dL (NEGATIVE) 06/04/19 14:00 Urine Ketones NEGATIVE mg/dL (NEGATIVE) 06/04/19 14:00 Urine Blood NEGATIVE (NEGATIVE) 06/04/19 14:00 Urine Nitrate NEGATIVE (NEGATIVE) 06/04/19 14:00 Urine Bilirubin NEGATIVE (NEGATIVE) 06/04/19 14:00 Urine Urobilinogen 0.2 E.U./dL (0.2 - 1.0) 06/04/19 14:00 Ur Leukocyte Esterase NEGATIVE (NEGATIVE) 06/04/19 14:00 Urine RBC NONE SEEN /hpf (0-5) 06/04/19 14:00 Urine WBC 0-2 /hpf (0-5) 06/04/19 14:00 Ur Epithelial Cells OCCASIONAL /lpf (FEW) 06/04/19 14:00 Amorphous Sediment FEW URATES (NONE SEEN) 06/04/19 14:00 Urine Bacteria FEW /hpf (NONE SEEN) 06/04/19 14:00 Urine Mucus FEW /lpf (FEW) 06/04/19 14:00 Salicylates < 25.0 mg/L (30.0-100.0) L 06/04/19 13:43 Urine Opiates Screen NEGATIVE (NEGATIVE) 06/04/19 14:00 Urine Methadone Screen NEGATIVE (NEGATIVE) 06/04/19 14:00 Acetaminophen < 10.0 ug/mL (10.0-30.0) L 06/04/19 13:43 Ur Barbiturates Screen NEGATIVE (NEGATIVE) 06/04/19 14:00 Valproic Acid 74.1 ug/mL (50.0-100.0) 06/15/19 08:10 Ur Tricyclics Screen NEGATIVE (NEGATIVE) 06/04/19 14:00 Ur Phencyclidine Scrn NEGATIVE (NEGATIVE) 06/04/19 14:00 Amphetamines Screen NEGATIVE (NEGATIVE) 06/04/19 14:00 U Methamphetamines Scrn NEGATIVE (NEGATIVE) 06/04/19 14:00 U Benzodiazepines Scrn NEGATIVE (NEGATIVE) 06/04/19 14:00 U Cocaine Metab Screen NEGATIVE (NEGATIVE) 06/04/19 14:00 U Cannabinoids Screen NEGATIVE (NEGATIVE) 06/04/19 14:00 Ethyl Alcohol < 10 mg/dL (0-10) 06/04/19 13:43 RPR NONREACTIVE (NONREACTIVE) 06/04/19 13:43 - Physical Exam Vitals and I&O: Vital Signs Temp 97.6 F 06/18/19 20:05 Pulse 60 06/18/19 20:05 Resp 20 06/18/19 20:05 BP 134/74 06/18/19 20:05 Pulse Ox 98 06/18/19 20:05 Intake & Output 06/18/19 06/18/19 06/19/19 06:59 18:59 06:59 Intake Total 2790 1000 120 Balance 2790 1000 120 Intake: Oral 2790 1000 120 Other: # Voids 1 4 3 # Bowel Movements 1 1 0 Active Medications: Current Medications Acetaminophen (Tylenol) 650 mg PO Q4HR PRN PRN Reason: Mild Pain / Temp above 100 Stop: 08/03/19 15:58 Al Hydrox/Mg Hydrox/Simethicone (Maalox) 30 ml PO Q4HR PRN PRN Reason: GI DISTRESS Stop: 08/03/19 15:58 Aspirin (Aspirin Chewable) 81 mg PO DAILY EREN Stop: 08/04/19 08:59 Last Admin: 06/18/19 08:23 Dose: 81 mg Clonazepam (Klonopin) 1 mg PO BID EREN; Protocol Stop: 08/06/19 16:59 Last Admin: 06/18/19 16:28 Dose: 1 mg Divalproex Sodium (Depakote Er) 1,500 mg PO BID EREN; Protocol Stop: 08/04/19 08:59 Last Admin: 06/18/19 16:28 Dose: 1,500 mg Docusate Sodium (Colace) 250 mg PO DAILY EREN Stop: 08/04/19 08:59 Last Admin: 06/18/19 08:23 Dose: 250 mg [place] Carbonate (Eskalith) 300 mg PO TID EREN; Protocol Stop: 08/07/19 08:59 Last Admin: 06/18/19 20:45 Dose: 300 mg Lorazepam (Ativan) 0.5 mg PO Q6HR PRN; Protocol PRN Reason: Agitation Stop: 08/12/19 20:19 Last Admin: 06/18/19 08:41 Dose: 0.5 mg Magnesium Hydroxide (Milk Of Magnesia) 30 ml PO HS PRN PRN Reason: Constipation Multivitamins/Vitamin C (Theragran) 1 tab PO DAILY EREN Stop: 08/04/19 08:59 Last Admin: 06/18/19 08:23 Dose: 1 tab Quetiapine Fumarate (Seroquel) 300 mg PO TID EREN Stop: 08/12/19 13:59 Last Admin: 06/18/19 20:45 Dose: 300 mg Trazodone HCl (Desyrel) 200 mg PO HS EREN; Protocol Stop: 08/04/19 20:59 Last Admin: 06/18/19 20:45 Dose: 200 mg General: demented HEENT: NC/AT, PERRLA, EOMI, anicteric sclerae, throat clear Neck: Supple, No JVD, No thyromegaly, +2 carotid pulse wo bruit, No LAD Lungs: CTAB Cardiovascular: RRR, Normal S1, Normal S2, without murmur Abdomen: soft, non-tender, non-distended Extremities: clear Neurological: no change Internal Medicine Assmt/Plan - Assessment Assessment: 1.HYPOTHYROIDISM. 2.CHRONIC SMOKING. 3.DEMENTIA. 4.PSYCHOSIS - Plan Plan: CONTINUE ON CURRENT MEDICATION AND DIET. Nutritional Asmnt/Malnutr-PDOC - Dietary Evaluation Malnutrition Findings (Please click <Entered> for more info): Nutritional Asmnt/Malnutrition Start: 06/08/19 10: 34 Text: Status: Complete Freq: Protocol: Document 06/08/19 10:35 KULWANT (Rec: 06/08/19 10:44 KULWANT RODRIGUEZ- [id number]) Nutritional Asmnt/Malnutrition Patient General Information Nutritional Screening Low Risk Diagnosis Psychosis Pertinent Medical Hx/Surgical Hx Hypothyroidism, dementia, psychosis Subjective Information Patient was admitted from [place]. Tolerating current diet order with adequate intake (100% of meals ). Current Diet Order/ Nutrition Support Regular Patient / S.O Not Indicated Pertinent Medications Maalox, Colace, MOM, Theragran Pertinent Labs (06/04) Albumin 3.8, TAG 268 Nutritional Hx/Data Height 1.85 m Height (Calculated Centimeters) 185.4 Current Weight (lbs) 90.718 kg Weight (Calculated Kilograms) 90.7 Weight (Calculated Grams) 52879.5 [place] Body Weight 184 % [place] Body Weight 108 Body Mass Index (BMI) 26.4 Recent Weight Change No Weight Status Overweight GI Symptoms GI Symptoms None Last BM 06/07 x 1 Difficult in: None Food Allergies No Cultural/Ethnic/Adventist Belief none indicated Usual diet at home unknown Skin Integrity/Comment: [place] 22, dryness Current %PO Good (75-100%) Estimated Nutritional Goals BEE in Kcals: Using Current wt Calories/Kcals/Kg 90.9 kg CBW (22-27 kcal/kg) Kcals Calculated ~5835-5479 kcal/day Protein: Using Current wt Protein g/k.8-1gm/kg Protein Calculated ~70-90 gm/day Fluid: ml ~2771-0459 ml/day (1 ml/kcal) Nutritional Problem No current Nutrition Prob Problem No nutrition diagnosis at this time Intervention/Recommendation Comments 1. Continue regular diet as tolerated by patient. Expected Outcomes/Goals Expected Outcomes/Goals Oral intake >75% of meals, weight stable or trend toward IBW, nutrition related labs WNL F/U LR 06/15
--- NOTE | 2019-06-18 23:42 | Progress Notes ---
DATE: 06/18/[address] Escalante. Case was discussed with staff of the patient, reviewed records. The patient continues to be restless, at times, striking at staff. Continues to be irritable, easily agitated, grandiose, making nonsensical statements, unable to make safe plan for self-care. Sleeping better, eating better. No side effects of the medication, no sedation, no nausea, no extrapyramidal symptoms. His lab work showed low MCH. Her CBC within normal range. Chemistry panel was low albumin and he has high triglyceride, the rest of lipid panel within normal range. Urinalysis within normal range. RPR is nonreactive. Depakote level 93.9 which is within acceptable therapeutic range. I will continue outpatient group therapy, milieu therapy, and adjust medication as needed. JOB# [id number]
[2019-06-19] MEDS: Aspirin 81mg Chewable Tab PO SCH (08:16)
[2019-06-19] MEDS: Multivitamin Tab PO SCH (08:16)
--- NOTE | 2019-06-19 13:06 | Progress Notes ---
DATE: Case was discussed with staff of the patient, reviewed records. The patient continues to be unpredictable, impulsive, needing redirection. Sleeping well, eating well. No suicidal ideation, no homicidal ideation, no paranoia, no side effects. Working on discharge plan as well, still unpredictable, impulsive at times, striking at staff and will continue outpatient group therapy, milieu therapy, and adjust medications as needed. JOB# [id number]
--- NOTE | 2019-06-19 19:56 | Internal Medicine Prog Note ---
Internal Medicine Subjective - Subjective Service Date: 06/19/19 Patient seen and examined:: without staff (HE IS DOING WELL) Patient is:: awake, verbal, ambulating, talking, confused Per staff patient has:: no adverse event Internal Medicine Objective - Results Result Diagrams: 06/04/19 13:43 06/04/19 13:43 Recent Labs: Laboratory Last Values WBC 10.3 Th/cmm (4.8-10.8) 06/04/19 13:43 RBC 4.35 Mil/cmm (4.30-5.70) 06/04/19 13:43 Hgb 13.9 gm/dL (12-16) 06/04/19 13:43 Hct 41.1 % (41.0-60) 06/04/19 13:43 MCV 94.5 fl (80-99) 06/04/19 13:43 MCH 31.9 pg (26.0-30.0) H 06/04/19 13:43 MCHC Differential 33.7 pg (28.0-36.0) 06/04/19 13:43 RDW 13.4 % (11.5-20.0) 06/04/19 13:43 Plt Count 364 Th/cmm (150-400) 06/04/19 13:43 MPV 7.2 fl 06/04/19 13:43 Neutrophils % 69.2 % (40.0-80.0) 06/04/19 13:43 Lymphocytes % 23.7 % (20.0-50.0) 06/04/19 13:43 Monocytes % 6.7 % (2.0-10.0) 06/04/19 13:43 Eosinophils % 0.2 % (0.0-5.0) 06/04/19 13:43 Basophils % 0.2 % (0.0-2.0) 06/04/19 13:43 Sodium 136 mEq/L (136-145) 06/04/19 13:43 Potassium 4.1 mEq/L (3.5-5.1) 06/04/19 13:43 Chloride 106 mEq/L (98-107) 06/04/19 13:43 Carbon Dioxide 23.2 mEq/L (21.0-31.0) 06/04/19 13:43 Anion Gap 10.9 (7.0-16.0) 06/04/19 13:43 BUN 16 mg/dL (7-25) 06/04/19 13:43 Creatinine 1.1 mg/dL (0.7-1.3) 06/04/19 13:43 Est GFR ( Amer) > 60.0 ml/min (>90) 06/04/19 13:43 Est GFR (Non-Af Amer) > 60.0 ml/min 06/04/19 13:43 BUN/Creatinine Ratio 14.5 06/04/19 13:43 Glucose 86 mg/dL (70-105) 06/04/19 13:43 Calcium 9.1 mg/dL (8.6-10.3) 06/04/19 13:43 Total Bilirubin 0.4 mg/dL (0.3-1.0) 06/04/19 13:43 AST 14 U/L (13-39) 06/04/19 13:43 ALT 10 U/L (7-52) 06/04/19 13:43 Alkaline Phosphatase 37 U/L (34-104) 06/04/19 13:43 Troponin I < 0.01 ng/mL (0.01-0.05) L 06/04/19 13:43 Total Protein 6.7 gm/dL (6.0-8.3) 06/04/19 13:43 Albumin 3.8 gm/dL (4.2-5.5) L 06/04/19 13:43 Globulin 2.9 gm/dL 06/04/19 13:43 Albumin/Globulin Ratio 1.3 (1.0-1.8) 06/04/19 13:43 Triglycerides 268 mg/dL (<150) H 06/04/19 13:43 Cholesterol 147 mg/dL (<200) 06/04/19 13:43 LDL Cholesterol Direct 108 mg/dL (75-193) 06/04/19 13:43 HDL Cholesterol 29 mg/dL (23-92) 06/04/19 13:43 TSH 3.58 uIU/ml (0.34-5.60) 06/04/19 13:43 Urine Source CLEAN C 06/04/19 14:00 Urine Color YELLOW 06/04/19 14:00 Urine Clarity CLEAR (CLEAR) 06/04/19 14:00 Urine pH 6.5 (4.6 - 8.0) 06/04/19 14:00 Ur Specific [place] 1.020 (1.005-1.030) 06/04/19 14:00 Urine Protein NEGATIVE mg/dL (NEGATIVE) 06/04/19 14:00 Urine Glucose (UA) NEGATIVE mg/dL (NEGATIVE) 06/04/19 14:00 Urine Ketones NEGATIVE mg/dL (NEGATIVE) 06/04/19 14:00 Urine Blood NEGATIVE (NEGATIVE) 06/04/19 14:00 Urine Nitrate NEGATIVE (NEGATIVE) 06/04/19 14:00 Urine Bilirubin NEGATIVE (NEGATIVE) 06/04/19 14:00 Urine Urobilinogen 0.2 E.U./dL (0.2 - 1.0) 06/04/19 14:00 Ur Leukocyte Esterase NEGATIVE (NEGATIVE) 06/04/19 14:00 Urine RBC NONE SEEN /hpf (0-5) 06/04/19 14:00 Urine WBC 0-2 /hpf (0-5) 06/04/19 14:00 Ur Epithelial Cells OCCASIONAL /lpf (FEW) 06/04/19 14:00 Amorphous Sediment FEW URATES (NONE SEEN) 06/04/19 14:00 Urine Bacteria FEW /hpf (NONE SEEN) 06/04/19 14:00 Urine Mucus FEW /lpf (FEW) 06/04/19 14:00 Salicylates < 25.0 mg/L (30.0-100.0) L 06/04/19 13:43 Urine Opiates Screen NEGATIVE (NEGATIVE) 06/04/19 14:00 Urine Methadone Screen NEGATIVE (NEGATIVE) 06/04/19 14:00 Acetaminophen < 10.0 ug/mL (10.0-30.0) L 06/04/19 13:43 Ur Barbiturates Screen NEGATIVE (NEGATIVE) 06/04/19 14:00 Valproic Acid 74.1 ug/mL (50.0-100.0) 06/15/19 08:10 Ur Tricyclics Screen NEGATIVE (NEGATIVE) 06/04/19 14:00 Ur Phencyclidine Scrn NEGATIVE (NEGATIVE) 06/04/19 14:00 Amphetamines Screen NEGATIVE (NEGATIVE) 06/04/19 14:00 U Methamphetamines Scrn NEGATIVE (NEGATIVE) 06/04/19 14:00 U Benzodiazepines Scrn NEGATIVE (NEGATIVE) 06/04/19 14:00 U Cocaine Metab Screen NEGATIVE (NEGATIVE) 06/04/19 14:00 U Cannabinoids Screen NEGATIVE (NEGATIVE) 06/04/19 14:00 Ethyl Alcohol < 10 mg/dL (0-10) 06/04/19 13:43 RPR NONREACTIVE (NONREACTIVE) 06/04/19 13:43 - Physical Exam Vitals and I&O: Vital Signs Temp 97.5 F 06/19/19 14:09 Pulse 76 06/19/19 14:09 Resp 20 06/19/19 14:09 BP 125/76 06/19/19 14:09 Pulse Ox 96 06/19/19 14:09 Intake & Output 06/19/19 06/19/19 06/20/19 06:59 18:59 06:59 Intake Total 120 Balance 120 Intake: Oral 120 Other: # Voids 3 2 # Bowel Movements 0 1 Active Medications: Current Medications Acetaminophen (Tylenol) 650 mg PO Q4HR PRN PRN Reason: Mild Pain / Temp above 100 Stop: 08/03/19 15:58 Last Admin: 06/19/19 13:26 Dose: 650 mg Al Hydrox/Mg Hydrox/Simethicone (Maalox) 30 ml PO Q4HR PRN PRN Reason: GI DISTRESS Stop: 08/03/19 15:58 Aspirin (Aspirin Chewable) 81 mg PO DAILY EREN Stop: 08/04/19 08:59 Last Admin: 06/19/19 08:16 Dose: 81 mg Clonazepam (Klonopin) 1 mg PO BID EREN; Protocol Stop: 08/06/19 16:59 Last Admin: 06/19/19 17:31 Dose: 1 mg Divalproex Sodium (Depakote Er) 1,500 mg PO BID EREN; Protocol Stop: 08/04/19 08:59 Last Admin: 06/19/19 17:31 Dose: 1,500 mg Docusate Sodium (Colace) 250 mg PO DAILY EREN Stop: 08/04/19 08:59 Last Admin: 06/19/19 08:16 Dose: 250 mg [place] Carbonate (Eskalith) 300 mg PO TID EREN; Protocol Stop: 08/07/19 08:59 Last Admin: 06/19/19 13:27 Dose: 300 mg Lorazepam (Ativan) 0.5 mg PO Q6HR PRN; Protocol PRN Reason: Agitation Stop: 08/12/19 20:19 Last Admin: 06/18/19 08:41 Dose: 0.5 mg Magnesium Hydroxide (Milk Of Magnesia) 30 ml PO HS PRN PRN Reason: Constipation Multivitamins/Vitamin C (Theragran) 1 tab PO DAILY EREN Stop: 08/04/19 08:59 Last Admin: 06/19/19 08:16 Dose: 1 tab Quetiapine Fumarate (Seroquel) 300 mg PO TID EREN Stop: 08/12/19 13:59 Last Admin: 06/19/19 13:28 Dose: 300 mg Trazodone HCl (Desyrel) 200 mg PO HS EREN; Protocol Stop: 08/04/19 20:59 Last Admin: 06/18/19 20:45 Dose: 200 mg General: demented HEENT: NC/AT, PERRLA, EOMI, anicteric sclerae, throat clear Neck: Supple, No JVD, No thyromegaly, +2 carotid pulse wo bruit, No LAD Lungs: CTAB Cardiovascular: RRR, Normal S1, Normal S2, without murmur Abdomen: soft, non-tender, non-distended Extremities: clear Neurological: no change Internal Medicine Assmt/Plan - Assessment Assessment: 1.HYPOTHYROIDISM. 2.CHRONIC SMOKING. 3.DEMENTIA. 4.PSYCHOSIS - Plan Plan: CONTINUE ON CURRENT MEDICATION AND DIET. Nutritional Asmnt/Malnutr-PDOC - Dietary Evaluation Malnutrition Findings (Please click <Entered> for more info): Nutritional Asmnt/Malnutrition Start: 06/08/19 10: 34 Text: Status: Complete Freq: Protocol: Document 06/08/19 10:35 KULWANT (Rec: 06/08/19 10:44 [email or web address] RODRIGUEZ- [id number]) Nutritional Asmnt/Malnutrition Patient General Information Nutritional Screening Low Risk Diagnosis Psychosis Pertinent Medical Hx/Surgical Hx Hypothyroidism, dementia, psychosis Subjective Information Patient was admitted from [place]. Tolerating current diet order with adequate intake (100% of meals ). Current Diet Order/ Nutrition Support Regular Patient / S.O Not Indicated Pertinent Medications Maalox, Colace, MOM, Theragran Pertinent Labs (06/04) Albumin 3.8, TAG 268 Nutritional Hx/Data Height 1.85 m Height (Calculated Centimeters) 185.4 Current Weight (lbs) 90.718 kg Weight (Calculated Kilograms) 90.7 Weight (Calculated Grams) 71119.5 [place] Body Weight 184 % [place] Body Weight 108 Body Mass Index (BMI) 26.4 Recent Weight Change No Weight Status Overweight GI Symptoms GI Symptoms None Last BM 06/07 x 1 Difficult in: None Food Allergies No Cultural/Ethnic/Amish Belief none indicated Usual diet at home unknown Skin Integrity/Comment: [place] 22, dryness Current %PO Good (75-100%) Estimated Nutritional Goals BEE in Kcals: Using Current wt Calories/Kcals/Kg 90.9 kg CBW (22-27 kcal/kg) Kcals Calculated ~0322-7404 kcal/day Protein: Using Current wt Protein g/k.8-1gm/kg Protein Calculated ~70-90 gm/day Fluid: ml ~2395-5146 ml/day (1 ml/kcal) Nutritional Problem No current Nutrition Prob Problem No nutrition diagnosis at this time Intervention/Recommendation Comments 1. Continue regular diet as tolerated by patient. Expected Outcomes/Goals Expected Outcomes/Goals Oral intake >75% of meals, weight stable or trend toward IBW, nutrition related labs WNL F/U LR 06/15
[2019-06-20] MEDS: Multivitamin Tab PO SCH (08:03)
[2019-06-20] MEDS: Aspirin 81mg Chewable Tab PO SCH (08:04)
--- NOTE | 2019-06-20 17:46 | Internal Medicine Prog Note ---
Internal Medicine Subjective - Subjective Service Date: 06/20/19 Patient seen and examined:: without staff (he is stable) Patient is:: awake, verbal, ambulating, talking, confused Per staff patient has:: no adverse event Internal Medicine Objective - Results Result Diagrams: 06/04/19 13:43 06/04/19 13:43 Recent Labs: Laboratory Last Values WBC 10.3 Th/cmm (4.8-10.8) 06/04/19 13:43 RBC 4.35 Mil/cmm (4.30-5.70) 06/04/19 13:43 Hgb 13.9 gm/dL (12-16) 06/04/19 13:43 Hct 41.1 % (41.0-60) 06/04/19 13:43 MCV 94.5 fl (80-99) 06/04/19 13:43 MCH 31.9 pg (26.0-30.0) H 06/04/19 13:43 MCHC Differential 33.7 pg (28.0-36.0) 06/04/19 13:43 RDW 13.4 % (11.5-20.0) 06/04/19 13:43 Plt Count 364 Th/cmm (150-400) 06/04/19 13:43 MPV 7.2 fl 06/04/19 13:43 Neutrophils % 69.2 % (40.0-80.0) 06/04/19 13:43 Lymphocytes % 23.7 % (20.0-50.0) 06/04/19 13:43 Monocytes % 6.7 % (2.0-10.0) 06/04/19 13:43 Eosinophils % 0.2 % (0.0-5.0) 06/04/19 13:43 Basophils % 0.2 % (0.0-2.0) 06/04/19 13:43 Sodium 136 mEq/L (136-145) 06/04/19 13:43 Potassium 4.1 mEq/L (3.5-5.1) 06/04/19 13:43 Chloride 106 mEq/L (98-107) 06/04/19 13:43 Carbon Dioxide 23.2 mEq/L (21.0-31.0) 06/04/19 13:43 Anion Gap 10.9 (7.0-16.0) 06/04/19 13:43 BUN 16 mg/dL (7-25) 06/04/19 13:43 Creatinine 1.1 mg/dL (0.7-1.3) 06/04/19 13:43 Est GFR ( Amer) > 60.0 ml/min (>90) 06/04/19 13:43 Est GFR (Non-Af Amer) > 60.0 ml/min 06/04/19 13:43 BUN/Creatinine Ratio 14.5 06/04/19 13:43 Glucose 86 mg/dL (70-105) 06/04/19 13:43 Calcium 9.1 mg/dL (8.6-10.3) 06/04/19 13:43 Total Bilirubin 0.4 mg/dL (0.3-1.0) 06/04/19 13:43 AST 14 U/L (13-39) 06/04/19 13:43 ALT 10 U/L (7-52) 06/04/19 13:43 Alkaline Phosphatase 37 U/L (34-104) 06/04/19 13:43 Troponin I < 0.01 ng/mL (0.01-0.05) L 06/04/19 13:43 Total Protein 6.7 gm/dL (6.0-8.3) 06/04/19 13:43 Albumin 3.8 gm/dL (4.2-5.5) L 06/04/19 13:43 Globulin 2.9 gm/dL 06/04/19 13:43 Albumin/Globulin Ratio 1.3 (1.0-1.8) 06/04/19 13:43 Triglycerides 268 mg/dL (<150) H 06/04/19 13:43 Cholesterol 147 mg/dL (<200) 06/04/19 13:43 LDL Cholesterol Direct 108 mg/dL (75-193) 06/04/19 13:43 HDL Cholesterol 29 mg/dL (23-92) 06/04/19 13:43 TSH 3.58 uIU/ml (0.34-5.60) 06/04/19 13:43 Urine Source CLEAN C 06/04/19 14:00 Urine Color YELLOW 06/04/19 14:00 Urine Clarity CLEAR (CLEAR) 06/04/19 14:00 Urine pH 6.5 (4.6 - 8.0) 06/04/19 14:00 Ur Specific [place] 1.020 (1.005-1.030) 06/04/19 14:00 Urine Protein NEGATIVE mg/dL (NEGATIVE) 06/04/19 14:00 Urine Glucose (UA) NEGATIVE mg/dL (NEGATIVE) 06/04/19 14:00 Urine Ketones NEGATIVE mg/dL (NEGATIVE) 06/04/19 14:00 Urine Blood NEGATIVE (NEGATIVE) 06/04/19 14:00 Urine Nitrate NEGATIVE (NEGATIVE) 06/04/19 14:00 Urine Bilirubin NEGATIVE (NEGATIVE) 06/04/19 14:00 Urine Urobilinogen 0.2 E.U./dL (0.2 - 1.0) 06/04/19 14:00 Ur Leukocyte Esterase NEGATIVE (NEGATIVE) 06/04/19 14:00 Urine RBC NONE SEEN /hpf (0-5) 06/04/19 14:00 Urine WBC 0-2 /hpf (0-5) 06/04/19 14:00 Ur Epithelial Cells OCCASIONAL /lpf (FEW) 06/04/19 14:00 Amorphous Sediment FEW URATES (NONE SEEN) 06/04/19 14:00 Urine Bacteria FEW /hpf (NONE SEEN) 06/04/19 14:00 Urine Mucus FEW /lpf (FEW) 06/04/19 14:00 Salicylates < 25.0 mg/L (30.0-100.0) L 06/04/19 13:43 Urine Opiates Screen NEGATIVE (NEGATIVE) 06/04/19 14:00 Urine Methadone Screen NEGATIVE (NEGATIVE) 06/04/19 14:00 Acetaminophen < 10.0 ug/mL (10.0-30.0) L 06/04/19 13:43 Ur Barbiturates Screen NEGATIVE (NEGATIVE) 06/04/19 14:00 Valproic Acid 74.1 ug/mL (50.0-100.0) 06/15/19 08:10 Ur Tricyclics Screen NEGATIVE (NEGATIVE) 06/04/19 14:00 Ur Phencyclidine Scrn NEGATIVE (NEGATIVE) 06/04/19 14:00 Amphetamines Screen NEGATIVE (NEGATIVE) 06/04/19 14:00 U Methamphetamines Scrn NEGATIVE (NEGATIVE) 06/04/19 14:00 U Benzodiazepines Scrn NEGATIVE (NEGATIVE) 06/04/19 14:00 U Cocaine Metab Screen NEGATIVE (NEGATIVE) 06/04/19 14:00 U Cannabinoids Screen NEGATIVE (NEGATIVE) 06/04/19 14:00 Ethyl Alcohol < 10 mg/dL (0-10) 06/04/19 13:43 RPR NONREACTIVE (NONREACTIVE) 06/04/19 13:43 - Physical Exam Vitals and I&O: Vital Signs Temp 97.8 F 06/20/19 15:55 Pulse 76 06/20/19 15:55 Resp 20 06/20/19 15:55 BP 117/70 06/20/19 15:55 Pulse Ox 98 06/20/19 15:55 Intake & Output 06/19/19 06/20/19 06/20/19 18:59 06:59 18:59 Intake Total 120 Balance 120 Intake: Oral 120 Other: # Voids 2 3 # Bowel Movements 1 Active Medications: Current Medications Acetaminophen (Tylenol) 650 mg PO Q4HR PRN PRN Reason: Mild Pain / Temp above 100 Stop: 08/03/19 15:58 Last Admin: 06/19/19 13:26 Dose: 650 mg Al Hydrox/Mg Hydrox/Simethicone (Maalox) 30 ml PO Q4HR PRN PRN Reason: GI DISTRESS Stop: 08/03/19 15:58 Aspirin (Aspirin Chewable) 81 mg PO DAILY EREN Stop: 08/04/19 08:59 Last Admin: 06/20/19 08:04 Dose: 81 mg Clonazepam (Klonopin) 1 mg PO BID [facility]; Protocol Stop: 08/06/19 16:59 Last Admin: 06/20/19 17:17 Dose: 1 mg Divalproex Sodium (Depakote Er) 1,500 mg PO BID EREN; Protocol Stop: 08/04/19 08:59 Last Admin: 06/20/19 17:16 Dose: 1,500 mg Docusate Sodium (Colace) 250 mg PO DAILY EREN Stop: 08/04/19 08:59 Last Admin: 06/20/19 08:04 Dose: 250 mg Krupp Carbonate (Eskalith) 300 mg PO TID EREN; Protocol Stop: 08/07/19 08:59 Last Admin: 06/20/19 14:02 Dose: 300 mg Lorazepam (Ativan) 0.5 mg PO Q6HR PRN; Protocol PRN Reason: Agitation Stop: 08/12/19 20:19 Last Admin: 06/18/19 08:41 Dose: 0.5 mg Magnesium Hydroxide (Milk Of Magnesia) 30 ml PO HS PRN PRN Reason: Constipation Multivitamins/Vitamin C (Theragran) 1 tab PO DAILY EREN Stop: 08/04/19 08:59 Last Admin: 06/20/19 08:03 Dose: 1 tab Quetiapine Fumarate (Seroquel) 300 mg PO TID EREN Stop: 08/12/19 13:59 Last Admin: 06/20/19 14:01 Dose: 300 mg Trazodone HCl (Desyrel) 200 mg PO HS EREN; Protocol Stop: 08/04/19 20:59 Last Admin: 06/19/19 20:22 Dose: 200 mg General: demented HEENT: NC/AT, PERRLA, EOMI, anicteric sclerae, throat clear Neck: Supple, No JVD, No thyromegaly, +2 carotid pulse wo bruit, No LAD Lungs: CTAB Cardiovascular: RRR, Normal S1, Normal S2, without murmur Abdomen: soft, non-tender, non-distended Extremities: clear Neurological: no change Internal Medicine Assmt/Plan - Assessment Assessment: 1.HYPOTHYROIDISM. 2.CHRONIC SMOKING. 3.DEMENTIA. 4.PSYCHOSIS - Plan Plan: CONTINUE ON CURRENT MEDICATION AND DIET. Nutritional Asmnt/Malnutr-PDOC - Dietary Evaluation Malnutrition Findings (Please click <Entered> for more info): Nutritional Asmnt/Malnutrition Start: 06/08/19 10: 34 Text: Status: Complete Freq: Protocol: Document 06/08/19 10:35 KULWANT (Rec: 06/08/19 10:44 MMBROOKS RODRIGUEZ- [id number]) Nutritional Asmnt/Malnutrition Patient General Information Nutritional Screening Low Risk Diagnosis Psychosis Pertinent Medical Hx/Surgical Hx Hypothyroidism, dementia, psychosis Subjective Information Patient was admitted from [place]. Tolerating current diet order with adequate intake (100% of meals ). Current Diet Order/ Nutrition Support Regular Patient / S.O Not Indicated Pertinent Medications Maalox, Colace, MOM, Theragran Pertinent Labs (06/04) Albumin 3.8, TAG 268 Nutritional Hx/Data Height 1.85 m Height (Calculated Centimeters) 185.4 Current Weight (lbs) 90.718 kg Weight (Calculated Kilograms) 90.7 Weight (Calculated Grams) 99325.5 [place] Body Weight 184 % [place] Body Weight 108 Body Mass Index (BMI) 26.4 Recent Weight Change No Weight Status Overweight GI Symptoms GI Symptoms None Last BM 06/07 x 1 Difficult in: None Food Allergies No Cultural/Ethnic/Anabaptism Belief none indicated Usual diet at home unknown Skin Integrity/Comment: [place] 22, dryness Current %PO Good (75-100%) Estimated Nutritional Goals BEE in Kcals: Using Current wt Calories/Kcals/Kg 90.9 kg CBW (22-27 kcal/kg) Kcals Calculated ~7006-9502 kcal/day Protein: Using Current wt Protein g/k.8-1gm/kg Protein Calculated ~70-90 gm/day Fluid: ml ~1629-3664 ml/day (1 ml/kcal) Nutritional Problem No current Nutrition Prob Problem No nutrition diagnosis at this time Intervention/Recommendation Comments 1. Continue regular diet as tolerated by patient. Expected Outcomes/Goals Expected Outcomes/Goals Oral intake >75% of meals, weight stable or trend toward IBW, nutrition related labs WNL F/U LR 06/15
[2019-06-21] MEDS: Multivitamin Tab PO SCH (08:27)
[2019-06-21] MEDS: Aspirin 81mg Chewable Tab PO SCH (08:28)
--- NOTE | 2019-06-21 17:18 | Internal Medicine Prog Note ---
Internal Medicine Subjective - Subjective Service Date: 06/21/19 Patient seen and examined:: without staff (HE IS DOING WELL) Patient is:: awake, verbal, ambulating, talking, confused Per staff patient has:: no adverse event Internal Medicine Objective - Results Result Diagrams: 06/04/19 13:43 06/04/19 13:43 Recent Labs: Laboratory Last Values WBC 10.3 Th/cmm (4.8-10.8) 06/04/19 13:43 RBC 4.35 Mil/cmm (4.30-5.70) 06/04/19 13:43 Hgb 13.9 gm/dL (12-16) 06/04/19 13:43 Hct 41.1 % (41.0-60) 06/04/19 13:43 MCV 94.5 fl (80-99) 06/04/19 13:43 MCH 31.9 pg (26.0-30.0) H 06/04/19 13:43 MCHC Differential 33.7 pg (28.0-36.0) 06/04/19 13:43 RDW 13.4 % (11.5-20.0) 06/04/19 13:43 Plt Count 364 Th/cmm (150-400) 06/04/19 13:43 MPV 7.2 fl 06/04/19 13:43 Neutrophils % 69.2 % (40.0-80.0) 06/04/19 13:43 Lymphocytes % 23.7 % (20.0-50.0) 06/04/19 13:43 Monocytes % 6.7 % (2.0-10.0) 06/04/19 13:43 Eosinophils % 0.2 % (0.0-5.0) 06/04/19 13:43 Basophils % 0.2 % (0.0-2.0) 06/04/19 13:43 Sodium 136 mEq/L (136-145) 06/04/19 13:43 Potassium 4.1 mEq/L (3.5-5.1) 06/04/19 13:43 Chloride 106 mEq/L (98-107) 06/04/19 13:43 Carbon Dioxide 23.2 mEq/L (21.0-31.0) 06/04/19 13:43 Anion Gap 10.9 (7.0-16.0) 06/04/19 13:43 BUN 16 mg/dL (7-25) 06/04/19 13:43 Creatinine 1.1 mg/dL (0.7-1.3) 06/04/19 13:43 Est GFR ( Amer) > 60.0 ml/min (>90) 06/04/19 13:43 Est GFR (Non-Af Amer) > 60.0 ml/min 06/04/19 13:43 BUN/Creatinine Ratio 14.5 06/04/19 13:43 Glucose 86 mg/dL (70-105) 06/04/19 13:43 Calcium 9.1 mg/dL (8.6-10.3) 06/04/19 13:43 Total Bilirubin 0.4 mg/dL (0.3-1.0) 06/04/19 13:43 AST 14 U/L (13-39) 06/04/19 13:43 ALT 10 U/L (7-52) 06/04/19 13:43 Alkaline Phosphatase 37 U/L (34-104) 06/04/19 13:43 Troponin I < 0.01 ng/mL (0.01-0.05) L 06/04/19 13:43 Total Protein 6.7 gm/dL (6.0-8.3) 06/04/19 13:43 Albumin 3.8 gm/dL (4.2-5.5) L 06/04/19 13:43 Globulin 2.9 gm/dL 06/04/19 13:43 Albumin/Globulin Ratio 1.3 (1.0-1.8) 06/04/19 13:43 Triglycerides 268 mg/dL (<150) H 06/04/19 13:43 Cholesterol 147 mg/dL (<200) 06/04/19 13:43 LDL Cholesterol Direct 108 mg/dL (75-193) 06/04/19 13:43 HDL Cholesterol 29 mg/dL (23-92) 06/04/19 13:43 TSH 3.58 uIU/ml (0.34-5.60) 06/04/19 13:43 Urine Source CLEAN C 06/04/19 14:00 Urine Color YELLOW 06/04/19 14:00 Urine Clarity CLEAR (CLEAR) 06/04/19 14:00 Urine pH 6.5 (4.6 - 8.0) 06/04/19 14:00 Ur Specific [place] 1.020 (1.005-1.030) 06/04/19 14:00 Urine Protein NEGATIVE mg/dL (NEGATIVE) 06/04/19 14:00 Urine Glucose (UA) NEGATIVE mg/dL (NEGATIVE) 06/04/19 14:00 Urine Ketones NEGATIVE mg/dL (NEGATIVE) 06/04/19 14:00 Urine Blood NEGATIVE (NEGATIVE) 06/04/19 14:00 Urine Nitrate NEGATIVE (NEGATIVE) 06/04/19 14:00 Urine Bilirubin NEGATIVE (NEGATIVE) 06/04/19 14:00 Urine Urobilinogen 0.2 E.U./dL (0.2 - 1.0) 06/04/19 14:00 Ur Leukocyte Esterase NEGATIVE (NEGATIVE) 06/04/19 14:00 Urine RBC NONE SEEN /hpf (0-5) 06/04/19 14:00 Urine WBC 0-2 /hpf (0-5) 06/04/19 14:00 Ur Epithelial Cells OCCASIONAL /lpf (FEW) 06/04/19 14:00 Amorphous Sediment FEW URATES (NONE SEEN) 06/04/19 14:00 Urine Bacteria FEW /hpf (NONE SEEN) 06/04/19 14:00 Urine Mucus FEW /lpf (FEW) 06/04/19 14:00 Salicylates < 25.0 mg/L (30.0-100.0) L 06/04/19 13:43 Urine Opiates Screen NEGATIVE (NEGATIVE) 06/04/19 14:00 Urine Methadone Screen NEGATIVE (NEGATIVE) 06/04/19 14:00 Acetaminophen < 10.0 ug/mL (10.0-30.0) L 06/04/19 13:43 Ur Barbiturates Screen NEGATIVE (NEGATIVE) 06/04/19 14:00 Valproic Acid 74.1 ug/mL (50.0-100.0) 06/15/19 08:10 Ur Tricyclics Screen NEGATIVE (NEGATIVE) 06/04/19 14:00 Ur Phencyclidine Scrn NEGATIVE (NEGATIVE) 06/04/19 14:00 Amphetamines Screen NEGATIVE (NEGATIVE) 06/04/19 14:00 U Methamphetamines Scrn NEGATIVE (NEGATIVE) 06/04/19 14:00 U Benzodiazepines Scrn NEGATIVE (NEGATIVE) 06/04/19 14:00 U Cocaine Metab Screen NEGATIVE (NEGATIVE) 06/04/19 14:00 U Cannabinoids Screen NEGATIVE (NEGATIVE) 06/04/19 14:00 Ethyl Alcohol < 10 mg/dL (0-10) 06/04/19 13:43 RPR NONREACTIVE (NONREACTIVE) 06/04/19 13:43 - Physical Exam Vitals and I&O: Vital Signs Temp 98.0 F 06/21/19 14:00 Pulse 64 06/21/19 14:00 Resp 18 06/21/19 14:00 BP 105/58 06/21/19 14:00 Pulse Ox 98 06/21/19 14:00 Intake & Output 06/20/19 06/21/19 06/21/19 18:59 06:59 18:59 Intake Total 1600 120 Balance 1600 120 Intake: Oral 1600 120 Other: # Voids 4 3 # Bowel Movements 1 Active Medications: Current Medications Acetaminophen (Tylenol) 650 mg PO Q4HR PRN PRN Reason: Mild Pain / Temp above 100 Stop: 08/03/19 15:58 Last Admin: 06/19/19 13:26 Dose: 650 mg Al Hydrox/Mg Hydrox/Simethicone (Maalox) 30 ml PO Q4HR PRN PRN Reason: GI DISTRESS Stop: 08/03/19 15:58 Aspirin (Aspirin Chewable) 81 mg PO DAILY EREN Stop: 08/04/19 08:59 Last Admin: 06/21/19 08:28 Dose: 81 mg Clonazepam (Klonopin) 1 mg PO BID EREN; Protocol Stop: 08/06/19 16:59 Last Admin: 06/21/19 16:38 Dose: 1 mg Divalproex Sodium (Depakote Er) 1,500 mg PO BID EREN; Protocol Stop: 08/04/19 08:59 Last Admin: 06/21/19 16:38 Dose: 1,500 mg Docusate Sodium (Colace) 250 mg PO DAILY EREN Stop: 08/04/19 08:59 Last Admin: 06/21/19 08:28 Dose: 250 mg Reader Carbonate (Eskalith) 300 mg PO TID EREN; Protocol Stop: 08/07/19 08:59 Last Admin: 06/21/19 13:42 Dose: 300 mg Lorazepam (Ativan) 0.5 mg PO Q6HR PRN; Protocol PRN Reason: Agitation Stop: 08/12/19 20:19 Last Admin: 06/20/19 22:30 Dose: 0.5 mg Magnesium Hydroxide (Milk Of Magnesia) 30 ml PO HS PRN PRN Reason: Constipation Multivitamins/Vitamin C (Theragran) 1 tab PO DAILY EREN Stop: 08/04/19 08:59 Last Admin: 06/21/19 08:27 Dose: 1 tab Quetiapine Fumarate (Seroquel) 300 mg PO TID EREN Stop: 08/12/19 13:59 Last Admin: 06/21/19 13:42 Dose: 300 mg Trazodone HCl (Desyrel) 200 mg PO HS EREN; Protocol Stop: 08/04/19 20:59 Last Admin: 06/20/19 21:12 Dose: 200 mg General: demented HEENT: NC/AT, PERRLA, EOMI, anicteric sclerae, throat clear Neck: Supple, No JVD, No thyromegaly, +2 carotid pulse wo bruit, No LAD Lungs: CTAB Cardiovascular: RRR, Normal S1, Normal S2, without murmur Abdomen: soft, non-tender, non-distended Extremities: clear Neurological: no change Internal Medicine Assmt/Plan - Assessment Assessment: 1.HYPOTHYROIDISM. 2.CHRONIC SMOKING. 3.DEMENTIA. 4.PSYCHOSIS - Plan Plan: CONTINUE ON CURRENT MEDICATION AND DIET. Nutritional Asmnt/Malnutr-PDOC - Dietary Evaluation Malnutrition Findings (Please click <Entered> for more info): Nutritional Asmnt/Malnutrition Start: 06/08/19 10: 34 Text: Status: Complete Freq: Protocol: Document 06/08/19 10:35 KULWANT (Rec: 06/08/19 10:44 MMBROOKS RODRIGUEZ- FNS1) Nutritional Asmnt/Malnutrition Patient General Information Nutritional Screening Low Risk Diagnosis Psychosis Pertinent Medical Hx/Surgical Hx Hypothyroidism, dementia, psychosis Subjective Information Patient was admitted from [place]. Tolerating current diet order with adequate intake (100% of meals ). Current Diet Order/ Nutrition Support Regular Patient / S.O Not Indicated Pertinent Medications Maalox, Colace, MOM, Theragran Pertinent Labs (06/04) Albumin 3.8, TAG 268 Nutritional Hx/Data Height 1.85 m Height (Calculated Centimeters) 185.4 Current Weight (lbs) 90.718 kg Weight (Calculated Kilograms) 90.7 Weight (Calculated Grams) 51061.5 [place] Body Weight 184 % [place] Body Weight 108 Body Mass Index (BMI) 26.4 Recent Weight Change No Weight Status Overweight GI Symptoms GI Symptoms None Last BM 06/07 x 1 Difficult in: None Food Allergies No Cultural/Ethnic/Sabianism Belief none indicated Usual diet at home unknown Skin Integrity/Comment: [place] 22, dryness Current %PO Good (75-100%) Estimated Nutritional Goals BEE in Kcals: Using Current wt Calories/Kcals/Kg 90.9 kg CBW (22-27 kcal/kg) Kcals Calculated ~6546-9761 kcal/day Protein: Using Current wt Protein g/k.8-1gm/kg Protein Calculated ~70-90 gm/day Fluid: ml ~3911-4092 ml/day (1 ml/kcal) Nutritional Problem No current Nutrition Prob Problem No nutrition diagnosis at this time Intervention/Recommendation Comments 1. Continue regular diet as tolerated by patient. Expected Outcomes/Goals Expected Outcomes/Goals Oral intake >75% of meals, weight stable or trend toward IBW, nutrition related labs WNL F/U LR 06/15
--- NOTE | 2019-06-21 22:47 | Progress Notes ---
DATE: 06/20/[address] Escalante. Case was discussed with staff of the patient, reviewed records. This is a late note for 06/20/2019. The patient continues to be impulsive, unpredictable, needing redirection. When asked about his age, he could not tell me. 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 Continues to be unable to participate in a meaningful conversation or make safe plan for self-care, unpredictable, impulsive, needing redirection. I will continue outpatient group therapy, milieu therapy, adjust medication as needed. JOB# [id number]
--- NOTE | 2019-06-21 22:50 | Progress Notes ---
DATE: 06/21/2019 Case was discussed with staff of the patient, reviewed records. The patient continues to be confused, unpredictable, and impulsive with episodes of agitation and irritability. Continues to have poor insight. Unable to make safe plan for his self-care, easily agitated, sleeping better, and eating better. No side effects from the medication, no sedation, no nausea, no extrapyramidal symptoms. We will continue outpatient group therapy, milieu therapy, and adjust medication as needed. [facility]# [id number]
--- NOTE | 2019-06-22 07:09 | Progress Notes ---
DATE: 06/22/2019 SUBJECTIVE: The patient in the hospital, transferred from [facility], increased agitation, irritability. He was restless and aggressive, now he is just manic appearing, talking very quickly and very bizarre, talking about science experiments, refusing to talk to me this morning. Staff noting he still remains manic appearing. ASSESSMENT: The patient with ongoing antonieta, delusions continue to monitor. Consider the addition dosing of Haldol. He is on lithium and Depakote. Labs were reviewed. JOB# [id number]
[2019-06-22] MEDS: Aspirin 81mg Chewable Tab PO SCH (09:18)
[2019-06-22] MEDS: Multivitamin Tab PO SCH (09:19)
--- NOTE | 2019-06-22 21:00 | General Progress Note ---
Subjective - Review of Systems Service Date: 06/22/19 Subjective: resting comfortably no distress Objective - Results Result Diagrams: 06/04/19 13:43 06/04/19 13:43 Recent Labs: Laboratory Last Values WBC 10.3 Th/cmm (4.8-10.8) 06/04/19 13:43 RBC 4.35 Mil/cmm (4.30-5.70) 06/04/19 13:43 Hgb 13.9 gm/dL (12-16) 06/04/19 13:43 Hct 41.1 % (41.0-60) 06/04/19 13:43 MCV 94.5 fl (80-99) 06/04/19 13:43 MCH 31.9 pg (26.0-30.0) H 06/04/19 13:43 MCHC Differential 33.7 pg (28.0-36.0) 06/04/19 13:43 RDW 13.4 % (11.5-20.0) 06/04/19 13:43 Plt Count 364 Th/cmm (150-400) 06/04/19 13:43 MPV 7.2 fl 06/04/19 13:43 Neutrophils % 69.2 % (40.0-80.0) 06/04/19 13:43 Lymphocytes % 23.7 % (20.0-50.0) 06/04/19 13:43 Monocytes % 6.7 % (2.0-10.0) 06/04/19 13:43 Eosinophils % 0.2 % (0.0-5.0) 06/04/19 13:43 Basophils % 0.2 % (0.0-2.0) 06/04/19 13:43 Sodium 136 mEq/L (136-145) 06/04/19 13:43 Potassium 4.1 mEq/L (3.5-5.1) 06/04/19 13:43 Chloride 106 mEq/L (98-107) 06/04/19 13:43 Carbon Dioxide 23.2 mEq/L (21.0-31.0) 06/04/19 13:43 Anion Gap 10.9 (7.0-16.0) 06/04/19 13:43 BUN 16 mg/dL (7-25) 06/04/19 13:43 Creatinine 1.1 mg/dL (0.7-1.3) 06/04/19 13:43 Est GFR ( Amer) > 60.0 ml/min (>90) 06/04/19 13:43 Est GFR (Non-Af Amer) > 60.0 ml/min 06/04/19 13:43 BUN/Creatinine Ratio 14.5 06/04/19 13:43 Glucose 86 mg/dL (70-105) 06/04/19 13:43 Calcium 9.1 mg/dL (8.6-10.3) 06/04/19 13:43 Total Bilirubin 0.4 mg/dL (0.3-1.0) 06/04/19 13:43 AST 14 U/L (13-39) 06/04/19 13:43 ALT 10 U/L (7-52) 06/04/19 13:43 Alkaline Phosphatase 37 U/L (34-104) 06/04/19 13:43 Troponin I < 0.01 ng/mL (0.01-0.05) L 06/04/19 13:43 Total Protein 6.7 gm/dL (6.0-8.3) 06/04/19 13:43 Albumin 3.8 gm/dL (4.2-5.5) L 06/04/19 13:43 Globulin 2.9 gm/dL 06/04/19 13:43 Albumin/Globulin Ratio 1.3 (1.0-1.8) 06/04/19 13:43 Triglycerides 268 mg/dL (<150) H 06/04/19 13:43 Cholesterol 147 mg/dL (<200) 06/04/19 13:43 LDL Cholesterol Direct 108 mg/dL (75-193) 06/04/19 13:43 HDL Cholesterol 29 mg/dL (23-92) 06/04/19 13:43 TSH 3.58 uIU/ml (0.34-5.60) 06/04/19 13:43 Urine Source CLEAN C 06/04/19 14:00 Urine Color YELLOW 06/04/19 14:00 Urine Clarity CLEAR (CLEAR) 06/04/19 14:00 Urine pH 6.5 (4.6 - 8.0) 06/04/19 14:00 Ur Specific [place] 1.020 (1.005-1.030) 06/04/19 14:00 Urine Protein NEGATIVE mg/dL (NEGATIVE) 06/04/19 14:00 Urine Glucose (UA) NEGATIVE mg/dL (NEGATIVE) 06/04/19 14:00 Urine Ketones NEGATIVE mg/dL (NEGATIVE) 06/04/19 14:00 Urine Blood NEGATIVE (NEGATIVE) 06/04/19 14:00 Urine Nitrate NEGATIVE (NEGATIVE) 06/04/19 14:00 Urine Bilirubin NEGATIVE (NEGATIVE) 06/04/19 14:00 Urine Urobilinogen 0.2 E.U./dL (0.2 - 1.0) 06/04/19 14:00 Ur Leukocyte Esterase NEGATIVE (NEGATIVE) 06/04/19 14:00 Urine RBC NONE SEEN /hpf (0-5) 06/04/19 14:00 Urine WBC 0-2 /hpf (0-5) 06/04/19 14:00 Ur Epithelial Cells OCCASIONAL /lpf (FEW) 06/04/19 14:00 Amorphous Sediment FEW URATES (NONE SEEN) 06/04/19 14:00 Urine Bacteria FEW /hpf (NONE SEEN) 06/04/19 14:00 Urine Mucus FEW /lpf (FEW) 06/04/19 14:00 Salicylates < 25.0 mg/L (30.0-100.0) L 06/04/19 13:43 Urine Opiates Screen NEGATIVE (NEGATIVE) 06/04/19 14:00 Urine Methadone Screen NEGATIVE (NEGATIVE) 06/04/19 14:00 Acetaminophen < 10.0 ug/mL (10.0-30.0) L 06/04/19 13:43 Ur Barbiturates Screen NEGATIVE (NEGATIVE) 06/04/19 14:00 Valproic Acid 74.1 ug/mL (50.0-100.0) 06/15/19 08:10 Ur Tricyclics Screen NEGATIVE (NEGATIVE) 06/04/19 14:00 Ur Phencyclidine Scrn NEGATIVE (NEGATIVE) 06/04/19 14:00 Amphetamines Screen NEGATIVE (NEGATIVE) 06/04/19 14:00 U Methamphetamines Scrn NEGATIVE (NEGATIVE) 06/04/19 14:00 U Benzodiazepines Scrn NEGATIVE (NEGATIVE) 06/04/19 14:00 U Cocaine Metab Screen NEGATIVE (NEGATIVE) 06/04/19 14:00 U Cannabinoids Screen NEGATIVE (NEGATIVE) 06/04/19 14:00 Ethyl Alcohol < 10 mg/dL (0-10) 06/04/19 13:43 RPR NONREACTIVE (NONREACTIVE) 06/04/19 13:43 - Physical Exam Vitals and I&O: Vital Signs Temp 98.1 F 06/22/19 20:07 Pulse 68 06/22/19 20:07 Resp 19 06/22/19 20:07 BP 130/77 06/22/19 20:07 Pulse Ox 99 06/22/19 20:07 Intake & Output 06/22/19 06/22/19 06/23/19 06:59 18:59 06:59 Intake Total 360 1320 480 Balance 360 1320 480 Intake: Oral 360 1080 480 Other 240 Other: # Voids 2 4 2 # Bowel Movements 0 0 Active Medications: Current Medications Acetaminophen (Tylenol) 650 mg PO Q4HR PRN PRN Reason: Mild Pain / Temp above 100 Stop: 08/03/19 15:58 Last Admin: 06/19/19 13:26 Dose: 650 mg Al Hydrox/Mg Hydrox/Simethicone (Maalox) 30 ml PO Q4HR PRN PRN Reason: GI DISTRESS Stop: 08/03/19 15:58 Aspirin (Aspirin Chewable) 81 mg PO DAILY EREN Stop: 08/04/19 08:59 Last Admin: 06/22/19 09:18 Dose: 81 mg Clonazepam (Klonopin) 1 mg PO BID EREN; Protocol Stop: 08/06/19 16:59 Last Admin: 06/22/19 17:33 Dose: 1 mg Divalproex Sodium (Depakote Er) 1,500 mg PO BID EREN; Protocol Stop: 08/04/19 08:59 Last Admin: 06/22/19 17:32 Dose: 1,500 mg Docusate Sodium (Colace) 250 mg PO DAILY EREN Stop: 08/04/19 08:59 Last Admin: 06/22/19 09:18 Dose: 250 mg [place] Carbonate (Eskalith) 300 mg PO TID EREN; Protocol Stop: 08/07/19 08:59 Last Admin: 06/22/19 20:30 Dose: 300 mg Lorazepam (Ativan) 0.5 mg PO Q6HR PRN; Protocol PRN Reason: Agitation Stop: 08/12/19 20:19 Last Admin: 06/22/19 17:33 Dose: 0.5 mg Magnesium Hydroxide (Milk Of Magnesia) 30 ml PO HS PRN PRN Reason: Constipation Multivitamins/Vitamin C (Theragran) 1 tab PO DAILY EREN Stop: 08/04/19 08:59 Last Admin: 06/22/19 09:19 Dose: 1 tab Quetiapine Fumarate (Seroquel) 300 mg PO TID EREN Stop: 08/12/19 13:59 Last Admin: 06/22/19 20:30 Dose: 300 mg Trazodone HCl (Desyrel) 200 mg PO HS EREN; Protocol Stop: 08/04/19 20:59 Last Admin: 06/22/19 20:29 Dose: 200 mg General: No acute distress HEENT: Atraumatic, PERRLA Neck: Supple, JVD Cardiovascular: Regular rate, Normal S1, Normal S2 Lungs: Clear to auscultation Abdomen: Bowel sounds, Soft Assessment/Plan - Assessment Assessment: 1.HYPOTHYROIDISM. 2.CHRONIC SMOKING. 3.DEMENTIA. 4.PSYCHOSIS - Plan Plan: continue current treatment Nutritional Asmnt/Malnutr-PDOC - Dietary Evaluation Malnutrition Findings (Please click <Entered> for more info): Nutritional Asmnt/Malnutrition Start: 06/08/19 10: 34 Text: Status: Complete Freq: Protocol: Document 06/08/19 10:35 KULWANT (Rec: 06/08/19 10:44 KULWANT RODRIGUEZ- [id number]) Nutritional Asmnt/Malnutrition Patient General Information Nutritional Screening Low Risk Diagnosis Psychosis Pertinent Medical Hx/Surgical Hx Hypothyroidism, dementia, psychosis Subjective Information Patient was admitted from [place]. Tolerating current diet order with adequate intake (100% of meals ). Current Diet Order/ Nutrition Support Regular Patient / S.O Not Indicated Pertinent Medications Maalox, Colace, MOM, Theragran Pertinent Labs (06/04) Albumin 3.8, TAG 268 Nutritional Hx/Data Height 1.85 m Height (Calculated Centimeters) 185.4 Current Weight (lbs) 90.718 kg Weight (Calculated Kilograms) 90.7 Weight (Calculated Grams) 93225.5 [place] Body Weight 184 % [place] Body Weight 108 Body Mass Index (BMI) 26.4 Recent Weight Change No Weight Status Overweight GI Symptoms GI Symptoms None Last BM 06/07 x 1 Difficult in: None Food Allergies No Cultural/Ethnic/Christian Belief none indicated Usual diet at home unknown Skin Integrity/Comment: [place] 22, dryness Current %PO Good (75-100%) Estimated Nutritional Goals BEE in Kcals: Using Current wt Calories/Kcals/Kg 90.9 kg CBW (22-27 kcal/kg) Kcals Calculated ~3067-5531 kcal/day Protein: Using Current wt Protein g/k.8-1gm/kg Protein Calculated ~70-90 gm/day Fluid: ml ~8652-1881 ml/day (1 ml/kcal) Nutritional Problem No current Nutrition Prob Problem No nutrition diagnosis at this time Intervention/Recommendation Comments 1. Continue regular diet as tolerated by patient. Expected Outcomes/Goals Expected Outcomes/Goals Oral intake >75% of meals, weight stable or trend toward IBW, nutrition related labs WNL F/U LR 06/15
--- NOTE | 2019-06-23 08:21 | Progress Notes ---
DATE: 06/23/2019 SUBJECTIVE: The patient is still manic appearing, preoccupied, writing things down on a piece of paper, poor orientation and responding to internal stimuli, still talking about science, numbers, equations for coming up with cocaine. PLAN: We will continue to monitor. Continue dosing of Seroquel. Continue dose titration. JOB# [id number]
[2019-06-23] MEDS: Aspirin 81mg Chewable Tab PO SCH (08:41)
[2019-06-23] MEDS: QUETIAPINE FUMARATE PO SCH ×3 (08:42→20:39)
[2019-06-23] MEDS: Multivitamin Tab PO SCH (08:47)
--- NOTE | 2019-06-23 16:17 | General Progress Note ---
Subjective - Review of Systems Service Date: 06/23/19 Subjective: resting comfortably no distress Objective - Results Result Diagrams: 06/04/19 13:43 06/04/19 13:43 Recent Labs: Laboratory Last Values WBC 10.3 Th/cmm (4.8-10.8) 06/04/19 13:43 RBC 4.35 Mil/cmm (4.30-5.70) 06/04/19 13:43 Hgb 13.9 gm/dL (12-16) 06/04/19 13:43 Hct 41.1 % (41.0-60) 06/04/19 13:43 MCV 94.5 fl (80-99) 06/04/19 13:43 MCH 31.9 pg (26.0-30.0) H 06/04/19 13:43 MCHC Differential 33.7 pg (28.0-36.0) 06/04/19 13:43 RDW 13.4 % (11.5-20.0) 06/04/19 13:43 Plt Count 364 Th/cmm (150-400) 06/04/19 13:43 MPV 7.2 fl 06/04/19 13:43 Neutrophils % 69.2 % (40.0-80.0) 06/04/19 13:43 Lymphocytes % 23.7 % (20.0-50.0) 06/04/19 13:43 Monocytes % 6.7 % (2.0-10.0) 06/04/19 13:43 Eosinophils % 0.2 % (0.0-5.0) 06/04/19 13:43 Basophils % 0.2 % (0.0-2.0) 06/04/19 13:43 Sodium 136 mEq/L (136-145) 06/04/19 13:43 Potassium 4.1 mEq/L (3.5-5.1) 06/04/19 13:43 Chloride 106 mEq/L (98-107) 06/04/19 13:43 Carbon Dioxide 23.2 mEq/L (21.0-31.0) 06/04/19 13:43 Anion Gap 10.9 (7.0-16.0) 06/04/19 13:43 BUN 16 mg/dL (7-25) 06/04/19 13:43 Creatinine 1.1 mg/dL (0.7-1.3) 06/04/19 13:43 Est GFR ( Amer) > 60.0 ml/min (>90) 06/04/19 13:43 Est GFR (Non-Af Amer) > 60.0 ml/min 06/04/19 13:43 BUN/Creatinine Ratio 14.5 06/04/19 13:43 Glucose 86 mg/dL (70-105) 06/04/19 13:43 Calcium 9.1 mg/dL (8.6-10.3) 06/04/19 13:43 Total Bilirubin 0.4 mg/dL (0.3-1.0) 06/04/19 13:43 AST 14 U/L (13-39) 06/04/19 13:43 ALT 10 U/L (7-52) 06/04/19 13:43 Alkaline Phosphatase 37 U/L (34-104) 06/04/19 13:43 Troponin I < 0.01 ng/mL (0.01-0.05) L 06/04/19 13:43 Total Protein 6.7 gm/dL (6.0-8.3) 06/04/19 13:43 Albumin 3.8 gm/dL (4.2-5.5) L 06/04/19 13:43 Globulin 2.9 gm/dL 06/04/19 13:43 Albumin/Globulin Ratio 1.3 (1.0-1.8) 06/04/19 13:43 Triglycerides 268 mg/dL (<150) H 06/04/19 13:43 Cholesterol 147 mg/dL (<200) 06/04/19 13:43 LDL Cholesterol Direct 108 mg/dL (75-193) 06/04/19 13:43 HDL Cholesterol 29 mg/dL (23-92) 06/04/19 13:43 TSH 3.58 uIU/ml (0.34-5.60) 06/04/19 13:43 Urine Source CLEAN C 06/04/19 14:00 Urine Color YELLOW 06/04/19 14:00 Urine Clarity CLEAR (CLEAR) 06/04/19 14:00 Urine pH 6.5 (4.6 - 8.0) 06/04/19 14:00 Ur Specific [place] 1.020 (1.005-1.030) 06/04/19 14:00 Urine Protein NEGATIVE mg/dL (NEGATIVE) 06/04/19 14:00 Urine Glucose (UA) NEGATIVE mg/dL (NEGATIVE) 06/04/19 14:00 Urine Ketones NEGATIVE mg/dL (NEGATIVE) 06/04/19 14:00 Urine Blood NEGATIVE (NEGATIVE) 06/04/19 14:00 Urine Nitrate NEGATIVE (NEGATIVE) 06/04/19 14:00 Urine Bilirubin NEGATIVE (NEGATIVE) 06/04/19 14:00 Urine Urobilinogen 0.2 E.U./dL (0.2 - 1.0) 06/04/19 14:00 Ur Leukocyte Esterase NEGATIVE (NEGATIVE) 06/04/19 14:00 Urine RBC NONE SEEN /hpf (0-5) 06/04/19 14:00 Urine WBC 0-2 /hpf (0-5) 06/04/19 14:00 Ur Epithelial Cells OCCASIONAL /lpf (FEW) 06/04/19 14:00 Amorphous Sediment FEW URATES (NONE SEEN) 06/04/19 14:00 Urine Bacteria FEW /hpf (NONE SEEN) 06/04/19 14:00 Urine Mucus FEW /lpf (FEW) 06/04/19 14:00 Salicylates < 25.0 mg/L (30.0-100.0) L 06/04/19 13:43 Urine Opiates Screen NEGATIVE (NEGATIVE) 06/04/19 14:00 Urine Methadone Screen NEGATIVE (NEGATIVE) 06/04/19 14:00 Acetaminophen < 10.0 ug/mL (10.0-30.0) L 06/04/19 13:43 Ur Barbiturates Screen NEGATIVE (NEGATIVE) 06/04/19 14:00 Valproic Acid 74.1 ug/mL (50.0-100.0) 06/15/19 08:10 Ur Tricyclics Screen NEGATIVE (NEGATIVE) 06/04/19 14:00 Ur Phencyclidine Scrn NEGATIVE (NEGATIVE) 06/04/19 14:00 Amphetamines Screen NEGATIVE (NEGATIVE) 06/04/19 14:00 U Methamphetamines Scrn NEGATIVE (NEGATIVE) 06/04/19 14:00 U Benzodiazepines Scrn NEGATIVE (NEGATIVE) 06/04/19 14:00 U Cocaine Metab Screen NEGATIVE (NEGATIVE) 06/04/19 14:00 U Cannabinoids Screen NEGATIVE (NEGATIVE) 06/04/19 14:00 Ethyl Alcohol < 10 mg/dL (0-10) 06/04/19 13:43 RPR NONREACTIVE (NONREACTIVE) 06/04/19 13:43 - Physical Exam Vitals and I&O: Vital Signs Temp 97.5 F 06/23/19 15:08 Pulse 82 06/23/19 15:08 Resp 20 06/23/19 15:08 BP 120/80 06/23/19 15:08 Pulse Ox 98 06/23/19 15:08 Intake & Output 06/22/19 06/23/19 06/23/19 18:59 06:59 18:59 Intake Total 1320 480 Balance 1320 480 Intake: Oral 1080 480 Other 240 Other: # Voids 4 2 # Bowel Movements 0 Active Medications: Current Medications Acetaminophen (Tylenol) 650 mg PO Q4HR PRN PRN Reason: Mild Pain / Temp above 100 Stop: 08/03/19 15:58 Last Admin: 06/19/19 13:26 Dose: 650 mg Al Hydrox/Mg Hydrox/Simethicone (Maalox) 30 ml PO Q4HR PRN PRN Reason: GI DISTRESS Stop: 08/03/19 15:58 Aspirin (Aspirin Chewable) 81 mg PO DAILY EREN Stop: 08/04/19 08:59 Last Admin: 06/23/19 08:41 Dose: 81 mg Clonazepam (Klonopin) 1 mg PO BID EREN; Protocol Stop: 08/06/19 16:59 Last Admin: 06/23/19 08:41 Dose: 1 mg Divalproex Sodium (Depakote Er) 1,500 mg PO BID EREN; Protocol Stop: 08/04/19 08:59 Last Admin: 06/23/19 08:46 Dose: 1,500 mg Docusate Sodium (Colace) 250 mg PO DAILY EREN Stop: 08/04/19 08:59 Last Admin: 06/23/19 08:45 Dose: 250 mg [place] Carbonate (Eskalith) 300 mg PO TID EREN; Protocol Stop: 08/07/19 08:59 Last Admin: 06/23/19 13:28 Dose: 300 mg Lorazepam (Ativan) 0.5 mg PO Q6HR PRN; Protocol PRN Reason: Agitation Stop: 08/12/19 20:19 Last Admin: 06/23/19 13:28 Dose: 0.5 mg Magnesium Hydroxide (Milk Of Magnesia) 30 ml PO HS PRN PRN Reason: Constipation Multivitamins/Vitamin C (Theragran) 1 tab PO DAILY EREN Stop: 08/04/19 08:59 Last Admin: 06/23/19 08:47 Dose: 1 tab Quetiapine Fumarate 25 mg/ (Quetiapine Fumarate 300 mg) 325 mg PO TID EREN Stop: 08/22/19 08:59 Last Admin: 06/23/19 13:29 Dose: 325 mg Trazodone HCl (Desyrel) 200 mg PO HS EREN; Protocol Stop: 08/04/19 20:59 Last Admin: 06/22/19 20:29 Dose: 200 mg General: No acute distress HEENT: Atraumatic, PERRLA Neck: Supple, JVD Cardiovascular: Regular rate, Normal S1, Normal S2 Lungs: Clear to auscultation Abdomen: Bowel sounds, Soft Assessment/Plan - Assessment Assessment: 1.HYPOTHYROIDISM. 2.CHRONIC SMOKING. 3.DEMENTIA. 4.PSYCHOSIS - Plan Plan: continue current treatment Nutritional Asmnt/Malnutr-PDOC - Dietary Evaluation Malnutrition Findings (Please click <Entered> for more info): Nutritional Asmnt/Malnutrition Start: 06/08/19 10: 34 Text: Status: Complete Freq: Protocol: Document 06/08/19 10:35 KULWANT (Rec: 06/08/19 10:44 KULWANT RODRIGUEZ- [email or web address]) Nutritional Asmnt/Malnutrition Patient General Information Nutritional Screening Low Risk Diagnosis Psychosis Pertinent Medical Hx/Surgical Hx Hypothyroidism, dementia, psychosis Subjective Information Patient was admitted from [place]. Tolerating current diet order with adequate intake (100% of meals ). Current Diet Order/ Nutrition Support Regular Patient / S.O Not Indicated Pertinent Medications Maalox, Colace, MOM, Theragran Pertinent Labs (06/04) Albumin 3.8, TAG 268 Nutritional Hx/Data Height 1.85 m Height (Calculated Centimeters) 185.4 Current Weight (lbs) 90.718 kg Weight (Calculated Kilograms) 90.7 Weight (Calculated Grams) 42162.5 [place] Body Weight 184 % [place] Body Weight 108 Body Mass Index (BMI) 26.4 Recent Weight Change No Weight Status Overweight GI Symptoms GI Symptoms None Last BM 06/07 x 1 Difficult in: None Food Allergies No Cultural/Ethnic/Church Belief none indicated Usual diet at home unknown Skin Integrity/Comment: [place] 22, dryness Current %PO Good (75-100%) Estimated Nutritional Goals BEE in Kcals: Using Current wt Calories/Kcals/Kg 90.9 kg CBW (22-27 kcal/kg) Kcals Calculated ~7541-5494 kcal/day Protein: Using Current wt Protein g/k.8-1gm/kg Protein Calculated ~70-90 gm/day Fluid: ml ~7205-8016 ml/day (1 ml/kcal) Nutritional Problem No current Nutrition Prob Problem No nutrition diagnosis at this time Intervention/Recommendation Comments 1. Continue regular diet as tolerated by patient. Expected Outcomes/Goals Expected Outcomes/Goals Oral intake >75% of meals, weight stable or trend toward IBW, nutrition related labs WNL F/U LR 06/15
[2019-06-24] MEDS: Multivitamin Tab PO SCH (08:29)
[2019-06-24] MEDS: Aspirin 81mg Chewable Tab PO SCH (08:29)
--- NOTE | 2019-06-24 20:51 | Internal Medicine Prog Note ---
Internal Medicine Subjective - Subjective Service Date: 06/24/19 Patient seen and examined:: without staff (HE FEELS BETTER) Patient is:: awake, verbal, ambulating, talking, confused Per staff patient has:: no adverse event Internal Medicine Objective - Results Result Diagrams: 06/04/19 13:43 06/04/19 13:43 Recent Labs: Laboratory Last Values WBC 10.3 Th/cmm (4.8-10.8) 06/04/19 13:43 RBC 4.35 Mil/cmm (4.30-5.70) 06/04/19 13:43 Hgb 13.9 gm/dL (12-16) 06/04/19 13:43 Hct 41.1 % (41.0-60) 06/04/19 13:43 MCV 94.5 fl (80-99) 06/04/19 13:43 MCH 31.9 pg (26.0-30.0) H 06/04/19 13:43 MCHC Differential 33.7 pg (28.0-36.0) 06/04/19 13:43 RDW 13.4 % (11.5-20.0) 06/04/19 13:43 Plt Count 364 Th/cmm (150-400) 06/04/19 13:43 MPV 7.2 fl 06/04/19 13:43 Neutrophils % 69.2 % (40.0-80.0) 06/04/19 13:43 Lymphocytes % 23.7 % (20.0-50.0) 06/04/19 13:43 Monocytes % 6.7 % (2.0-10.0) 06/04/19 13:43 Eosinophils % 0.2 % (0.0-5.0) 06/04/19 13:43 Basophils % 0.2 % (0.0-2.0) 06/04/19 13:43 Sodium 136 mEq/L (136-145) 06/04/19 13:43 Potassium 4.1 mEq/L (3.5-5.1) 06/04/19 13:43 Chloride 106 mEq/L (98-107) 06/04/19 13:43 Carbon Dioxide 23.2 mEq/L (21.0-31.0) 06/04/19 13:43 Anion Gap 10.9 (7.0-16.0) 06/04/19 13:43 BUN 16 mg/dL (7-25) 06/04/19 13:43 Creatinine 1.1 mg/dL (0.7-1.3) 06/04/19 13:43 Est GFR ( Amer) > 60.0 ml/min (>90) 06/04/19 13:43 Est GFR (Non-Af Amer) > 60.0 ml/min 06/04/19 13:43 BUN/Creatinine Ratio 14.5 06/04/19 13:43 Glucose 86 mg/dL (70-105) 06/04/19 13:43 Calcium 9.1 mg/dL (8.6-10.3) 06/04/19 13:43 Total Bilirubin 0.4 mg/dL (0.3-1.0) 06/04/19 13:43 AST 14 U/L (13-39) 06/04/19 13:43 ALT 10 U/L (7-52) 06/04/19 13:43 Alkaline Phosphatase 37 U/L (34-104) 06/04/19 13:43 Troponin I < 0.01 ng/mL (0.01-0.05) L 06/04/19 13:43 Total Protein 6.7 gm/dL (6.0-8.3) 06/04/19 13:43 Albumin 3.8 gm/dL (4.2-5.5) L 06/04/19 13:43 Globulin 2.9 gm/dL 06/04/19 13:43 Albumin/Globulin Ratio 1.3 (1.0-1.8) 06/04/19 13:43 Triglycerides 268 mg/dL (<150) H 06/04/19 13:43 Cholesterol 147 mg/dL (<200) 06/04/19 13:43 LDL Cholesterol Direct 108 mg/dL (75-193) 06/04/19 13:43 HDL Cholesterol 29 mg/dL (23-92) 06/04/19 13:43 TSH 3.58 uIU/ml (0.34-5.60) 06/04/19 13:43 Urine Source CLEAN C 06/04/19 14:00 Urine Color YELLOW 06/04/19 14:00 Urine Clarity CLEAR (CLEAR) 06/04/19 14:00 Urine pH 6.5 (4.6 - 8.0) 06/04/19 14:00 Ur Specific [place] 1.020 (1.005-1.030) 06/04/19 14:00 Urine Protein NEGATIVE mg/dL (NEGATIVE) 06/04/19 14:00 Urine Glucose (UA) NEGATIVE mg/dL (NEGATIVE) 06/04/19 14:00 Urine Ketones NEGATIVE mg/dL (NEGATIVE) 06/04/19 14:00 Urine Blood NEGATIVE (NEGATIVE) 06/04/19 14:00 Urine Nitrate NEGATIVE (NEGATIVE) 06/04/19 14:00 Urine Bilirubin NEGATIVE (NEGATIVE) 06/04/19 14:00 Urine Urobilinogen 0.2 E.U./dL (0.2 - 1.0) 06/04/19 14:00 Ur Leukocyte Esterase NEGATIVE (NEGATIVE) 06/04/19 14:00 Urine RBC NONE SEEN /hpf (0-5) 06/04/19 14:00 Urine WBC 0-2 /hpf (0-5) 06/04/19 14:00 Ur Epithelial Cells OCCASIONAL /lpf (FEW) 06/04/19 14:00 Amorphous Sediment FEW URATES (NONE SEEN) 06/04/19 14:00 Urine Bacteria FEW /hpf (NONE SEEN) 06/04/19 14:00 Urine Mucus FEW /lpf (FEW) 06/04/19 14:00 Salicylates < 25.0 mg/L (30.0-100.0) L 06/04/19 13:43 Urine Opiates Screen NEGATIVE (NEGATIVE) 06/04/19 14:00 Urine Methadone Screen NEGATIVE (NEGATIVE) 06/04/19 14:00 Acetaminophen < 10.0 ug/mL (10.0-30.0) L 06/04/19 13:43 Ur Barbiturates Screen NEGATIVE (NEGATIVE) 06/04/19 14:00 Valproic Acid 74.1 ug/mL (50.0-100.0) 06/15/19 08:10 Ur Tricyclics Screen NEGATIVE (NEGATIVE) 06/04/19 14:00 Ur Phencyclidine Scrn NEGATIVE (NEGATIVE) 06/04/19 14:00 Amphetamines Screen NEGATIVE (NEGATIVE) 06/04/19 14:00 U Methamphetamines Scrn NEGATIVE (NEGATIVE) 06/04/19 14:00 U Benzodiazepines Scrn NEGATIVE (NEGATIVE) 06/04/19 14:00 U Cocaine Metab Screen NEGATIVE (NEGATIVE) 06/04/19 14:00 U Cannabinoids Screen NEGATIVE (NEGATIVE) 06/04/19 14:00 Ethyl Alcohol < 10 mg/dL (0-10) 06/04/19 13:43 RPR NONREACTIVE (NONREACTIVE) 06/04/19 13:43 - Physical Exam Vitals and I&O: Vital Signs Temp 98 F 06/24/19 20:04 Pulse 63 06/24/19 20:04 Resp 20 06/24/19 20:04 BP 125/82 06/24/19 20:04 Pulse Ox 98 06/24/19 20:04 Intake & Output 06/24/19 06/24/19 06/25/19 06:59 18:59 06:59 Intake Total 360 480 Balance 360 480 Intake: Oral 360 480 Other: # Voids 2 2 2 # Bowel Movements 0 0 Active Medications: Current Medications Acetaminophen (Tylenol) 650 mg PO Q4HR PRN PRN Reason: Mild Pain / Temp above 100 Stop: 08/03/19 15:58 Last Admin: 06/19/19 13:26 Dose: 650 mg Al Hydrox/Mg Hydrox/Simethicone (Maalox) 30 ml PO Q4HR PRN PRN Reason: GI DISTRESS Stop: 08/03/19 15:58 Aspirin (Aspirin Chewable) 81 mg PO DAILY EREN Stop: 08/04/19 08:59 Last Admin: 06/24/19 08:29 Dose: 81 mg Clonazepam (Klonopin) 1 mg PO BID EREN; Protocol Stop: 08/06/19 16:59 Last Admin: 06/24/19 16:51 Dose: 1 mg Divalproex Sodium (Depakote Er) 1,500 mg PO BID EREN; Protocol Stop: 08/04/19 08:59 Last Admin: 06/24/19 16:51 Dose: 1,500 mg Docusate Sodium (Colace) 250 mg PO DAILY EREN Stop: 08/04/19 08:59 Last Admin: 06/24/19 08:29 Dose: 250 mg [place] Carbonate (Eskalith) 300 mg PO TID EREN; Protocol Stop: 08/07/19 08:59 Last Admin: 06/24/19 20:35 Dose: 300 mg Lorazepam (Ativan) 0.5 mg PO Q6HR PRN; Protocol PRN Reason: Agitation Stop: 08/12/19 20:19 Last Admin: 06/24/19 14:50 Dose: 0.5 mg Magnesium Hydroxide (Milk Of Magnesia) 30 ml PO HS PRN PRN Reason: Constipation Multivitamins/Vitamin C (Theragran) 1 tab PO DAILY EREN Stop: 08/04/19 08:59 Last Admin: 06/24/19 08:29 Dose: 1 tab Quetiapine Fumarate (Seroquel) 200 mg PO BID EREN Stop: 08/23/19 08:59 Last Admin: 06/24/19 16:51 Dose: 200 mg Quetiapine Fumarate (Seroquel) 400 mg PO HS EREN; Protocol Stop: 08/23/19 20:59 Last Admin: 06/24/19 20:35 Dose: 400 mg Trazodone HCl (Desyrel) 200 mg PO HS EREN; Protocol Stop: 08/04/19 20:59 Last Admin: 06/24/19 20:36 Dose: 200 mg General: demented HEENT: NC/AT, PERRLA, EOMI, anicteric sclerae, throat clear Neck: Supple, No JVD, No thyromegaly, +2 carotid pulse wo bruit, No LAD Lungs: CTAB Cardiovascular: RRR, Normal S1, Normal S2, without murmur Abdomen: soft, non-tender, non-distended Extremities: clear Neurological: no change Internal Medicine Assmt/Plan - Assessment Assessment: 1.HYPOTHYROIDISM. 2.CHRONIC SMOKING. 3.DEMENTIA. 4.PSYCHOSIS - Plan Plan: CONTINUE ON CURRENT MEDICATION AND DIET. Nutritional Asmnt/Malnutr-PDOC - Dietary Evaluation Malnutrition Findings (Please click <Entered> for more info): Nutritional Asmnt/Malnutrition Start: 06/08/19 10: 34 Text: Status: Complete Freq: Protocol: Document 06/08/19 10:35 KULWANT (Rec: 06/08/19 10:44 KULWANT RODRIGUEZ- [id number]) Nutritional Asmnt/Malnutrition Patient General Information Nutritional Screening Low Risk Diagnosis Psychosis Pertinent Medical Hx/Surgical Hx Hypothyroidism, dementia, psychosis Subjective Information Patient was admitted from [facility]. Tolerating current diet order with adequate intake (100% of meals ). Current Diet Order/ Nutrition Support Regular Patient / S.O Not Indicated Pertinent Medications Maalox, Colace, MOM, Theragran Pertinent Labs (8/27) Albumin 3.8, TAG 268 Nutritional Hx/Data Height 1.85 m Height (Calculated Centimeters) 185.4 Current Weight (lbs) 90.718 kg Weight (Calculated Kilograms) 90.7 Weight (Calculated Grams) 47181.5 [place] Body Weight 184 % [place] Body Weight 108 Body Mass Index (BMI) 26.4 Recent Weight Change No Weight Status Overweight GI Symptoms GI Symptoms None Last BM 06/07 x 1 Difficult in: None Food Allergies No Cultural/Ethnic/[place] Belief none indicated Usual diet at home unknown Skin Integrity/Comment: [place] 22, dryness Current %PO Good (75-100%) Estimated Nutritional Goals BEE in Kcals: Using Current wt Calories/Kcals/Kg 90.9 kg CBW (22-27 kcal/kg) Kcals Calculated ~0258-8229 kcal/day Protein: Using Current wt Protein g/k.8-1gm/kg Protein Calculated ~70-90 gm/day Fluid: ml ~1358-4735 ml/day (1 ml/kcal) Nutritional Problem No current Nutrition Prob Problem No nutrition diagnosis at this time Intervention/Recommendation Comments 1. Continue regular diet as tolerated by patient. Expected Outcomes/Goals Expected Outcomes/Goals Oral intake >75% of meals, weight stable or trend toward IBW, nutrition related labs WNL F/U LR 06/15
--- NOTE | 2019-06-25 07:51 | Discharge Summary ---
DATE OF DISCHARGE: 06/25/2019 PATIENT'S AGE: 53. SEX: Male. PHYSICIAN: Dr. Escalante. FINAL DIAGNOSIS AND PRIMARY DIAGNOSIS: Schizoaffective disorder, manic episode, severe, with psychotic features. REASON FOR HOSPITALIZATION: The patient was admitted to the hospital from [facility] because of increased agitation and behavioral problems. The patient also was easily irritable and anxious. He also was restless and had difficulty following any of staff directions. HOSPITAL COURSE: The patient was restarted on lithium and also the patient was given Depakote in a dose of 1500 mg twice a day. Gradually, the patient's affect was brighter. The patient was less irritable and less agitated. He also interacted more with peers and others. The patient was discharged from the hospital back to [place]. PHYSICAL EXAMINATION: Showed no major medical problems. [place] and Depakote blood levels were ordered and results are pending. AFTER DISCHARGE PLANS: The patient discharged from the hospital and returned to [facility] with plans to follow him up there. EXPECTED OUTCOME AFTER DISCHARGE: Fair if the patient continued to comply with taking his psychotropic medications and follow up with discharge plans. Also, lithium and Depakote blood level will need to be monitored at least once every 3 months. [facility]# [id number]
[2019-06-25] MEDS: Aspirin 81mg Chewable Tab PO SCH (08:32)
[2019-06-25] MEDS: Multivitamin Tab PO SCH (08:32)
--- NOTE | 2019-06-25 19:23 | Progress Notes ---
DATE: 06/24/2019 SUBJECTIVE: Chart reviewed and the patient interviewed. Also discussed the patient's condition with the staff, and reviewed records and labs. The patient is focused on food and smoking. The patient also still has difficulty sleeping at night. The patient also is pacing up and down the unit, and he is still actively responding to stimuli. Otherwise, the patient is compliant with taking his medications with no side effects of medications. ASSESSMENT: The patient is still confused and actively responding and actively hallucinating. TREATMENT PLAN: We will continue monitoring his behavior and his condition closely. Also, we will change his Seroquel to 200 mg twice a day and 400 mg at bedtime; hopefully, this will help with his psychosis as well as his insomnia. Also, we will continue lithium 300 mg 3 times a day and the Depakote 1500 mg twice a day and Klonopin 1 mg twice a day. Also, we will get lithium and Depakote blood levels. JOB# [id number]
== END 2019-06-25 13:45 | DRG 885 ==
LOC: ER 13:17 → GERO2 14:34 → GERO 06-05 05:14
PROVIDERS: ADMIT Psychiatry & Neurology Psychiatry; ATTEND Psychiatry & Neurology Psychiatry
DX: F25.0 Schizoaffective disorder, bipolar type (principal); E03.9 Hypothyroidism, unspecified; I10 Essential (primary) hypertension; E78.5 Hyperlipidemia, unspecified; R56.9 Unspecified convulsions; F03.90 Unspecified dementia, unspecified severity, without behavioral disturbance, psychotic disturbance, mood disturbance, and anxiety; Z82.49 Family history of ischemic heart disease and other diseases of the circulatory system
CPT/HCPCS: 36415-UA; 80053-TC; 80061-TC; 80164-TC; 80307; 80320-TC; 80329-TC; 81001-TC; 83036-90; 84443-TC; 84484-TC; 85025-TC; 86592-TC; 93005; G0410; Z7610